=== PATIENT | male | born 1960 | race Caucasian/White ===

== ENCOUNTER 2018-08-01 18:26 | Emergency (ER) | payer MEDICARE, MEDICAID, SELFPAY ==
[2018-08-01 18:28] VITALS: BP 143/88; PULSE 97; RESP 20; TEMP 37
--- NOTE | 2018-08-01 18:34 | DI.RAD_ITS ---
SYMPTOM/DIAGNOSIS: CHOKED ON FOOD CHEST X-RAY: Portable AP view. Comparison 11/13/16 The heart is normal in size. The lungs are clear. The mediastinal structures and pleura appear intact. CONCLUSION: Normal chest.
--- NOTE | 2018-08-01 18:38 | ED.GENADUL_ITS ---
Discharge Plan Disposition Patient Disposition: HOME Condition: Good Discharge Details Chief Complaint: ThroatFB Clinical Impression: Esophageal foreign body Primary Care Provider: Elva Christian ED Provider: Isaias Ruiz Home Meds and New Rx's Prescriptions: No Action sucralfate [Carafate] 1 GM tablet 1 g PO QID Qty: 28 RF: 3 sertraline 100 MG tablet 200 mg PO DAILY RF: 0 haloperidol 1 MG tablet 2 mg PO HS RF: 0 simvastatin 80 MG tablet 80 mg PO HS RF: 0 topiramate [Topamax] 100 MG tablet 100 mg PO BID RF: 0 buspirone 15 MG tablet 30 mg PO BID RF: 0 quetiapine [Seroquel] 400 MG tablet 600 mg PO HS RF: 0 haloperidol 1 MG tablet 1 mg PO .QAM, NOON RF: 0 quetiapine [Seroquel] 400 MG tablet 400 mg PO QAM RF: 0 quetiapine [Seroquel] 400 MG tablet 400 mg PO .AFTERNOON RF: 0 naltrexone 50 MG tablet 50 mg PO DAILY RF: 0 omeprazole 40 MG capsule,delayed release(DR/EC) 40 mg PO BID Qty: 60 RF: 1 Discharge Instructions Instructions: Esophageal Foreign Body (ED) Additional Instructions: Please follow-up with Dr. Chaudhry as soon as possible for reassessment. Please eat soft foods, and avoid any meats. Please make sure all food is not very small pieces. Please take your home medications for your reflux. If you notice any worsening of your symptoms, or any new symptoms such as vomiting, diarrhea, fever, chills, shortness of breath, chest pain, numbness, weakness, or fainting , please return immediately to the emergency department for reevaluation. Please follow up with your primary care provider as soon as possible for reassessment and reevaluation. As always, it was a pleasure participating in your medical care today. Referrals: Elva Christian [Primary Care Provider] - Medical Decision Making This is a pleasant 57-year-old male with a very long and extensive history of food impaction, who presents today for evaluation of food impaction. He was eating a chicken piece, with no bone in it, when it got stuck in his throat. Most recent dilatation that he required for a food bolus impaction was back in April 3 months ago. Patient denies any other complaints. He is unable to completely manage his secretions secondary to the food impaction. Patient is hemodynamically stable, heart rate, lung sounds, and oxygen saturations are normal. We will give glucagon. I did contact Dr. Weiss who has managed the patient multiple times in the past, I discussed the scenario with him. He will come in to remove the patient's food impaction. Patient will be admitted under Dr. Weiss to the OR for definitive management. I have extensively reviewed the treatment plan with the patient. I have addressed all patient concerns at this time. I have also discussed the plan with the admitting physician and they agree with the current assessment and plan and have agreed to assume responsibility for the patient. All parties demonstrate verbal understanding and agreement with our assessment and plan at this time. 7:28 PM Immediately prior to going to the OR the patient had passage of his food bolus. Dr. Weiss had already assessed the patient. At this time since the patient has tolerated the passage of the food bolus, and is tolerating p.o.'s well without any vomiting or difficulty controlling secretions he can be discharged home. Dr. Weiss came and reevaluated the patient, and he agrees that he can be discharged home. Patient will be discharged with close follow-up with surgery center. I have extensively reviewed the treatment plan and discharge instructions with the patient. I have addressed all patient concerns at this time. The patient was made aware of what symptoms to monitor for that would warrant a return to the emergency department. Discussed the plan with the patient, they demonstrate verbal understanding and agreement with our assessment and plan at this time. FINDINGS: The lung aragon are clear bilaterally. No focal pulmonary consolidation is present. The cardiac silhouette is within normal limits. The costophrenic angles are sharp. The bony structures appear unremarkable. IMPRESSION: No evidence of acute cardiopulmonary disease. HPI General Date/Time Provider Initiated Documentation: 08/01/18 18:33 . HPI Narrative: This is a 57-year-old male with past medical history of esophageal impaction secondary to food boluses as well as schizophrenia and diabetes who presents today for difficulty swallowing. The patient states that roughly 45 minutes prior to arrival he was eating chicken when it got stuck again. No bones in it at that time. Since then he has been unable to control his secretions, get any liquids or solids down, and has had notable pain in the throat region. Patient denies any chest pain headache neck pain dizziness or trauma. He has no other complaints at this time. He denies any other recent surgeries, or pertinent family history. He denies any IV or illicit drug use. Related Data Home Medications Medication Instructions Recorded Confirmed buspirone 30 mg PO BID 09/06/15 08/01/18 haloperidol 2 mg PO HS 09/06/15 08/01/18 quetiapine [Seroquel] 600 mg PO HS 09/06/15 08/01/18 sertraline 200 mg PO DAILY 09/06/15 08/01/18 simvastatin 80 mg PO HS 09/06/15 08/01/18 topiramate [Topamax] 100 mg PO BID 09/06/15 08/01/18 sucralfate [Carafate] 1 g PO QID #28 tab-cap 04/02/17 08/01/18 haloperidol 1 mg PO .QAM, NOON 09/22/17 08/01/18 quetiapine [Seroquel] 400 mg PO .AFTERNOON 09/22/17 08/01/18 quetiapine [Seroquel] 400 mg PO QAM 09/22/17 08/01/18 naltrexone 50 mg PO DAILY 09/25/17 08/01/18 omeprazole 40 mg PO BID #60 capsule. 02/12/18 08/01/18 Previous Rx's Medication Instructions Recorded omeprazole 40 mg PO BID #60 capsule. 02/12/18 Allergies Allergy/AdvReac Type Severity Reaction Status Date / Time No Known Allergies Allergy Unverified 08/01/18 18:56 General Stated Complaint: ThroatFB GENEVIEVE: 2 Review of Systems Review of Systems All systems reviewed & are unremarkable except as noted in HPI and below PFSH Medical History COPD (chronic obstructive pulmonary disease) GERD (gastroesophageal reflux disease) Hyperlipidemia Impaired fasting glucose Schizophrenia Social History Smoking/Tobacco Use Status: Former Tobacco Use Surgical History EGD - MAC (03/13/17) EGD - MAC (09/25/17) EGD - MAC (02/12/18) Exam Narrative Exam Narrative: 1.Const: Well-nourished, Well-developed, appearing stated age 2.Eyes: PERRL, no conjunctival injection, and symmetrical lids. 3.ENT: Atraumatic external nose and ears. Moist MM. Neck: Symmetric, trachea midline, No thyromegaly. Patient is unable to control his secretions. Opening wide I am unable to visualize any evidence of food impaction. Trachea is soft. 4.CVS: +S1/S2, No murmurs or gallops. Peripheral pulses 2+ and equal in all extremities. Brisk capillary refill in all extremities. 5.RESP: Unlabored respiratory effort. Clear to auscultation bilaterally. No wheezes rales or rhonchi 6.GI: Soft, Nontender/Nondistended, No hepatosplenomegaly. No guarding or rebound. 7.MSK: Normocephalic/Atraumatic, Extremities w/o deformity or ttp No cyanosis or clubbing, Normal movement of all extremities 8.Skin: Warm, Dry. No rashes or lesions. 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 Sensation grossly intact, no focal neurologic deficits. 10.Psych: (AAO) x3. Appropriate mood and affect Course Vital Signs Temperature 37.0 C 08/01/18 18:28 Pulse 97 H 08/01/18 18:28 Respiratory Rate 20 08/01/18 18:28 Blood Pressure 143/88 H 08/01/18 18:28 Temperature 37.0 C 08/01/18 18:28 Temperature Source Skin 08/01/18 18:28 Pulse 97 H 08/01/18 18:28 Respiratory Rate 20 08/01/18 18:28 Blood Pressure 143/88 H 08/01/18 18:28 Blood Pressure Position Sitting 08/01/18 18:28 Oxygen Delivery Method Room Air 08/01/18 18:28 Oxygen Flow Rate 0 08/01/18 18:28
[2018-08-01] MEDS: MORPHine 10 MG/ML VIAL 4 MG IVP (18:44)
[2018-08-01] MEDS: Normal Saline 1,000 ML 1000 ML IV (18:45)
[2018-08-01 18:53] LABS: Abs Immature Grans 0.01 k/cumm (0.0-0.09); Absolute Basophil Count 0.03 k/cumm (0.0-0.2); Absolute Eosinophil Count 0.23 k/cumm (0.0-0.7); Absolute Lymphocyte Count 1.62 k/cumm (1.2-3.4); Absolute Monocyte Count 0.37 k/cumm (0.11-0.7); Absolute Neutrophil Count 2.82 k/cumm (1.2-6.7); Basophils % 0.6; Eosinophils % 4.5; HCT 42.3 % (40.0-50.0); HGB 13.9 g/dL (13.5-17.5); Immature Grans % 0.2; Lymphocytes % 31.9; Mean Corp. HGB Concentration 32.9 g/dL (32.0-36.0); Mean Corpuscular Hemoglobin 29.6 pg (27.0-33.0); Mean Corpuscular Volume 90.2 fL (80-95); Mean Platelet Volume 9.6 fL (8.0-11.0); Monocytes % 7.3; Neutrophils % 55.5; Platelet Count 200 x1000/uL (130-400); RBC 4.69 m/cumm (4.50-6.00); White Blood Cell Count 5.08 k/cumm (4.4-10.8)
[2018-08-01 19:04] LABS: ALT 35 U/L (12-78); AST 29 U/L (15-37); Albumin 3.9 g/dL (3.4-5.0); Alkaline Phosphatase 71 U/L (46-116); Anion Gap 12.4 mmol/L (3-11); BUN 11 mg/dL (7-18); Bilirubin, Total 0.2 mg/dL (0.2-1.0); CO2 25.6 mmol/L (21.0-32.0); CREATININE 0.81 mg/dL (0.70-1.30); Calcium 8.6 mg/dL (8.5-10.1); Chloride 104 mmol/L (98-107); Glucose 95 mg/dL (70-100); Potassium 3.4 mmol/L (3.5-5.1); Sodium 142 mmol/L (136-145); Total Protein 7.2 g/dL (6.4-8.2)
--- NOTE | 2018-08-01 19:19 | DI.VRAD_ITS ---
EXAM: XR Chest, 1 View EXAM DATE/TIME: 08/01/2018 6:35 PM CLINICAL HISTORY: 57 years old, male; Signs and symptoms; Other: Chocked on food TECHNIQUE: XR of the chest, 1 view. COMPARISON: CR RIGHT RIBS TO INCLUDE CXR 11/13/2016 9:19 AM FINDINGS: The lung aragon are clear bilaterally. No focal pulmonary consolidation is present. The cardiac silhouette is within normal limits. The costophrenic angles are sharp. The bony structures appear unremarkable. IMPRESSION: No evidence of acute cardiopulmonary disease. Dictated and Authenticated by: Russell Higuera MD. Ordering:LUCINA BUCKNER MD
[2018-08-01 19:39] VITALS: BP 117/69; PULSE 80; RESP 16; O2SAT 96
[2018-08-01 19:45] VITALS: BP 117/69; PULSE 80; RESP 16; O2SAT 96
== END 2018-08-01 19:48 | disposition home or self-care (01) ==
LOC: ER 19:58
PROVIDERS: Emergency Provider Student in an Organized Health Care Education/Training Program; PCP Family Medicine
DX: T18.128A Food in esophagus causing other injury, initial encounter (principal); R13.10 Dysphagia, unspecified; E11.9 Type 2 diabetes mellitus without complications
CPT/HCPCS: 36415; 80053; 96361; 96374; 96375; 99284; 71045; 85025; J1610; J2270

== ENCOUNTER → 2018-08-23 11:28 | Outpatient (BNVA) | payer MEDICARE, MEDICAID, SELFPAY | PROVIDERS: PCP Family Medicine; Referring Provider Family Medicine; Visit Provider Surgery | DX: T18.108D Unspecified foreign body in esophagus causing other injury, subsequent encounter (principal); J44.9 Chronic obstructive pulmonary disease, unspecified; F17.210 Nicotine dependence, cigarettes, uncomplicated | CPT/HCPCS: 99212; 99213 ==

== ENCOUNTER 2019-01-12 16:45 | Emergency (ER) | payer MEDICARE, MEDICAID, SELFPAY ==
[2019-01-12 16:52] VITALS: BP 143/76; PULSE 86; RESP 20; TEMP 36.8; O2SAT 95
--- NOTE | 2019-01-12 17:16 | W.ED.GENAD ---
Discharge Plan Disposition Patient Disposition: HOME Discharge Details Chief Complaint: ThroatFB Primary Care Provider: Elva Christian ED Provider: Shaun Sanches Home Meds and New Rx's Prescriptions: No Action sucralfate [Carafate] 1 GM tablet 1 g PO QID Qty: 28 RF: 3 sertraline 100 MG tablet 200 mg PO DAILY RF: 0 haloperidol 1 MG tablet 2 mg PO HS RF: 0 simvastatin 80 MG tablet 80 mg PO HS RF: 0 topiramate [Topamax] 100 MG tablet 100 mg PO BID RF: 0 buspirone 15 MG tablet 30 mg PO BID RF: 0 quetiapine [Seroquel] 400 MG tablet 600 mg PO HS RF: 0 haloperidol 1 MG tablet 1 mg PO .QAM, NOON RF: 0 quetiapine [Seroquel] 400 MG tablet 400 mg PO QAM RF: 0 quetiapine [Seroquel] 400 MG tablet 400 mg PO .AFTERNOON RF: 0 naltrexone 50 MG tablet 50 mg PO DAILY RF: 0 omeprazole 40 MG capsule,delayed release(DR/EC) 40 mg PO BID Qty: 60 RF: 1 Discharge Data Discharge Date/Time-TO BE ENTERED AT DEPARTURE: 01/12/19 17:25 Medical Decision Making Patient presenting the emergency department for chief complaint of esophageal foreign body. Patient states that he was eating meat approximately an hour prior to arrival when he noted a foreign body sensation in his throat. Patient has history of foreign body in his throat. Physical exam shows clear lung sounds but difficult phonation of patient, gurgling, and patient moderately managing secretions with some gurgling noises heard during phonation. Discussed risk versus benefit of patient using effervescent compared to other medical therapy and patient stated understanding risk of effervescent versus other possibilities and patient states that he is okay using effervescent granules. Patient given effervescent granules and water with me at bedside and after second drink of water patient had almost instantaneous relief of symptoms. Patient was observed for additional 40 minutes in the emergency depart and had no further worsening of symptoms or return of discomfort. Patient encouraged to return to the emergency department for new or worsening symptoms otherwise follow-up with primary care provider as needed. Return precautions discussed. After discussion of diagnosis and plan of care patient has no further needs, questions, or concerns and states clear understanding to return to the emergency department for any worsening symptoms. HPI General Mode of arrival: ambulatory. Date/Time Provider Initiated Documentation: 01/12/19 16:49. Limitations to Documentation: no limitations. Information obtained by: RN notes reviewed. History of Present Illness 58 year old M presents to the emergency department with the chief complaint of Foreign body throat, described as moderate and similar to prior episodes, with intensity rated at 4. Quality is described as aching, and is localized to the neck. Patient started experiencing this minute(s) (30) and it has been constant. No relieving factors improve symptom(s), Eating worsens symptoms . Patient notes no other symptoms.. Patient did receive the following treatments prior to arrival, none Related Data Home Medications Medication Instructions Recorded Confirmed buspirone 30 mg PO BID 09/06/15 08/23/18 haloperidol 2 mg PO HS 09/06/15 08/23/18 quetiapine [Seroquel] 600 mg PO HS 09/06/15 08/23/18 sertraline 200 mg PO DAILY 09/06/15 08/23/18 simvastatin 80 mg PO HS 09/06/15 08/23/18 topiramate [Topamax] 100 mg PO BID 09/06/15 08/23/18 sucralfate [Carafate] 1 g PO QID #28 tab-cap 04/02/17 08/23/18 haloperidol 1 mg PO .QAM, NOON 09/22/17 08/23/18 quetiapine [Seroquel] 400 mg PO .AFTERNOON 09/22/17 08/23/18 quetiapine [Seroquel] 400 mg PO QAM 09/22/17 08/23/18 naltrexone 50 mg PO DAILY 09/25/17 08/23/18 omeprazole 40 mg PO BID #60 capsule. 02/12/18 08/23/18 Previous Rx's Medication Instructions Recorded omeprazole 40 mg PO BID #60 capsule. 02/12/18 Allergies Allergy/AdvReac Type Severity Reaction Status Date / Time No Known Allergies Allergy Unverified 08/01/18 18:56 General Stated Complaint: ThroatFB GENEVIEVE: 2 Review of Systems ENT Reports as per HPI Cardiovascular Denies chest pain and Denies dyspnea Respiratory Denies dyspnea and Reports stridor [facility] Medical History COPD (chronic obstructive pulmonary disease) GERD (gastroesophageal reflux disease) Hyperlipidemia Impaired fasting glucose Schizophrenia Surgical History EGD - MAC (03/13/17) EGD - MAC (09/25/17) EGD - MAC (02/12/18) Social History Smoking/Tobacco Use Status: Current every day Tobacco Type: cigarettes Alcohol Intake: current Drug use: Never Substance use type: does not use Do you feel safe in your relationship?: Yes Exam Const General: cooperative, in distress moderate and respiratory and anxious Orientation: alert, awake and oriented x3 HENMT Face and sinus: normal facial exam Mouth: oral mucosae normal, lip normal, tongue normal, audible dysphonia, drooling, No mouth trauma, muffled voice, no trismus and No restricted motion Throat: posterior oropharynx normal and uvula midline Neck Neck: normal visual inspection, full ROM, trachea midline, supple and no anterior neck swelling Resp Effort & Inspection: not able to speak in complete sentences, labored, no retractions and stridor Auscultation: clear to auscultation bilaterally and lung sounds not diminished Cardio Rate: regular rate Rhythm: regular rhythm Heart Sounds: S1 normal and S2 normal Course Vital Signs Temperature 36.8 C 01/12/19 16:52 Pulse 86 01/12/19 16:52 Respiratory Rate 20 01/12/19 16:52 Blood Pressure 143/76 H 01/12/19 16:52 Pulse Oximetry 95 01/12/19 16:52 Temperature 36.8 C 01/12/19 16:52 Temperature Source Temporal Artery Scan 01/12/19 16:52 Pulse 86 01/12/19 16:52 Respiratory Rate 20 01/12/19 16:52 Respiratory Effort Non-Labored 01/12/19 16:52 Respiratory Pattern Normal 01/12/19 17:02 Blood Pressure 143/76 H 01/12/19 16:52 Pulse Oximetry 95 01/12/19 16:52 Oxygen Delivery Method Room Air 01/12/19 16:52 Oxygen Flow Rate 0 01/12/19 16:52
[2019-01-12 17:25] VITALS: BP 143/76; PULSE 86; RESP 20; TEMP 36.8; O2SAT 95
== END 2019-01-12 17:25 | disposition home or self-care (01) ==
PROVIDERS: Emergency Provider Nurse Practitioner Family; PCP Family Medicine
DX: T17.228A Food in pharynx causing other injury, initial encounter (principal)
CPT/HCPCS: 99282

== ENCOUNTER 2019-01-15 19:10 | Emergency (ER) | payer MEDICARE, MEDICAID, SELFPAY ==
[2019-01-15 19:14] VITALS: BP 135/74; PULSE 84; RESP 18; TEMP 36.6; O2SAT 96
--- NOTE | 2019-01-15 19:20 | W.ED.GENAD ---
Discharge Plan Disposition Patient Disposition: HOME Condition: Improving Discharge Details Chief Complaint: GenMedical Clinical Impression: Esophageal foreign body Primary Care Provider: Elva Christian ED Provider: Palmira Sanders Home Meds and New Rx's Prescriptions: Continued sucralfate [Carafate] 1 GM tablet 1 g PO QID Qty: 28 RF: 3 sertraline 100 MG tablet 200 mg PO DAILY RF: 0 simvastatin 80 MG tablet 80 mg PO HS RF: 0 topiramate [Topamax] 100 MG tablet 100 mg PO BID RF: 0 buspirone 15 MG tablet 30 mg PO BID RF: 0 quetiapine [Seroquel] 400 MG tablet 600 mg PO HS RF: 0 quetiapine [Seroquel] 400 MG tablet 200 mg PO QAM RF: 0 quetiapine [Seroquel] 400 MG tablet 200 mg PO .AFTERNOON RF: 0 naltrexone 50 MG tablet 50 mg PO DAILY RF: 0 omeprazole 40 MG capsule,delayed release(DR/EC) 40 mg PO BID Qty: 60 RF: 1 Discharge Instructions Instructions: Esophageal Foreign Body (ED) Additional Instructions: Encourage hydration. Please stop eating steak. Please keep follow-up appointment with general surgeon. If you develop difficulty breathing, shortness of breath, discomfort or other new/worsening symptoms please seek care urgently once again. Referrals: Elva Christian [Primary Care Provider] - Medical Decision Making Patient is a 58-year-old male presenting today with recurrent episode of esophageal foreign body. He reports he was eating steak right arm arrival and since that time he has not been able to handle secretions, has mild difficulty with phonation and pain in his throat. Reports that he feels the same as when he is a foreign bodies historically. Patient had used effervescent with good relief. He reports that he has had this on multiple occasions hysterically. His last EGD was last summer and reports that no cause of his recurrent esophageal foreign body issues were identified. Patient is having difficulty breathing Exam, patient is moving air well. He does have difficulty with phonation and voice is muffled. No notable deformity of the anterior throat. Difficulty managing secretions frequently spitting into emesis bag Patient I discussed risk/benefits of repeat effervescent usage. He voices understanding and wishes to proceed. Effervescent was placed into the patient's mouth and he attempted multiple occasions to clear his foreign body with fluid following packet. However, this was unsuccessful. Patient is continuing to breathe comfortably. Consult with Dr. Baird who will bring patient for EGD. We discussed Gluocagon and she advised that she will come in with plan for the patient to go to OR. 2 minutes after speaking with the general surgery, the patient call us back and let us know if the foreign body had passed. He is now able to drink water, phonation is clear and is handling secretions. We will continue to monitor the patient. Patient continues to feel well. He is drinking fluids. Denies any foreign body sensation, sore throat, difficulty breathing. No dysphonia. Patient has upcoming appointment with general surgeon for evaluation of his recurrent esophageal FB issues. Encouraged that he keep this appointment. We discussed new/worsening symptom and when to seek care urgently once again. All of her questions and concerns were addressed, he is in agreement with this plan. [facility] General Mode of arrival: ambulatory. Date/Time Provider Initiated Documentation: 01/15/19 19:20. Limitations to Documentation: no limitations. Information obtained by: patient and RN notes reviewed. History of Present Illness 58 year old M presents to the emergency department with the chief complaint of esophageal FB, described as severe, Quality is described as aching, and is localized to the mouth. Patient reports no radiation. Patient started experiencing this minute(s) and it has been constant. No relieving factors improve symptom(s), Eating worsens symptoms . Patient notes loss of appetite; denies chest pain, cough, fever/chills, nausea/vomiting, rash, shortness of breath and weakness. Patient did receive the following treatments prior to arrival, none Related Data Home Medications Medication Instructions Recorded Confirmed buspirone 30 mg PO BID 09/06/15 01/15/19 quetiapine [Seroquel] 600 mg PO HS 09/06/15 01/15/19 sertraline 200 mg PO DAILY 09/06/15 01/15/19 simvastatin 80 mg PO HS 09/06/15 01/15/19 topiramate [Topamax] 100 mg PO BID 09/06/15 01/15/19 sucralfate [Carafate] 1 g PO QID #28 tab-cap 04/02/17 01/15/19 quetiapine [Seroquel] 200 mg PO .AFTERNOON 09/22/17 01/15/19 quetiapine [Seroquel] 200 mg PO QAM 09/22/17 01/15/19 naltrexone 50 mg PO DAILY 09/25/17 01/15/19 omeprazole 40 mg PO BID #60 capsule. 02/12/18 01/15/19 Previous Rx's Medication Instructions Recorded omeprazole 40 mg PO BID #60 capsule. 02/12/18 Allergies Allergy/AdvReac Type Severity Reaction Status Date / Time No Known Allergies Allergy Unverified 01/15/19 19:38 General GENEVIEVE: 2 Review of Systems Constitutional Reports as per HPI, Denies chills, Denies fatigue, Denies fever(s) and Denies headache(s) ENT Reports as per HPI, Reports change in voice, Denies headache(s), Denies mouth pain, Reports sore throat (FB sensation) and Denies tongue swelling Cardiovascular Reports as per HPI, Denies chest pain and Denies dyspnea Respiratory Reports as per HPI, Denies cough and Denies dyspnea Gastrointestinal Reports as per HPI, Denies abdominal pain, Denies nausea and Denies vomiting Musculoskeletal Reports as per HPI and Denies back pain Integumentary/Breasts Reports as per HPI and Denies rash Neurologic Reports as per HPI and Denies headache(s) Endocrine Denies fatigue Allergic/Immunologic Denies tongue swelling [facility] Medical History COPD (chronic obstructive pulmonary disease) GERD (gastroesophageal reflux disease) Hyperlipidemia Impaired fasting glucose Schizophrenia Surgical History EGD - MAC (03/13/17) EGD - MAC (09/25/17) EGD - MAC (02/12/18) Social History Smoking/Tobacco Use Status: Current every day Tobacco Type: cigarettes Alcohol Intake: current Drug use: Never Substance use type: does not use Do you feel safe in your relationship?: Yes Exam Const General: cooperative, healthy appearing, comfortable, no acute distress and well developed Nutritional Appearance: average body habitus and well nourished Orientation: alert and awake HENMT Head: normal to inspection Face and sinus: normal facial exam Mouth: oral mucosae normal, lip normal, tongue normal, oropharynx normal and moist mucous membranes Teeth and gingiva: dentition normal Throat: posterior oropharynx normal and tonsils absent Neck Neck: normal visual inspection, full ROM, no lymphadenopathy, no meningeal signs, trachea midline, supple, no anterior neck swelling, no midline deformity, nontender, no tracheal deviation and No submandibular swelling Resp Effort & Inspection: normal respiratory effort, able to speak in complete sentences and no respiratory distress Auscultation: clear to auscultation bilaterally, no rales, no rhonchi and no wheezes Cardio Rate: regular rate Rhythm: regular rhythm Heart Sounds: S1 normal and S2 normal Skin General skin exam: no rashes or lesions noted Trauma: no lacerations or abrasions Neuro General: alert and awake Cognition: normal cognition Speech: speech normal Gait: normal gait Psych Appearance: grossly normal and well kempt Mental Status: mental status grossly normal Speech and Movement: speech and movement normal
--- NOTE | 2019-01-15 19:24 | ED.GENADUL_ITS ---
Discharge Plan Disposition Patient Disposition: HOME Condition: Improving Discharge Details Chief Complaint: GenMedical Clinical Impression: Esophageal foreign body Primary Care Provider: Elva Christian ED Provider: Palmira Sanders Home Meds and New Rx's Prescriptions: Continued sucralfate [Carafate] 1 GM tablet 1 g PO QID Qty: 28 RF: 3 sertraline 100 MG tablet 200 mg PO DAILY RF: 0 simvastatin 80 MG tablet 80 mg PO HS RF: 0 topiramate [Topamax] 100 MG tablet 100 mg PO BID RF: 0 buspirone 15 MG tablet 30 mg PO BID RF: 0 quetiapine [Seroquel] 400 MG tablet 600 mg PO HS RF: 0 quetiapine [Seroquel] 400 MG tablet 200 mg PO QAM RF: 0 quetiapine [Seroquel] 400 MG tablet 200 mg PO .AFTERNOON RF: 0 naltrexone 50 MG tablet 50 mg PO DAILY RF: 0 omeprazole 40 MG capsule,delayed release(DR/EC) 40 mg PO BID Qty: 60 RF: 1 Discharge Instructions Instructions: Esophageal Foreign Body (ED) Additional Instructions: Encourage hydration. Please stop eating steak. Please keep follow-up appointment with general surgeon. If you develop difficulty breathing, shortness of breath, discomfort or other new/worsening symptoms please seek care urgently once again. Referrals: Elva Christian [Primary Care Provider] - Medical Decision Making Patient is a 58-year-old male presenting today with recurrent episode of esophageal foreign body. He reports he was eating steak right arm arrival and since that time he has not been able to handle secretions, has mild difficulty with phonation and pain in his throat. Reports that he feels the same as when he is a foreign bodies historically. Patient had used effervescent with good relief. He reports that he has had this on multiple occasions hysterically. His last EGD was last summer and reports that no cause of his recurrent esophageal foreign body issues were identified. Patient is having difficulty breathing Exam, patient is moving air well. He does have difficulty with phonation and voice is muffled. No notable deformity of the anterior throat. Difficulty managing secretions frequently spitting into emesis bag Patient I discussed risk/benefits of repeat effervescent usage. He voices und erstanding and wishes to proceed. Effervescent was placed into the patient's mouth and he attempted multiple occasions to clear his foreign body with fluid following packet. However, this was unsuccessful. Patient is continuing to breathe comfortably. Consult with Dr. Baird who will bring patient for EGD. We discussed Gluocagojaspreet and she advised that she will come in with plan for the patient to go to OR. 2 minutes after speaking with the general surgery, the patient call us back and let us know if the foreign body had passed. He is now able to drink water, phonation is clear and is handling secretions. We will continue to monitor the patient. Patient continues to feel well. He is drinking fluids. Denies any foreign body sensation, sore throat, difficulty breathing. No dysphonia. Patient has upcoming appointment with general surgeon for evaluation of his recurrent esophageal FB issues. Encouraged that he keep this appointment. We discussed new/worsening symptom and when to seek care urgently once again. All of her questions and concerns were addressed, he is in agreement with this plan. [facility] General Mode of arrival: ambulatory . Date/Time Provider Initiated Documentation: 01/15/19 19:20 . Limitations to Documentation: no limitations . Information obtained by: patient and RN notes reviewed . History of Present Illness 58 year old M presents to the emergency department with the chief complaint of esophageal FB, described as severe, Quality is described as aching, and is localized to the mouth. Patient reports no radiation. Patient started experiencing this minute(s) and it has been constant. No relieving factors improve symptom(s), Eating worsens symptoms . Patient notes loss of appetite; denies chest pain, cough, fever/chills, nausea/vomiting, rash, shortness of breath and weakness. Patient did receive the following treatments prior to arrival, none Related Data Home Medications Medication Instructions Recorded Confirmed buspirone 30 mg PO BID 09/06/15 01/15/19 quetiapine [Seroquel] 600 mg PO HS 09/06/15 01/15/19 sertraline 200 mg PO DAILY 09/06/15 01/15/19 simvastatin 80 mg PO HS 09/06/15 01/15/19 topiramate [Topamax] 100 mg PO BID 09/06/15 01/15/19 sucralfate [Carafate] 1 g PO QID #28 tab-cap 04/02/17 01/15/19 quetiapine [Seroquel] 200 mg PO .AFTERNOON 09/22/17 01/15/19 quetiapine [Seroquel] 200 mg PO QAM 09/22/17 01/15/19 naltrexone 50 mg PO DAILY 09/25/17 01/15/19 omeprazole 40 mg PO BID #60 capsule. 02/12/18 01/15/19 Previous Rx's Medication Instructions Recorded omeprazole 40 mg PO BID #60 capsule. 02/12/18 Allergies Allergy/AdvReac Type Severity Reaction Status Date / Time No Known Allergies Allergy Unverified 01/15/19 19:38 General GENEVIEVE: 2 Review of Systems Constitutional Reports as per HPI, Denies chills, Denies fatigue, Denies fever(s) and Denies headache(s) ENT Reports as per HPI, Reports change in voice, Denies headache(s), Denies mouth pain, Reports sore throat (FB sensation) and Denies tongue swelling Cardiovascular Reports as per HPI, Denies chest pain and Denies dyspnea Respiratory Reports as per HPI, Denies cough and Denies dyspnea Gastrointestinal Reports as per HPI, Denies abdominal pain, Denies nausea and Denies vomiting Musculoskeletal Reports as per HPI and Denies back pain Integumentary/Breasts Reports as per HPI and Denies rash Neurologic Reports as per HPI and Denies headache(s) Endocrine Denies fatigue Allergic/Immunologic Denies tongue swelling [facility] Medical History COPD (chronic obstructive pulmonary disease) GERD (gastroesophageal reflux disease) Hyperlipidemia Impaired fasting glucose Schizophrenia Surgical History EGD - MAC (03/13/17) EGD - MAC (09/25/17) EGD - MAC (02/12/18) Social History Smoking/Tobacco Use Status: Current every day Tobacco Type: cigarettes Alcohol Intake: current Drug use: Never Substance use type: does not use Do you feel safe in your relationship?: Yes Exam Const General: cooperative, healthy appearing, comfortable, no acute distress and well developed Nutritional Appearance: average body habitus and well nourished Orientation: alert and awake HENMT Head: normal to inspection Face and sinus: normal facial exam Mouth: oral mucosae normal, lip normal, tongue normal, oropharynx normal and moist mucous membranes Teeth and gingiva: dentition normal Throat: posterior oropharynx normal and tonsils absent Neck Neck: normal visual inspection, full ROM, no lymphadenopathy, no meningeal signs, trachea midline, supple, no anterior neck swelling, no midline deformity, nontender, no tracheal deviation and No submandibular swelling Resp Effort & Inspection: normal respiratory effort, able to speak in complete sentences and no respiratory distress Auscultation: clear to auscultation bilaterally, no rales, no rhonchi and no wheezes Cardio Rate: regular rate Rhythm: regular rhythm Heart Sounds: S1 normal and S2 normal Skin General skin exam: no rashes or lesions noted Trauma: no lacerations or abrasions Neuro General: alert and awake Cognition: normal cognition Speech: speech normal Gait: normal gait Psych Appearance: grossly normal and well kempt Mental Status: mental status grossly normal Speech and Movement: speech and movement normal
--- NOTE | 2019-01-15 20:09 | NUR.NOTE ---
Nursing Note: 10 mins. after effervescent medication patient states he thinks it has moved and swallowed it. Water taken and swallowed. Palmira MISTRY notified and in room. --Cj HA. Patient now 2010 continues to speak well.
== END 2019-01-15 20:29 | disposition home or self-care (01) ==
PROVIDERS: Emergency Provider Physician Assistant; PCP Family Medicine
DX: T18.128A Food in esophagus causing other injury, initial encounter (principal); K21.9 Gastro-esophageal reflux disease without esophagitis; J44.9 Chronic obstructive pulmonary disease, unspecified; F17.210 Nicotine dependence, cigarettes, uncomplicated
CPT/HCPCS: 99283

== ENCOUNTER → 2019-02-25 10:13 | Outpatient (BNVA) | payer MEDICARE, MEDICAID, SELFPAY | PROVIDERS: PCP Family Medicine; Referring Provider Family Medicine; Visit Provider Physical Therapy Assistant | DX: R13.10 Dysphagia, unspecified (principal); J44.9 Chronic obstructive pulmonary disease, unspecified; Z87.891 Personal history of nicotine dependence | CPT/HCPCS: 99212; 99213 ==

== ENCOUNTER 2019-03-31 20:00 | Emergency (ER) | payer MEDICARE, MEDICAID, SELFPAY ==
[2019-03-31 20:04] VITALS: BP 139/84; PULSE 96; RESP 18; TEMP 36.4; O2SAT 94
--- NOTE | 2019-03-31 20:16 | W.ED.GENAD ---
Discharge Plan Disposition Patient Disposition: HOME Condition: Good Discharge Details Chief Complaint: ThroatFB Clinical Impression: Esophageal foreign body ED Provider: Sohan Rushing [place] Meds and New Rx's Prescriptions: Continued hydroxyzine HCl 25 mg tablet 25 mg PO QID RF: 0 sucralfate [Carafate] 1 GM tablet 1 g PO QID Qty: 28 RF: 3 sertraline 100 MG tablet 200 mg PO DAILY RF: 0 simvastatin 80 MG tablet 80 mg PO HS RF: 0 topiramate [Topamax] 100 MG tablet 100 mg PO BID RF: 0 buspirone 15 MG tablet 30 mg PO BID RF: 0 quetiapine [Seroquel] 400 mg tablet 800 mg PO HS RF: 0 naltrexone 50 mg tablet 100 mg PO DAILY RF: 0 omeprazole 40 MG capsule,delayed release(DR/EC) 40 mg PO BID Qty: 60 RF: 1 Vraylar 6 mg Capsule 6 mg PO DAILY RF: 0 Discharge Instructions Instructions: Soft Diet (ED), Esophageal Foreign Body (ED) Additional Instructions: Be sure to follow up with surgery in April as planned for repeat endoscopy. You need to remember to chew your food well prior to swallowing. Continue your medications for reflux. Soft diet for the next few days. Return to ED for any further problems swallowing, difficulty breathing. Referrals: [facility] [Provider Group] Medical Decision Making Patient with esophageal foreign body which he has had previously. No airway difficulty. Unable to swallow his own saliva. IV placed and glucagon was ordered. Plan was to contact radiology to bring over effervescent to use. However, prior to getting the glucagon patient was able to get some of the chicken up and the rest went down. He is now drinking soda without difficulty. He has no difficulty breathing. He has no pain with swallowing. Patient already has endoscopy scheduled in April per him as part of follow-up from previous esophagitis/gastritis/esophageal foreign body. He is to keep this appointment. He is to continue his reflux medications. Soft diet for the next couple of days. Return to ED for issues. Medical Records Medical records reviewed: Yes I reviewed the patient's medical records. HPI General Mode of arrival: ambulatory. Date/Time Provider Initiated Documentation: 03/31/19 20:07. Limitations to Documentation: no limitations. Information obtained by: patient. HPI Narrative: Patient presents to ED with complaint of esophageal foreign body. He has a piece of chicken stuck rather high up. He is unable to swallow anything including his saliva at this point. He has had this previously. He has waited a couple hours because a lot of times it will clear on its own. It has not cleared so he came in for evaluation. He does not have difficulty breathing at all. Related Data Home Medications Medication Instructions Recorded Confirmed buspirone 30 mg PO BID 09/06/15 03/31/19 sertraline 200 mg PO DAILY 09/06/15 03/31/19 simvastatin 80 mg PO HS 09/06/15 03/31/19 topiramate [Topamax] 100 mg PO BID 09/06/15 03/31/19 sucralfate [Carafate] 1 g PO QID #28 tab-cap 04/02/17 03/31/19 omeprazole 40 mg PO BID #60 capsule. 02/12/18 03/31/19 hydroxyzine HCl 25 mg tablet 25 mg PO QID 02/25/19 03/31/19 naltrexone 50 mg tablet 100 mg PO DAILY tab 02/25/19 03/31/19 quetiapine 400 mg tablet 800 mg PO HS tab 02/25/19 03/31/19 Vraylar 6 mg PO DAILY 03/31/19 03/31/19 Previous Rx's Medication Instructions Recorded omeprazole 40 mg PO BID #60 capsule. 02/12/18 Allergies Allergy/AdvReac Type Severity Reaction Status Date / Time No Known Allergies Allergy Verified 02/25/19 10:25 General Stated Complaint: ThroatFB GENEVIEVE: 3 Review of Systems Review of Systems As documented in HPI otherwise negative as below. Const: no fever, chills, weakness Resp: no cough, SOB, pleuritic pain CV: no CP, diaphoresis, edema, syncope GI: no abdominal pain, nausea, vomiting, diarrhea Neuro: no headache, numbness, focal weakness, confusion PFSH Medical History COPD (chronic obstructive pulmonary disease) GERD (gastroesophageal reflux disease) Hyperlipidemia Impaired fasting glucose Schizophrenia Surgical History EGD - MAC (03/13/17) EGD - MAC (09/25/17) EGD - MAC (05/25/18) Social History Smoking/Tobacco Use Status: Former Tobacco Use Alcohol Intake: current Alcohol Intake frequency: a few times a week Alcohol type: beer Drug use: Never Substance use type: does not use Do you feel safe at home: Yes Do you feel safe in your relationship?: Yes Exam Narrative Exam Narrative: Vitals: Afebrile with normal vital signs. Const: WDWN male in NAD. HEENT: NC/AT. Normal facial exam. Normal OP exam. Neck: Supple. Trachea midline. No stridor. Lungs: Normal respiratory effort. Lungs are clear. Cor: RRR without murmur/gallop. Good radial pulses. Neuro: A+O x 3. CN grossly in tact. Good strength and no focal deficit. Course Vital Signs Temperature 97.5 F L 03/31/19 20:04 Pulse 96 H 03/31/19 20:04 Respiratory Rate 18 03/31/19 20:04 Blood Pressure 139/84 03/31/19 20:04 Pulse Oximetry 94 L 03/31/19 20:04 Temperature 97.5 F L 03/31/19 20:04 Temperature Source Tympanic 03/31/19 20:04 Pulse 96 H 03/31/19 20:04 Respiratory Rate 18 03/31/19 20:04 Respiratory Effort Non-Labored 03/31/19 20:09 Respiratory Pattern Normal 03/31/19 20:09 Blood Pressure 139/84 03/31/19 20:04 Pulse Oximetry 94 L 03/31/19 20:04 Oxygen Delivery Method Room Air 03/31/19 20:04 Oxygen Flow Rate 0 03/31/19 20:04 Pain Level 8 03/31/19 20:04
--- NOTE | 2019-03-31 20:25 | NUR.NOTE ---
Nursing Note: meat cleared throat on its own prior to meds given Pt is feeling better.
[2019-03-31 20:32] VITALS: BP 119/81; PULSE 92; RESP 18; O2SAT 95
[2019-03-31 20:39] VITALS: BP 119/81; PULSE 92; RESP 18; O2SAT 95
== END 2019-03-31 20:41 | disposition home or self-care (01) ==
PROVIDERS: Emergency Provider Emergency Medicine; PCP Family Medicine
DX: T18.128A Food in esophagus causing other injury, initial encounter (principal); J44.9 Chronic obstructive pulmonary disease, unspecified; Z87.891 Personal history of nicotine dependence
CPT/HCPCS: 99283; 99282

== ENCOUNTER → 2019-05-06 09:18 | Outpatient (BNVA) | payer MEDICARE, MEDICAID, SELFPAY | PROVIDERS: PCP Family Medicine; Referring Provider Family Medicine; Visit Provider Physical Therapy Assistant | DX: R13.10 Dysphagia, unspecified (principal) | CPT/HCPCS: 99213 ==

== ENCOUNTER 2019-05-17 18:19 | Emergency (ER) | payer MEDICARE, MEDICAID, SELFPAY ==
[2019-05-17 18:22] VITALS: TEMP 36.8
--- NOTE | 2019-05-17 18:31 | W.ED.GENAD ---
Discharge Plan Disposition Patient Disposition: HOME Condition: Improving Discharge Details Chief Complaint: GenMedical Clinical Impression: Esophageal foreign body Primary Care Provider: Elva Christian ED Provider: Shaun Sanches Home Meds and New Rx's Prescriptions: No Action hydroxyzine HCl 25 mg tablet 25 mg PO QID RF: 0 sucralfate [Carafate] 1 GM tablet 1 g PO QID Qty: 28 RF: 3 sertraline 100 MG tablet 200 mg PO DAILY RF: 0 simvastatin 80 MG tablet 80 mg PO HS RF: 0 topiramate [Topamax] 100 MG tablet 100 mg PO BID RF: 0 buspirone 15 MG tablet 30 mg PO BID RF: 0 quetiapine [Seroquel] 400 mg tablet 800 mg PO HS RF: 0 naltrexone 50 mg tablet 100 mg PO DAILY RF: 0 omeprazole 40 MG capsule,delayed release(DR/EC) 40 mg PO BID Qty: 60 RF: 1 Vraylar 6 mg Capsule 6 mg PO DAILY RF: 0 Discharge Instructions Instructions: Esophageal Foreign Body (ED) Additional Instructions: Return immediately to the emergency department for any new or worsening symptoms. It is very important that you chew your food thoroughly and cut food into very small bites. Please follow-up with general surgery as previously arranged. Referrals: Elizabeth Jackson MD [ [facility] STAFF PHYSICIAN] - Medical Decision Making Patient presenting to the emergency department for chief complaint of esophageal foreign body. Patient states proximate 1 hour prior to arrival arriving to the emergency department he was eating steak along with some bread when he felt something get stuck in his throat. He tried effervescent soda drinking water and this did not help. Due to this he is presenting to the emergency department for evaluation. Patient does not have any drooling but does have a hoarse voice with audible gurgling. Lung sounds are clear patient is not tachypneic or in any respiratory failure or severe distress. Patient is very familiar to myself his eyes seen him before for the same issue. Plan to give effervescent tablets and glucagon prior to contacting surgery. Pending glucagon administration patient was given effervescent tablets and within 2 minutes patient had relief of symptoms. Patient is now breathing and talking appropriately with no further symptoms no further pain or discomfort no respiratory distress. Given this I do feel the patient is able to be safely discharged after period of monitoring. Patient monitored for an additional 30 minutes after resolution of symptoms had no new or worsening signs or symptoms. Patient is scheduled for endoscopy with Dr. Jackson this Thursday for this continue problem of food bolus. Return precautions were discussed with patient otherwise I feel that he is safe to go home. After discussion of diagnosis and plan of care patient has no further needs, questions, or concerns and states clear understanding to return to the emergency department for any worsening symptoms. HPI General Mode of arrival: ambulatory. Date/Time Provider Initiated Documentation: 05/17/19 18:25. Limitations to Documentation: no limitations. Information obtained by: patient. History of Present Illness 58 year old M presents to the emergency department with the chief complaint of Esophageal foreign body, described as moderate and similar to prior episodes, with intensity rated at 3. Quality is described as aching, and is localized to the neck. Patient started experiencing this hour(s) (1) and it has been constant. Related Data Home Medications Medication Instructions Recorded Confirmed buspirone 30 mg PO BID 09/06/15 05/17/19 sertraline 200 mg PO DAILY 09/06/15 05/17/19 simvastatin 80 mg PO HS 09/06/15 05/17/19 topiramate [Topamax] 100 mg PO BID 09/06/15 05/17/19 sucralfate [Carafate] 1 g PO QID #28 tab-cap 04/02/17 05/17/19 omeprazole 40 mg PO BID #60 capsule. 02/12/18 05/17/19 hydroxyzine HCl 25 mg tablet 25 mg PO QID 02/25/19 05/17/19 naltrexone 50 mg tablet 100 mg PO DAILY tab 02/25/19 05/17/19 quetiapine 400 mg tablet 800 mg PO HS tab 02/25/19 05/17/19 Vraylar 6 mg PO DAILY 03/31/19 05/17/19 Previous Rx's Medication Instructions Recorded omeprazole 40 mg PO BID #60 capsule. 02/12/18 Allergies Allergy/AdvReac Type Severity Reaction Status Date / Time No Known Allergies Allergy Verified 05/17/19 12:26 General Stated Complaint: GenMedical GENEVIEVE: 3 Review of Systems Constitutional Denies headache(s) ENT Reports as per HPI, Denies change in voice, Denies headache(s), Reports hoarseness, Denies mouth lesions, Reports nasal congestion, Reports odynophagia, Reports sore throat and Denies throat swelling Cardiovascular Denies chest pain Respiratory Denies chest congestion and Denies cough Gastrointestinal Reports odynophagia Neurologic Denies headache(s) Allergic/Immunologic Denies throat swelling [facility] Medical History COPD (chronic obstructive pulmonary disease) GERD (gastroesophageal reflux disease) Hyperlipidemia Impaired fasting glucose Schizophrenia Surgical History EGD - MAC (03/13/17) EGD - MAC (09/25/17) EGD - MAC (02/12/18) Social History Smoking/Tobacco Use Status: Former Tobacco Use Alcohol Intake: current Alcohol Intake frequency: a few times a week Alcohol type: beer Drug use: Never Substance use type: does not use Do you feel safe at home: Yes Do you feel safe in your relationship?: Yes Exam Const General: cooperative Orientation: alert, awake and oriented x3 [facility] General nose exam: external nose normal Mouth: oral mucosae normal, lip normal, tongue normal, drooling, muffled voice and no trismus Throat: posterior oropharynx normal, tonsils normal and uvula midline Neck Neck: normal visual inspection, full ROM, trachea midline, supple and no anterior neck swelling Resp Effort & Inspection: normal respiratory effort, able to speak in complete sentences and not tachypneic Auscultation: clear to auscultation bilaterally Cardio Rate: regular rate and not tachycardic Rhythm: regular rhythm Heart Sounds: S1 normal and S2 normal Course Vital Signs Temperature 36.8 C 05/17/19 18:22 Temperature 36.8 C 05/17/19 18:22 Temperature Source Skin 05/17/19 18:22 Respiratory Effort Non-Labored 05/17/19 18:24
[2019-05-17 18:39] VITALS: RESP 16
[2019-05-17 19:06] VITALS: BP 115/75; PULSE 75; RESP 16; O2SAT 100
== END 2019-05-17 19:09 | disposition home or self-care (01) ==
PROVIDERS: Emergency Provider Nurse Practitioner Family; PCP Family Medicine
DX: K22.2 Esophageal obstruction (principal); T18.128A Food in esophagus causing other injury, initial encounter; J44.9 Chronic obstructive pulmonary disease, unspecified; Z87.891 Personal history of nicotine dependence; K21.9 Gastro-esophageal reflux disease without esophagitis
CPT/HCPCS: 99284; 99283

== ENCOUNTER 2019-05-20 06:16 | Day surgery (SDC) | payer MEDICARE, MEDICAID, SELFPAY ==
[2019-05-20 06:27] VITALS: BP 115/73; PULSE 64; RESP 18; TEMP 36.5; O2SAT 100
[2019-05-20] MEDS: Lactated Ringers 1,000 ML 80 ML IV (06:37)
--- NOTE | 2019-05-20 07:18 | W.PM.DSUDISC ---
Discharge Plan Disposition Patient Disposition: HOME Condition: Good Discharge Details Reason For Visit: Dysphagia Attending Provider: Elizabeth Jackson Primary Care Provider: Elva Christian Home Meds and New Rx's Prescriptions: Continued hydroxyzine HCl 25 mg tablet 25 mg PO QID RF: 0 sucralfate [Carafate] 1 GM tablet 1 g PO QID Qty: 28 RF: 3 sertraline 100 MG tablet 200 mg PO DAILY RF: 0 simvastatin 80 MG tablet 80 mg PO HS RF: 0 topiramate [Topamax] 100 MG tablet 100 mg PO BID RF: 0 buspirone 15 MG tablet 30 mg PO BID RF: 0 quetiapine [Seroquel] 400 mg tablet 800 mg PO HS RF: 0 naltrexone 50 mg tablet 100 mg PO DAILY RF: 0 omeprazole 40 MG capsule,delayed release(DR/EC) 40 mg PO BID Qty: 60 RF: 1 Vraylar 6 mg Capsule 6 mg PO DAILY RF: 0 Discharge Instructions Additional Instructions: Findings: Your esophagus shows inflammation. No dilation was performed. My office will contact you with biopsy results. Continue antacids as prescribed. Do NOT eat meat or an obstruction will happen again. Follow up: Will make plans after biopsy results reviewed. Please call if you develop: fevers >101.5 Nausea or Vomiting Abdominal pain that is not transient DAY SURGERY UNIT POST COLONOSCOPY INSTRUCTIONS 1. Because there will be medication in your system for the next 24 hours, you may feel a little sleepy. Your coordination will be affected. Therefore: a. Do not drive or operate dangerous equipment for 24 hours. b. Do not drink alcohol beverages for 24 hours (not even beer). c. Plan to go home and rest for the day. 2. Generally there are no restrictions on your activity after a day or so has gone by, but you may feel a bit fatigued for a few days. 3 After you arrive home you may have a light meal and return to a normal diet as you can tolerate it without feeling sick to your stomach. 4. After surgery, you may feel pain or discomfort. This should be only transient, but if it persists please contact your doctor. 5. If there are any questions regarding the findings of your procedure, please feel free to contact your doctor. 6. If you are unable to contact your doctor with a problem, contact the hospital at [phone]. 7. Continue all your regular medications unless directed otherwise. I understand the above instructions and have no questions. Signature of Patient or Responsible Adult Escort Date/Time Name of Responsible Adult Escort Signature of Nurse Date/Time Activity:: Activity as Tolerated Diet:: Avoid large pieces of bread and meat Discharge Orders Discharge Orders: Discharge Order (Routine); Ordered 05/20/19 Ordered By: Elizabeth Jackson DS: Diagnosis Discharge Diagnosis (1) Esophagitis: Status: Acute (2) History of esophagogastroduodenoscopy (EGD):
[2019-05-20] MEDS: Lidocaine 2% Viscous 15 ML CUP (07:30)
--- NOTE | 2019-05-20 07:45 | ESO_PTH ---
PATIENT: Juanjo Story LOC: [facility] U#:[id number] AGE/SX: 58/M ROOM: RE05/20/[address]: Elizabeth Jackson MD : 1960 BED: DIS: 05/20/2019 SPEC #: [id number] RECD: 05/20/19 12:32 STATUS: JESSICA RAMON #: [id number] STEVE: 05/20/19 07:[address]: Elizabeth Jackson DEPT: Surgical Specimen RECD BY: Tita Mckinley ENTERED: 05/20/19 12:37 SP TYPE: Eso KATHARINE DR: Elva Christian Tissues: 1 - ESOPHAGUS BIOPSY 2 - ESOPHAGUS BIOPSY 3 - ESOPHAGUS BIOPSY Procedures: GROSS AND MICRO LEVEL 4 SPECIAL STAIN 1 Comments: [id number]
[2019-05-20 08:25] VITALS: BP 119/77; PULSE 66; RESP 18; O2SAT 94
--- NOTE | 2019-05-20 08:33 | ENDO_ITS ---
REPORT OF OPERATIVE PROCEDURE DATE OF SURGERY May 20, 2019 PREOPERATIVE DIAGNOSIS Esophagitis. POSTOPERATIVE DIAGNOSIS Esophagitis. PROCEDURES EGD with esophageal biopsies. SURGEON Elizabeth Jackson M.D. ANESTHESIA Monitored Anesthesia Care. INDICATIONS This is 58-year-old man who has frequent episodes of dysphagia and has had several episodes of food becoming lodged.. His last endoscopy about a year ago showed esophagitis. He has been prescribed a PPI and Carafate. PROCEDURE DESCRIPTION The patient was placed in the left lateral decubitus position. Propofol was titrated to sedation. The scope was advanced into his esophagus under direct visualization and down into the stomach and duodenum. There was no duodenitis or ulcers noted. The stomach itself appeared normal, including on retroflexed view with the exception of a very small hiatal hernia. The GE junction was carefully inspected and did not show any significant stricture or Larose's. The patient was noted to have esophagitis essentially through the entire esophagus with some linear areas of inflammation distributed fairly evenly throughout the esophagus. There was not one area that could be dilated. He did have some relative narrowing related to the inflammation and also was noted to have fairly fragile tissues. The findings are suspicious for eosinophilic esophagitis. I took biopsies from the distal mid and proximal esophagus. The tissue was noted to be quite fragile, which reinforced my decision not to do a dilation. He tolerated the procedure well and was stable to the Recovery. If the biopsies do not show eosinophilic esophagitis, then he may be a candidate for Giovanni procedure to reduce the degree of inflammation. CC: Elva Christian M.D.
== END 2019-05-20 09:00 | disposition home or self-care (01) ==
PROVIDERS: PCP Family Medicine; Visit Provider Surgery
PROC: 0DJ68ZZ Inspection of Stomach, Via Natural or Artificial Opening Endoscopic (ICD-10-PCS; CPT 43235; principal; 2019-05-20 07:30)
DX: K22.10 Ulcer of esophagus without bleeding (principal); K21.0 Gastro-esophageal reflux disease with esophagitis; K44.9 Diaphragmatic hernia without obstruction or gangrene; F20.9 Schizophrenia, unspecified
CPT/HCPCS: 43239; 88305; 88312; J2250; J3010

== ENCOUNTER 2019-06-08 07:37 | Outpatient (CLI) | payer MEDICARE, MEDICAID, SELFPAY ==
[2019-06-08 09:13] LABS: ALT 38 U/L (16-63); AST 24 U/L (15-37); Albumin 4.1 g/dL (3.4-5.0); Alkaline Phosphatase 73 U/L (46-116); Anion Gap 12.3 mmol/L (3-11); BUN 11 mg/dL (7-18); Bilirubin, Total 0.4 mg/dL (0.2-1.0); CO2 24.7 mmol/L (21.0-32.0); CREATININE 0.89 mg/dL (0.70-1.30); Calcium 8.8 mg/dL (8.5-10.1); Calculated LDL 61 mg/dL; Chloride 105 mmol/L (98-107); Cholesterol 145 mg/dL (50-200); Glucose 104 mg/dL (70-100); HDL Cholesterol 59 mg/dL (40-60); Sodium 142 mmol/L (136-145); Triglyceride 126 mg/dL (30-150)
[2019-06-08 09:39] LABS: Hemoglobin A1C 5.2 % (4.5-6.2)
== END 2019-06-08 07:57 ==
PROVIDERS: PCP Family Medicine; Visit Provider Nurse Practitioner Family
DX: F20.9 Schizophrenia, unspecified (principal); Z79.899 Other long term (current) drug therapy; E11.9 Type 2 diabetes mellitus without complications
CPT/HCPCS: 36415; 80053; 80061; 83036

== ENCOUNTER 2019-07-06 15:52 | Day surgery (SDC) | payer MEDICARE, MEDICAID, SELFPAY ==
[2019-07-06] VITALS (8 sets, daily range): BP systolic 113–136; BP diastolic 68–86; PULSE 75–90; RESP 17–19; TEMP 36.7; O2SAT 93–100
--- NOTE | 2019-07-06 15:58 | W.ED.GENAD ---
Discharge Plan Disposition Patient Disposition: HOME Condition: Improving Discharge Details Chief Complaint: ThroatFB Clinical Impression: Esophageal foreign body Attending Provider: Sonya Hodges Primary Care Provider: Elva Christian ED Provider: Brody Khalil Medical Decision Making 58-year-old male with a history of esophagitis, recurrent episodes of meat/food impaction. He presents stating that after eating pot roast this evening he felt food get stuck and has been unable to swallow his secretions. No difficulty breathing, no chest pain. Patient with no significant improvement with administration of effervescent bubbles. Seen in consultation by Dr Hodges and patient to be taken to OR for EGD. This is performed without incident. Due to bed shortage, the patient was brought from PACU back to the ED. He is now stable and improving. He is appropriate for discharge to home. HPI General Mode of arrival: ambulatory. Date/Time Provider Initiated Documentation: 07/06/19 15:54. Limitations to Documentation: no limitations. Information obtained by: patient. History of Present Illness 58 year old M presents to the emergency department with the chief complaint of Hyndman meat impaction at home, described as similar to prior episodes, Quality is described as dull and constant, and is localized to the neck. Patient reports no radiation. Patient started experiencing this minute(s) and it has been constant. No relieving factors improve symptom(s), No exacerbating factors reported . Patient notes other (Spitting secretions). Patient did receive the following treatments prior to arrival, none Related Data Home Medications Medication Instructions Recorded Confirmed buspirone 30 mg PO BID 09/06/15 07/06/19 sertraline 200 mg PO DAILY 09/06/15 07/06/19 simvastatin 80 mg PO HS 09/06/15 07/06/19 topiramate [Topamax] 100 mg PO BID 09/06/15 07/06/19 sucralfate [Carafate] 1 g PO QID #28 tab-cap 04/02/17 07/06/19 omeprazole 40 mg PO BID #60 capsule. 02/12/18 07/06/19 hydroxyzine HCl 25 mg tablet 25 mg PO QID 02/25/19 07/06/19 naltrexone 50 mg tablet 100 mg PO DAILY tab 02/25/19 07/06/19 quetiapine 400 mg tablet 800 mg PO HS tab 02/25/19 07/06/19 Vraylar 6 mg PO DAILY 03/31/19 07/06/19 Previous Rx's Medication Instructions Recorded omeprazole 40 mg PO BID #60 capsule. 02/12/18 Allergies Allergy/AdvReac Type Severity Reaction Status Date / Time No Known Allergies Allergy Verified 07/06/19 16:56 General Stated Complaint: ThroatFB GENEVIEVE: 2 Review of Systems Review of Systems Narrative: History of esophagitis, frequent meat impactions and endoscopies, most recently in April. No other complaint. [facility] Medical History COPD (chronic obstructive pulmonary disease) GERD (gastroesophageal reflux disease) Hyperlipidemia Impaired fasting glucose Schizophrenia Surgical History EGD - MAC (03/13/17) EGD - MAC (09/25/17) EGD - MAC (02/12/18) History of colonoscopy (Chronic) History of esophagogastroduodenoscopy (EGD) (Chronic) 05/20/19 Dr Elizabeth Jackson, [facility], If the biopsies do not show eosinophilic esophagitis, then he may be a candidate for Giovanni procedure to reduce the degree of inflammation. Social History Smoking/Tobacco Use Status: Former Tobacco Use Alcohol Intake: current Alcohol Intake frequency: a few times a week Alcohol type: beer Drug use: Never Substance use type: does not use Do you feel safe at home: Yes Do you feel safe in your relationship?: Yes Exam Narrative Exam Narrative: GEN: awake, alert, oriented 3. Pleasant, well groomed, interactive, spitting into bag. HEAD: Normocephalic, atraumatic ENT: Mucous membranes moist, oropharynx unremarkable, External ear exam unremarkable EYES: PERRL, EOMI NECK: Full ROM, no ZIYAD, no menigismus CHEST/RESP: Nontender, clear to auscultation bilateral, no wheeze/rhonchi/rales CARDIOVASCULAR: RRR, no murmur, rub neelam. 2+ Rad pulse bilateral ABDOMEN: Soft, nontender, no mass. +Bowel sounds EXT: Full ROM, no edema, no rash Neuro: Grossly normal neurologic exam, conversant, interactive. Psych: Speech fluent, thoughts congruent, affect normal Course Vital Signs Vital signs: Vital Signs Temperature 36.7 C 07/06/19 15:54 Pulse 85 07/06/19 15:54 Respiratory Rate 18 07/06/19 15:54 Blood Pressure 124/79 07/06/19 15:54 Pulse Oximetry 93 L 07/06/19 15:54 Temperature 36.7 C 07/06/19 15:54 Temperature Source Skin 07/06/19 15:54 Pulse 85 07/06/19 15:54 Respiratory Rate 18 07/06/19 15:54 Blood Pressure 124/79 07/06/19 15:54 Blood Pressure Position Sitting 07/06/19 15:54 Pulse Oximetry 93 L 07/06/19 15:54 Oxygen Delivery Method Room Air 07/06/19 15:54 Oxygen Flow Rate 0 07/06/19 15:54 Pain Level 10 07/06/19 15:54
--- NOTE | 2019-07-06 16:28 | W.SURGCON ---
Date of service: 07/06/19 Time of Service: 16:29 Assessment and Plan Assessment and plan (1) Esophageal foreign body: Status: Acute Assessment and plan: A\\ Esophageal food impaction P\\ EGD under general Risks, benefits and complications have been reviewed. Complications include but are not limited to bleeding, pain, perforation, aspiration and adverse reaction to the medications. Questions were entertained and answered to his satisfaction and they wished to proceed. No guarantees were given or implied. Qualifiers: Encounter type: initial encounter Qualified Code(s): T18.108A - Unspecified foreign body in esophagus causing other injury, initial encounter History of Present Illness Narrative: Mr. Story is a 58 year old male well known to me who came to the ER after getting food stuck in his throat again. He has been seen multiple times and has chronic esophagitis. He is on Omeprazole 40 mg BID and Carafate 1 gm QID. He was given a fizzy tab in the ER but it did not work unfortunately. He is still unable to swallow. He tells me that he ate shredded beef and carrotts and that he ate too fast again. He denies any chest pain or shortness of breath. Review of Systems Constitutional Constitutional: Denies fever(s) Eyes Eyes: Denies change in vision Cardiovascular Cardiovascular: Denies chest pain, Denies irregular heart rhythm, Denies palpitations and Denies dyspnea Respiratory Respiratory: Denies cough and Denies dyspnea Gastrointestinal Gastrointestinal: Reports as per HPI Genitourinary Genitourinary: Denies hematuria and Denies dysuria Endocrine Endocrine: Denies palpitations [facility] Medical History COPD (chronic obstructive pulmonary disease) GERD (gastroesophageal reflux disease) Hyperlipidemia Impaired fasting glucose Schizophrenia Surgical History EGD - MAC (03/13/17) EGD - MAC (09/25/17) EGD - MAC (02/12/18) History of colonoscopy (Chronic) History of esophagogastroduodenoscopy (EGD) (Chronic) 05/20/19 Dr Elizabeth Jackson, [facility], If the biopsies do not show eosinophilic esophagitis, then he may be a candidate for Giovanni procedure to reduce the degree of inflammation. Social History Smoking/Tobacco Use Status: Former Tobacco Use Alcohol Intake: current Alcohol Intake frequency: a few times a week Alcohol type: beer Drug use: Never Substance use type: does not use Do you feel safe at home: Yes Do you feel safe in your relationship?: Yes Exam Const General: cooperative, comfortable and no acute distress Orientation: alert and oriented x3 HENMT Head: normocephalic and atraumatic Resp Effort & Inspection: normal respiratory effort Auscultation: clear to auscultation bilaterally Cardio Rate: regular rate Rhythm: regular rhythm Heart Sounds: no gallops, no murmurs and no rubs GI Inspection: normal to inspection Palpation: soft and nontender Results Last Vital Signs Temp 98.1 F 07/06/19 15:54 Pulse 85 07/06/19 15:54 Resp 18 07/06/19 15:54 BP 124/79 07/06/19 15:54 Pulse Ox 93 L 07/06/19 15:54
[2019-07-06] MEDS: Lactated Ringers 1,000 ML 30 ML IV (18:50)
--- NOTE | 2019-07-06 19:14 | DSE_ITS ---
Date of service: 07/06/19 Time of Service: 19:15 DS: Diagnosis Discharge Diagnosis (1) Esophageal foreign body: Status: Acute Discharge Plan Disposition Patient Disposition: HOME Condition: Stable Discharge Details Chief Complaint: ThroatFB Clinical Impression: Esophageal foreign body Reason For Visit: esophageal foreign body Attending Provider: Sonya Hodges Primary Care Provider: Elva Christian ED Provider: Brody Khalil Home Meds and New Rx's Prescriptions: No Action hydroxyzine HCl 25 mg tablet 25 mg PO QID RF: 0 sucralfate [Carafate] 1 GM tablet 1 g PO QID Qty: 28 RF: 3 sertraline 100 MG tablet 200 mg PO DAILY RF: 0 simvastatin 80 MG tablet 80 mg PO HS RF: 0 topiramate [Topamax] 100 MG tablet 100 mg PO BID RF: 0 buspirone 15 MG tablet 30 mg PO BID RF: 0 quetiapine [Seroquel] 400 mg tablet 800 mg PO HS RF: 0 naltrexone 50 mg tablet 100 mg PO DAILY RF: 0 omeprazole 40 MG capsule,delayed release(DR/EC) 40 mg PO BID Qty: 60 RF: 1 Vraylar 6 mg Capsule 6 mg PO DAILY RF: 0 Discharge Orders Discharge Orders: Discharge Order (Routine); Ordered 07/06/19 Ordered By: Sonya Hodges DS: Data Vitals/I&O Vitals and I&O: Vital Signs Temperature 98.1 F 07/06/19 17:08 Temperature Source Temporal Artery Scan 07/06/19 17:08 Pulse 90 07/06/19 18:03 Respiratory Rate 18 07/06/19 17:08 Respiratory Effort 07/06/19 16:13 Respiratory Pattern Normal 07/06/19 16:13 Blood Pressure 136/77 07/06/19 18:03 Blood Pressure Position Sitting 07/06/19 15:54 Pulse Oximetry 96 07/06/19 18:03 Oxygen Delivery Method Room Air 07/06/19 18:03 Oxygen Flow Rate 0 07/06/19 18:03 Pain Level 10 07/06/19 15:54 Intake & Output 07/05/19 07/06/19 07/06/19 23:59 11:59 23:59 Intake Total 310 / 310 Balance 310 / 310 Weight 175 lb 0.012 oz Intake: IV 310 / 310 [facility] Medical History COPD (chronic obstructive pulmonary disease) GERD (gastroesophageal reflux disease) Hyperlipidemia Impaired fasting glucose Schizophrenia Surgical History EGD - MAC (03/13/17) EGD - MAC (09/25/17) EGD - MAC (02/12/18) History of colonoscopy (Chronic) History of esophagogastroduodenoscopy (EGD) (Chronic) 05/20/19 Dr Elizabeth Jackson, [facility], If the biopsies do not show eosinophilic esophagitis, then he may be a candidate for Giovanni procedure to reduce the degree of inflammation. Social History Smoking/Tobacco Use Status: Former Tobacco Use Alcohol Intake: current Alcohol Intake frequency: a few times a week Alcohol type: beer Drug use: Never Substance use type: does not use Do you feel safe at home: Yes Do you feel safe in your relationship?: Yes
--- NOTE | 2019-07-06 19:21 | W.PM.DSUDISC ---
Discharge Plan Disposition Patient Disposition: HOME Condition: Stable Discharge Details Chief Complaint: ThroatFB Clinical Impression: Esophageal foreign body Reason For Visit: esophageal foreign body Attending Provider: Sonya Hodges Primary Care Provider: Elva Christian ED Provider: Brody Khalil Home Meds and New Rx's Prescriptions: Continued hydroxyzine HCl 25 mg tablet 25 mg PO QID RF: 0 sucralfate [Carafate] 1 GM tablet 1 g PO QID Qty: 28 RF: 3 sertraline 100 MG tablet 200 mg PO DAILY RF: 0 simvastatin 80 MG tablet 80 mg PO HS RF: 0 topiramate [Topamax] 100 MG tablet 100 mg PO BID RF: 0 buspirone 15 MG tablet 30 mg PO BID RF: 0 quetiapine [Seroquel] 400 mg tablet 800 mg PO HS RF: 0 naltrexone 50 mg tablet 100 mg PO DAILY RF: 0 omeprazole 40 MG capsule,delayed release(DR/EC) 40 mg PO BID Qty: 60 RF: 1 Vraylar 6 mg Capsule 6 mg PO DAILY RF: 0 Discharge Instructions Additional Instructions: Diet: Please stay on a clear liquid diet for the next 12 hours then advance to soft, pureed diet for 24 hours. Please eat slowly and chew your food properly so this doesn't happen again. Follow up: as needed Please call if you develop: fevers >101.5 Nausea or Vomiting Abdominal pain that is not transient DAY SURGERY UNIT POST ENDOSCOPY INSTRUCTIONS 1. Because there will be medication in your system for the next 24 hours, you may feel a little sleepy. Your coordination will be affected. Therefore: a. Do not drive or operate dangerous equipment for 24 hours. b. Do not drink alcohol beverages for 24 hours (not even beer). c. Plan to go home and rest for the day. 2. Generally there are no restrictions on your activity after a day or so has gone by, but you may feel a bit fatigued for a few days. 3 After you arrive home you may have a light meal and return to a normal diet as you can tolerate it without feeling sick to your stomach. 4. After surgery, you may feel pain or discomfort. This should be only transient, but if it persists please contact your doctor. 5. If there are any questions regarding the findings of your procedure, please feel free to contact your doctor. 6. If you are unable to contact your doctor with a problem, contact the hospital at [phone]. 3. Continue all your regular medications unless directed otherwise. I understand the above instructions and have no questions. Signature of Patient or Responsible Adult Escort Date/Time Name of Responsible Adult Escort Signature of Nurse Date/Time Activity:: Activity as Tolerated Diet:: clear liquid diet for 12 hours Discharge Orders Discharge Orders: Discharge Order (Routine); Ordered 07/06/19 Ordered By: Sonya Hodges DS: Diagnosis Discharge Diagnosis (1) Esophageal foreign body: Status: Acute
--- NOTE | 2019-07-08 06:50 | W.PM.ENDDOP ---
Date of service: 07/06/19 Time of Service: 18:57 Endoscopy Report DATE OF PROCEDURE: 07/06/19 PRE-OP DIAGNOSIS: Esophageal foreign body POST-OP DIAGNOSIS: same PROCEDURE: EGD with removal of foreign body SURGEON: Sonya Hodges ANESTHESIA: GETA (ASA 2/ Ariella Yeung, SAVANAH) ESTIMATED BLOOD LOSS: 2 PATHOLOGY: none sent COMPLICATIONS: None DISPOSITION: PACU INDICATIONS: Mr. Story is a 58-year-old gentleman well-known to me. He has chronic esophageal inflammation on omeprazole 40 mg twice daily and Carafate 4 times daily. He comes into the emergency department again today having eaten too fast and got some meat stuck in his esophagus again. Unfortunately Mr. Story comes to the emergency department with this problem about every couple of months. Feels a tablets were tried by the emergency department but unfortunately does did not dislodge the food bolus. Risks benefits and complications of an EGD were reviewed with him and he wished to proceed. No guarantees were given or implied. PROCEDURE START TIME: 18:56 FINDINGS: Large piece of shredded meat found midesophagus. As in previous EGDs there is extensive inflammation going up to the mid esophagus. No masses were identified. PROCEDURE DESCRIPTION: After informed consent was obtained the patient was take to the operating room and placed in a supine position. Monitors were applied and a time out was done. The patients name, date of , procedure type, allergies to medications and metal in their body was reviewed. The patient was placed under general anesthesia and intubated without difficulty. Once the ET tube was secured the gastroscope was advanced through the oropharynx which was grossly normal into the esophagus. The proximal esophagus was normal. In the mid esophagus or large piece of shredded beef was identified. The surrounding bhagat were erythematous and there was slight bleeding. The EGD was then used to slowly and carefully push the food down which went pretty easily into the stomach. Once the food bolus was back in the stomach the esophagus was quickly inspected. No ulcerations or masses were noted. There was some swelling and inflammation and therefore no biopsies were done at this time. Patient's had previous EGDs with biopsies. The last one was recent. The scope was removed and the patient was woken up extubated and taken back to recovery in stable condition. There were no immediate complications. Follow up: Patient is to follow-up on an as-needed basis. I recommended to the patient to be on clear liquids for the next 24 hours to allow the edema and irritation to calm down a little bit. I then further recommended that the patient should have soft diet from now on. He should either pur?ed the meat or not have any meat at all as this is what keeps getting stuck in his esophagus. As recommended before he may be a candidate for a Giovanni fundoplication but he would need manometry and pH studies done prior to this. If the patient is interested in this I would recommend referral to general surgery done at [facility] who does Niss[place].
== END 2019-07-06 23:00 | disposition home or self-care (01) ==
LOC: ER 17:03 → DSU 18:45
PROVIDERS: Emergency Provider Emergency Medicine; PCP Family Medicine; Visit Provider Surgery
PROC: 0DC68ZZ Extirpation of Matter from Stomach, Via Natural or Artificial Opening Endoscopic (ICD-10-PCS; CPT 43247; principal; 2019-07-06 16:55)
DX: T18.128A Food in esophagus causing other injury, initial encounter (principal); K22.2 Esophageal obstruction; J44.9 Chronic obstructive pulmonary disease, unspecified; K21.0 Gastro-esophageal reflux disease with esophagitis; F20.9 Schizophrenia, unspecified; Z87.891 Personal history of nicotine dependence
CPT/HCPCS: 43247; 36415; 99214; 99253; 99285; 99284; J1100; J2405

== ENCOUNTER 2019-07-20 02:05 | Emergency (ER) | payer MEDICARE, MEDICAID, SELFPAY ==
[2019-07-20 02:10] VITALS: BP 139/79; PULSE 91; RESP 18; TEMP 37; O2SAT 96
--- NOTE | 2019-07-20 02:17 | W.ED.GENAD ---
Discharge Plan Disposition Patient Disposition: HOME Condition: Good Discharge Details Chief Complaint: ThroatFB Clinical Impression: Esophageal foreign body Primary Care Provider: Elva Christian ED Provider: Sohan Rushing Meds and New Rx's Prescriptions: Continued hydroxyzine HCl 25 mg tablet 25 mg PO QID RF: 0 sucralfate [Carafate] 1 GM tablet 1 g PO QID Qty: 28 RF: 3 sertraline 100 MG tablet 200 mg PO DAILY RF: 0 simvastatin 80 MG tablet 80 mg PO HS RF: 0 topiramate [Topamax] 100 MG tablet 100 mg PO BID RF: 0 buspirone 15 MG tablet 30 mg PO BID RF: 0 quetiapine [Seroquel] 400 mg tablet 800 mg PO HS RF: 0 naltrexone 50 mg tablet 100 mg PO DAILY RF: 0 omeprazole 40 MG capsule,delayed release(DR/EC) 40 mg PO BID Qty: 60 RF: 1 Vraylar 6 mg Capsule 6 mg PO DAILY RF: 0 Discharge Instructions Additional Instructions: Liquid/bland diet today. Continue sucralfate and omeprazole. Do not eat meat in the future. Follow-up with surgery who are considering referring you to [facility] for evaluation there to see if anything can help prevent this in the future. Return to ED if problems. Referrals: Elizabeth Jackson MD [ [facility] STAFF PHYSICIAN] - Medical Decision Making Patient with esophageal foreign body with history of same. Have tried the effervescent without success. Will place IV and try glucagon but I suspect it is too high up and will not work. Will likely need to have surgery come in once again. 3AM - Has not passed the meat bolus. Discussed with surgery. Will plan on OR first thing in morning. Patient aware. 06:15 - Patient reports that he is able to swallow now without issue. Dr. Jackson here and will cancel OR. Patient discharged, refer to surgery who will plan on referral to [facility] as this continues to be a problem. Medical Records Medical records reviewed: Yes I reviewed the patient's medical records. HPI General Mode of arrival: ambulatory. Date/Time Provider Initiated Documentation: 07/20/19 02:15. Limitations to Documentation: no limitations. Information obtained by: patient and old records reviewed. HPI Narrative: Patient presents to ED with esophageal foreign body. Patient has history of same. In fact he was just here on the . Patient reports eating roast beef tonight. He has had foreign body sensation and inability to swallow secretions since midnight. He is not having difficulty breathing. He presents now as he is not been able to get the foreign body to pass or come up. Related Data Home Medications Medication Instructions Recorded Confirmed buspirone 30 mg PO BID 09/06/15 07/20/19 sertraline 200 mg PO DAILY 09/06/15 07/20/19 simvastatin 80 mg PO HS 09/06/15 07/20/19 topiramate [Topamax] 100 mg PO BID 09/06/15 07/20/19 sucralfate [Carafate] 1 g PO QID #28 tab-cap 04/02/17 07/20/19 omeprazole 40 mg PO BID #60 capsule. 02/12/18 07/20/19 hydroxyzine HCl 25 mg tablet 25 mg PO QID 02/25/19 07/20/19 naltrexone 50 mg tablet 100 mg PO DAILY tab 02/25/19 07/20/19 quetiapine 400 mg tablet 800 mg PO HS tab 02/25/19 07/20/19 Vraylar 6 mg PO DAILY 03/31/19 07/20/19 Previous Rx's Medication Instructions Recorded omeprazole 40 mg PO BID #60 capsule. 02/12/18 Allergies Allergy/AdvReac Type Severity Reaction Status Date / Time No Known Allergies Allergy Verified 07/20/19 02:13 General Stated Complaint: ThroatFB GENEVIEVE: 3 Review of Systems Narrative: As documented in HPI otherwise negative as below. Const: no fever, chills, weakness Resp: no cough, SOB, pleuritic pain CV: no CP, diaphoresis, edema, syncope GI: no abdominal pain, nausea, vomiting, diarrhea Neuro: no headache, numbness, focal weakness, confusion PFSH Medical History COPD (chronic obstructive pulmonary disease) GERD (gastroesophageal reflux disease) Hyperlipidemia Impaired fasting glucose Schizophrenia Surgical History EGD - MAC (03/13/17) EGD - MAC (09/25/17) EGD - MAC (02/12/18) History of colonoscopy (Chronic) History of esophagogastroduodenoscopy (EGD) (Chronic) 05/20/19 Dr Elizabeth Jackson, [facility], If the biopsies do not show eosinophilic esophagitis, then he may be a candidate for Giovanni procedure to reduce the degree of inflammation. Social History Smoking/Tobacco Use Status: Former Tobacco Use Alcohol Intake: current Alcohol Intake frequency: a few times a week Alcohol type: beer Drug use: Never Substance use type: does not use Do you feel safe at home: Yes Do you feel safe in your relationship?: Yes Exam Narrative Exam Narrative: Vitals: Afebrile. Normal vitals and pulse oximetry on room air. Const: WDWN male in NAD. HEENT: NC/AT. Normal facial exam. Secretions pooling. Eyes: Normal conjunctiva and sclera. Neck: Supple. Trachea midline. Lungs: Normal respiratory effort. Lungs are clear. Cor: RRR without murmur/gallop. Good radial pulses. Neuro: A+O x 3. CN grossly in tact. Good strength and no focal deficit. Course Vital Signs Vital signs: Vital Signs Temperature 98.6 F 07/20/19 02:10 Pulse 91 H 07/20/19 02:10 Respiratory Rate 18 07/20/19 02:10 Blood Pressure 139/79 07/20/19 02:10 Pulse Oximetry 96 07/20/19 02:10 Temperature 98.6 F 07/20/19 02:10 Temperature Source Tympanic 07/20/19 02:10 Pulse 91 H 07/20/19 02:10 Respiratory Rate 18 07/20/19 02:10 Respiratory Effort Non-Labored 07/20/19 02:14 Blood Pressure 139/79 07/20/19 02:10 Pulse Oximetry 96 07/20/19 02:10 Oxygen Delivery Method Room Air 07/20/19 02:10 Oxygen Flow Rate 0 07/20/19 02:10 Pain Level 9 07/20/19 02:10
[2019-07-20] MEDS: Simethicone/Sod Bicarb/Cit Ac, 4 gram PACKET 1 PACKET PO (02:40)
[2019-07-20] MEDS: Lactated Ringers 1,000 ML 150 ML IV (02:49)
--- NOTE | 2019-07-20 04:50 | NUR.NOTE ---
Nursing Note: Pt requesting pain medication for pain 06/30, notified.
[2019-07-20] MEDS: ACETAMINOPHEN 1,000 MG/100 ML BTL 400 MG IVPB (05:06)
[2019-07-20 05:37] VITALS: BP 133/82; PULSE 82; RESP 18; O2SAT 99
[2019-07-20 06:29] VITALS: BP 133/82; PULSE 82; RESP 18; TEMP 37; O2SAT 99
== END 2019-07-20 06:30 | disposition home or self-care (01) ==
PROVIDERS: Emergency Provider Emergency Medicine; PCP Family Medicine
DX: T17.228A Food in pharynx causing other injury, initial encounter (principal); R73.01 Impaired fasting glucose
CPT/HCPCS: 36416; 82962; 96361; 96374; 99284; J0131; J1610

== ENCOUNTER → 2019-07-25 13:51 | Outpatient (BNVA) | payer MEDICARE, MEDICAID, SELFPAY | PROVIDERS: PCP Family Medicine; Referring Provider Family Medicine; Visit Provider Surgery | DX: K20.9 Esophagitis, unspecified (principal) | CPT/HCPCS: 99212; 99213 ==

== ENCOUNTER 2019-09-05 18:30 | Emergency (ER) | payer MEDICARE, MEDICAID, SELFPAY ==
[2019-09-05 18:34] VITALS: BP 129/69; PULSE 86; RESP 16; TEMP 36.3; O2SAT 98
--- NOTE | 2019-09-05 18:39 | W.ED.GENAD ---
Discharge Plan Disposition Patient Disposition: HOME Condition: Stable Discharge Details Chief Complaint: ThroatFB Clinical Impression: Esophageal foreign body Primary Care Provider: Elva Christian ED Provider: Brody Khalil Home Meds and New Rx's Prescriptions: Continued hydroxyzine HCl 25 mg tablet 25 mg PO QID RF: 0 sucralfate [Carafate] 1 GM tablet 1 g PO QID Qty: 28 RF: 3 sertraline 100 MG tablet 200 mg PO DAILY RF: 0 simvastatin 80 MG tablet 80 mg PO HS RF: 0 topiramate [Topamax] 100 MG tablet 100 mg PO BID RF: 0 buspirone 15 MG tablet 30 mg PO BID RF: 0 quetiapine [Seroquel] 400 mg tablet 800 mg PO HS RF: 0 naltrexone 50 mg tablet 100 mg PO DAILY RF: 0 omeprazole 40 MG capsule,delayed release(DR/EC) 40 mg PO BID Qty: 60 RF: 1 Vraylar 6 mg Capsule 6 mg PO DAILY RF: 0 Discharge Instructions Additional Instructions: Home to rest. Soft diet. Continue your regularly prescribed medications. Please pur?e your meat, or avoid meat in the diet. Return for any acute concerns. Medical Decision Making 58-year-old male with chronic NSAID relatively severe GERD with a history of frequent food impactions. Presents with upper esophageal sensation of obstruction and inability to swallow secretions after eating pork. He was given 2 administrations of glucagon as well as effervescent bubbles x2 with no initial improvement. Patient rested and subsequently was able to feel the meat impaction pass and take liquids without difficulty. I had discussed the case with Dr. Jackson who admonished as the patient to avoid eating meat. He will continue his prescribed medications. HPI General Mode of arrival: ambulatory. Date/Time Provider Initiated Documentation: 09/05/19 18:30. Limitations to Documentation: no limitations. Information obtained by: patient. History of Present Illness 58 year old M presents to the emergency department with the chief complaint of Recurrent food impaction, described as similar to prior episodes, Quality is described as dull and constant, and is localized to the neck. Patient reports no radiation. Patient started experiencing this minute(s) and it has been constant. No relieving factors improve symptom(s), No exacerbating factors reported . Patient did receive the following treatments prior to arrival, none Related Data Home Medications Medication Instructions Recorded Confirmed buspirone 30 mg PO BID 09/06/15 09/05/19 sertraline 200 mg PO DAILY 09/06/15 09/05/19 simvastatin 80 mg PO HS 09/06/15 09/05/19 topiramate [Topamax] 100 mg PO BID 09/06/15 09/05/19 sucralfate [Carafate] 1 g PO QID #28 tab-cap 04/02/17 09/05/19 omeprazole 40 mg PO BID #60 capsule. 02/12/18 09/05/19 hydroxyzine HCl 25 mg tablet 25 mg PO QID 02/25/19 09/05/19 naltrexone 50 mg tablet 100 mg PO DAILY tab 02/25/19 09/05/19 quetiapine 400 mg tablet 800 mg PO HS tab 02/25/19 09/05/19 Vraylar 6 mg PO DAILY 03/31/19 09/05/19 Previous Rx's Medication Instructions Recorded omeprazole 40 mg PO BID #60 capsule. 02/12/18 Allergies Allergy/AdvReac Type Severity Reaction Status Date / Time No Known Allergies Allergy Verified 09/05/19 18:36 General Stated Complaint: ThroatFB GENEVIEVE: 3 Review of Systems Narrative: 6 systems reviewed and otherwise negative. No chest pain or difficulty breathing. [facility] Medical History COPD (chronic obstructive pulmonary disease) GERD (gastroesophageal reflux disease) Hyperlipidemia Impaired fasting glucose Schizophrenia Social History Smoking/Tobacco Use Status: Former Tobacco Use Alcohol Intake: current Alcohol Intake frequency: a few times a week Alcohol type: beer Drug use: Never Substance use type: does not use Do you feel safe at home: Yes Do you feel safe in your relationship?: Yes Exam Narrative Exam Narrative: 58-year-old male with a history of recurrent meat impactions, chronic gastritis, for which she is been evaluated numerous times and surgery has most recently question referral for Giovanni fundoplication. He ate pork chops tonight and felt food become recurrently impacted in his upper throat. Course Vital Signs Vital signs: Vital Signs Temperature 36.3 C L 09/05/19 18:34 Pulse 86 09/05/19 18:34 Respiratory Rate 16 09/05/19 18:34 Blood Pressure 129/69 09/05/19 18:34 Pulse Oximetry 98 09/05/19 18:34 Temperature 36.3 C L 09/05/19 18:34 Pulse 86 09/05/19 18:34 Respiratory Rate 16 09/05/19 18:34 Blood Pressure 129/69 09/05/19 18:34 Blood Pressure Position Sitting 09/05/19 18:34 Pulse Oximetry 98 09/05/19 18:34 Oxygen Delivery Method Room Air 09/05/19 18:34 Oxygen Flow Rate 0 09/05/19 18:34 Pain Level 10 09/05/19 18:34
[2019-09-05] MEDS: Simethicone/Sod Bicarb/Cit Ac, 4 gram PACKET 1 PACKET PO ×2 (20:16→20:21)
--- NOTE | 2019-09-05 20:17 | NUR.NOTE ---
Nursing Note:191 Report received from Raeann HA regarding patient and previous treatment. Pt sitting up right in bed of rm 2 in ED. Pt has emesis bag where he is spitting up mostly saliva and a few pink pill fragments from a previous dose of simethicone he was given earlier. Pt reports that he's not feeling any change in symptoms. Pt to have effervescent granules to see if FB will come up or continue going down pts esophagus. Pt tolerating procedures well, and maintaining calm attitude toward his stay in ED. Apparently, this has occurred several times before. Will continue to monitor pts status.
--- NOTE | 2019-09-05 20:24 | NUR.NOTE ---
Nursing Note: At this time, patient has been given an additional dose of glucagon 1mg IV and a second dose of effervescent capsules to aid in loosening the FB. Pt's vitals remain stable and patient tolerating spitting up saliva as best he can. No other needs at this time.
[2019-09-06 00:33] VITALS: BP 155/67; PULSE 74; RESP 16; TEMP 36.8; O2SAT 99
== END 2019-09-05 20:41 | disposition home or self-care (01) ==
PROVIDERS: Emergency Provider Emergency Medicine; PCP Family Medicine
DX: T18.128A Food in esophagus causing other injury, initial encounter (principal); K22.2 Esophageal obstruction; K21.9 Gastro-esophageal reflux disease without esophagitis; J44.9 Chronic obstructive pulmonary disease, unspecified; Z87.891 Personal history of nicotine dependence
CPT/HCPCS: 96374; 96376; 99284; 99283; J1610

== ENCOUNTER 2020-01-29 20:14 | Emergency (ER) | payer MEDICARE, MEDICAID, SELFPAY ==
[2020-01-29 20:20] VITALS: BP 135/73; PULSE 87; RESP 16; TEMP 36.1; O2SAT 96
--- NOTE | 2020-01-29 20:21 | ED.GENADUL_ITS ---
Discharge Plan Disposition Patient Disposition: HOME Condition: Good Discharge Details Chief Complaint: ThroatFB Clinical Impression: Esophageal foreign body Primary Care Provider: Elva Christian ED Provider: Isaias Ruiz Home Meds and New Rx's Prescriptions: Continued hydroxyzine HCl 25 mg tablet 25 mg PO QID RF: 0 sucralfate [Carafate] 1 GM tablet 1 g PO QID Qty: 28 RF: 3 sertraline 100 MG tablet 200 mg PO DAILY RF: 0 simvastatin 80 MG tablet 80 mg PO HS RF: 0 topiramate [Topamax] 100 MG tablet 100 mg PO BID RF: 0 buspirone 15 MG tablet 30 mg PO BID RF: 0 quetiapine [Seroquel] 400 mg tablet 800 mg PO HS RF: 0 naltrexone 50 mg tablet 100 mg PO DAILY RF: 0 omeprazole 40 MG capsule,delayed release(DR/EC) 40 mg PO BID Qty: 60 RF: 1 Vraylar 6 mg Capsule 6 mg PO DAILY RF: 0 Discharge Instructions Instructions: Food Impaction (ED) Additional Instructions: Your food impaction has passed. Make sure to take small bites as much as possible. Drink plenty of fluids. Do not hesitate to contact me this evening if you have any return of your symptoms. If you notice any worsening of your symptoms, or any new symptoms such as vomiting, diarrhea, fever, chills, shortness of breath, chest pain, numbness, weakness, or fainting , please return immediately to the emergency department for reevaluation. Please follow up with your primary care provider as soon as possible for reassessment and reevaluation. As always, it was a pleasure participating in your medical care today. Referrals: Elva Christian [Primary Care Provider] - Medical Decision Making Pleasant 59-year-old male with a past medical history of multiple foreign bodies in his esophagus presents for suspicion of this. Patient states that 1 hour ago he was eating some steak when he took his first bite, thought he chewed it thoroughly, but then felt that it got stuck. He has been suffering with it for the last hour and then while he was sitting in the waiting room he felt that it passed. Currently he denies any pain difficulty controlling his secretions chest pain shortness of breath or other complaints. He feels much better at this time. Exam is notably benign, he tolerated p.o. fluids extremely well here, he tolerated food well without complication. Signs and symptoms are clinically consistent with passed foreign body. Recommend close follow-up, thorough chewing, and avoidance of large meat boluses. I have extensively reviewed the treatment plan and discharge instructions with the patient. I have addressed all patient concerns at this time. The patient was made aware of what symptoms to monitor for that would warrant a return to the emergency department. Discussed the plan with the patient, they demonstrate verbal understanding and agreement with our assessment and plan at this time. HPI General Date/Time Provider Initiated Documentation: 01/29/20 20:15 . HPI Narrative: Pleasant 59-year-old male with a past medical history of multiple foreign bodies in his esophagus presents for suspicion of this. Patient states that 1 hour ago he was eating some steak when he took his first bite, thought he chewed it thoroughly, but then felt that it got stuck. He has been suffering with it for the last hour and then while he was sitting in the waiting room he felt that it passed. Currently he denies any pain difficulty controlling his secretions chest pain shortness of breath or other complaints. He feels much better at this time. He denies fever chills vomiting diarrhea chest pain numbness tingling weakness vision changes or headache. Related Data Home Medications Medication Instructions Recorded Confirmed buspirone 30 mg PO BID 09/06/15 01/29/20 sertraline 200 mg PO DAILY 09/06/15 01/29/20 simvastatin 80 mg PO HS 09/06/15 01/29/20 topiramate [Topamax] 100 mg PO BID 09/06/15 01/29/20 sucralfate [Carafate] 1 g PO QID #28 tab-cap 04/02/17 01/29/20 omeprazole 40 mg PO BID #60 capsule. 02/12/18 01/29/20 hydroxyzine HCl 25 mg tablet 25 mg PO QID 02/25/19 01/29/20 naltrexone 50 mg tablet 100 mg PO DAILY tab 02/25/19 01/29/20 quetiapine 400 mg tablet 800 mg PO HS tab 02/25/19 01/29/20 Vraylar 6 mg PO DAILY 03/31/19 01/29/20 Previous Rx's Medication Instructions Recorded omeprazole 40 mg PO BID #60 capsule. 02/12/18 Allergies Allergy/AdvReac Type Severity Reaction Status Date / Time No Known Allergies Allergy Verified 01/29/20 20:23 General GENEVIEVE: 3 Review of Systems All systems reviewed & are unremarkable except as noted in HPI and below PFSH Medical History COPD (chronic obstructive pulmonary disease) GERD (gastroesophageal reflux disease) Hyperlipidemia Impaired fasting glucose Schizophrenia Social History Smoking/Tobacco Use Status: Former Tobacco Use Alcohol Intake: current Alcohol Intake frequency: a few times a week Alcohol type: beer Drug use: Never Substance use type: does not use Do you feel safe at home: Yes Do you feel safe in your relationship?: Yes Exam Narrative Exam Narrative: 1.Const: Well-nourished, Well-developed, appearing stated age 2.Eyes: PERRL, no conjunctival injection, and symmetrical lids. 3.ENT: Atraumatic external nose and ears. Moist MM. Neck: Symmetric, trachea midline, No thyromegaly. No difficulty controlling secretions whatsoever. 4.CVS: +S1/S2, No murmurs or gallops. Peripheral pulses 2+ and equal in all extremities. Brisk capillary refill in all extremities. 5.RESP: Unlabored respiratory effort. Clear to auscultation bilaterally. No wheezes rales or rhonchi 6.GI: Soft, Nontender/Nondistended, No hepatosplenomegaly. No guarding or rebound. 7.MSK: Normocephalic/Atraumatic, Extremities w/o deformity or ttp No cyanosis or clubbing, Normal movement of all extremities 8.Skin: Warm, Dry. No rashes or lesions. 9.Neuro: cryptographic vulnerability analyst II-XII grossly intact. Sensation grossly intact, no focal neurologic deficits. 10.Psych: (AAO) x3. Appropriate mood and affect
== END 2020-01-29 20:25 | disposition home or self-care (01) ==
LOC: ER 22:45
PROVIDERS: Emergency Provider Student in an Organized Health Care Education/Training Program; PCP Family Medicine
DX: T18.128A Food in esophagus causing other injury, initial encounter (principal); K22.2 Esophageal obstruction; J44.9 Chronic obstructive pulmonary disease, unspecified; Z87.891 Personal history of nicotine dependence
CPT/HCPCS: 99282

== ENCOUNTER 2020-03-19 11:46 | Day surgery (SDC) | payer MEDICARE, MEDICAID, SELFPAY ==
[2020-03-19] VITALS (31 sets, daily range): BP systolic 107–149; BP diastolic 61–91; PULSE 68–88; RESP 18; TEMP 36.4–37; O2SAT 96–99
[2020-03-19] MEDS: Glucagon 1 MG VIAL IVP ×2 (12:13→13:09)
--- NOTE | 2020-03-19 12:35 | DI.RAD_ITS ---
EXAM: XR SOFT TISSUE NECK CLINICAL HISTORY: FB in throat. TECHNIQUE: 2D digital imaging was performed. COMPARISON: No exams were available for comparison FINDINGS: BONES: No acute fracture is present. No bony destructive lesion is seen. JOINTS: No dislocation present. SOFT TISSUE: No definite foreign body is identified. IMPRESSION: No definite foreign body is identified. If there is continued concern, direct visualization should b e considered. Findings were discussed with the emergency department. DATA REPOSITORY: RADIATION DOSE DELIVERED:
--- NOTE | 2020-03-19 12:36 | W.ED.GENAD ---
Discharge Plan Disposition Patient Disposition: [facility] Condition: Stable Discharge Details Chief Complaint: ThroatFB Clinical Impression: Esophageal foreign body Primary Care Provider: Elva Christian ED Provider: Catie Pedraza Home Meds and New Rx's Prescriptions: No Action hydroxyzine HCl 25 mg tablet 25 mg PO QID RF: 0 sucralfate [Carafate] 1 GM tablet 1 g PO QID Qty: 28 RF: 3 sertraline 100 MG tablet 200 mg PO DAILY RF: 0 simvastatin 80 MG tablet 80 mg PO HS RF: 0 topiramate [Topamax] 100 MG tablet 100 mg PO BID RF: 0 buspirone 15 MG tablet 30 mg PO BID RF: 0 quetiapine [Seroquel] 400 mg tablet 800 mg PO HS RF: 0 naltrexone 50 mg tablet 100 mg PO DAILY RF: 0 omeprazole 40 MG capsule,delayed release(DR/EC) 40 mg PO BID Qty: 60 RF: 1 Vraylar 6 mg Capsule 6 mg PO DAILY RF: 0 Medical Decision Making <FEDE Chang - Last Filed: 03/19/20 15:06> This is a 59-year-old patient well-known to the emergency room for food bolus who presents after eating meat which he reports he ate too quickly. Patient presents to the emergency room complaining of sensation of foreign body in his throat, spitting up secretions. Patient did report he attempted seltzer at home without relief. Patient denies difficulty breathing, shortness of breath or wheezing. Patient reports this does seem similar to previous foreign bodies. Initial vital signs are reviewed. Patient denies any blood in his secretions. Patient's medical history includes COPD, GERD, hyperlipidemia, schizophrenia. After initial evaluation IV access ordered, will attempt granular effervescence, as well as glucagon 1mg IV. Patient does report success with this initial management in the past. Patient has required operating room intervention historically. After approximately 30 minutes patient denies any significant improvement of his symptoms. 1300: Called to Dr. Rivers who is familiar with the patient, discussed case. She recommends another trial of glucagon 1 mg IV in addition to another round of effervescence. She will check in around approximately 230 for reevaluation. Reevaluation the patient reveals persistence of symptoms, mild improvement in drooling. Patient reports persistent pain approximately 9 out of 10. Patient provided Toradol IV for pain relief given patient does take naltrexone and has taken 100 mg by mouth this morning. no relief in pain after Toradol. We will plan to provide 500 mL's IV fluid bolus, as well as Ativan and offer med for additional pain control. 1500 - Dr. Jackson arrived to the emergency room to evaluate the patient, discussed with the patient at the bedside. Plans to bring patient to the operating room for food bolus management. <Rosy Bardales DO - Last Filed: 03/19/20 15:40> I have seen and examined this patient. I discussed case and reviewed note with the PA and I agree with plan and note as documented. HPI <FEDE Chang - Last Filed: 03/19/20 15:06> General Date/Time Provider Initiated Documentation: 03/19/20 11:48. HPI Narrative: This is a 59-year-old patient presenting to the emergency room for concern of food bolus. Patient reports he was eating meat 45 minutes prior to arrival specifically [employer] which he reports was cut into small pieces but he ate quickly. Patient reports sensation of food bolus in the right side of his neck. Patient presents to the emergency room drooling. He does report he tried seltzer water prior to arrival unsuccessfully. Patient does describe some discomfort associated. Patient does have a history of several esophageal food boluses historically, many ER evaluations for similar. Most recently 01/29/2020. Patient reports no difficulty breathing or shortness of breath. Patient denies any chest pain. Denies abdominal pain. Patient describes pain in the right anterior neck. Patient does report he has experienced pain with food bolus in the past. Patient denies any headache or dizziness. Patient is able to speak and provide history. Related Data Home Medications Medication Instructions Recorded Confirmed buspirone 30 mg PO BID 09/06/15 03/19/20 sertraline 200 mg PO DAILY 09/06/15 03/19/20 simvastatin 80 mg PO HS 09/06/15 03/19/20 topiramate [Topamax] 100 mg PO BID 09/06/15 03/19/20 sucralfate [Carafate] 1 g PO QID #28 tab-cap 04/02/17 03/19/20 omeprazole 40 mg PO BID #60 capsule. 02/12/18 03/19/20 hydroxyzine HCl 25 mg tablet 25 mg PO QID 02/25/19 03/19/20 naltrexone 50 mg tablet 100 mg PO DAILY tab 02/25/19 03/19/20 quetiapine 400 mg tablet 800 mg PO HS tab 02/25/19 03/19/20 Vraylar 6 mg PO DAILY 03/31/19 03/19/20 Previous Rx's Medication Instructions Recorded omeprazole 40 mg PO BID #60 capsule. 02/12/18 Allergies Allergy/AdvReac Type Severity Reaction Status Date / Time No Known Allergies Allergy Verified 03/19/20 12:14 General Stated Complaint: ThroatFB GENEVIEVE: 2 Review of Systems <FEDE Chang - Last Filed: 03/19/20 15:06> All systems reviewed & are unremarkable except as noted in HPI and below PFSH <FEDE Chang - Last Filed: 03/19/20 15:06> Medical History COPD (chronic obstructive pulmonary disease) GERD (gastroesophageal reflux disease) Hyperlipidemia Impaired fasting glucose Schizophrenia Surgical History EGD - MAC (03/13/17) EGD - MAC (09/25/17) EGD - MAC (02/12/18) History of colonoscopy (Chronic) History of esophagogastroduodenoscopy (EGD) (Chronic) 05/20/19 Dr Elizabeth Jackson, [facility], If the biopsies do not show eosinophilic esophagitis, then he may be a candidate for Giovanni procedure to reduce the degree of inflammation. Social History Smoking/Tobacco Use Status: Former Tobacco Use Alcohol Intake: current Alcohol Intake frequency: a few times a week Alcohol type: beer Drug use: Never Substance use type: does not use Do you feel safe at home: Yes Do you feel safe in your relationship?: Yes Exam <FEDE Chang - Last Filed: 03/19/20 15:06> Narrative Exam Narrative: CONST: Patient is drooling and splinting. Alert and oriented. HENMT: Head nomocephalic, normal to inspection. Atraumatic. Hearing grossly normal. External ear canal no erythema or swelling. TM normal bilaterally. Nose normal to inspection. No rhinnorhea. Normal facial exam. Oral mucosa normal. Tounge normal. Dentition normal. Normal posterior oropharynx. No visible foreign body noted in the posterior oropharynx. Uvula midline. Some gurgling noted. EYES: General normal appearance. Alignment normal. Eyelids normal. Conjunctiva normal. Sclera normal. PERRL. NECK: Normal visual inspection. FROM. No lymphadenopathy. Trachea midline. No Midline tenderness. Nontender to palpation. No subcutaneous emphysema present. CHEST: Normal insepection of the chest. RESP: Normal respiratory effort. Speaking full sentences. No cough. No wheezing. No retractions. Clear to auscaltation. Breath sound equal and present bilaterally. CARDIO: No JVD. Normal PMI. Regular Rate. Regular Rhythm. Normal peripheral pulses. GI: Normal inspection of abdomen. No distension. Soft. Nontender. No rebound. No gaurding. MUSCULOSKELETAL: Normal Gait. FROM of all extremities. Distal neurovascularly intact. Sensation intact distally. SKIN: Normal. Dry. No rashes. NEURO: Alert and awake. Speech clear. PSYCH: Normal affect. Cooperative. Course <FEDE Chang - Last Filed: 03/19/20 15:06> Vital Signs Vital signs: Vital Signs Temperature 36.4 C L 03/19/20 11:50 Pulse 85 03/19/20 11:50 Respiratory Rate 18 03/19/20 11:50 Blood Pressure 149/91 H 03/19/20 11:50 Pulse Oximetry 99 03/19/20 11:50 Temperature 36.4 C L 03/19/20 11:50 Temperature Source Skin 03/19/20 11:50 Pulse 85 03/19/20 11:50 Respiratory Rate 18 03/19/20 11:50 Respiratory Effort 03/19/20 12:15 Blood Pressure 149/91 H 03/19/20 11:50 Pulse Oximetry 99 03/19/20 11:50 Oxygen Delivery Method Room Air 03/19/20 11:50 Oxygen Flow Rate 0 03/19/20 11:50
[2020-03-19] MEDS: Ketorolac 15 MG/ML VIAL IVP (13:05)
--- NOTE | 2020-03-19 13:14 | NUR.NOTE ---
spoke with brother ceasar jackson at [phone] call [address] ride Nursing Note:
[2020-03-19] MEDS: Normal Saline 500 ML IV (14:33)
[2020-03-19] MEDS: LORazepam 2 MG/ML VIAL 1 MG IVP (14:34)
[2020-03-19] MEDS: ACETAMINOPHEN 1,000 MG/100 ML BTL 400 MG IVPB (14:36)
--- NOTE | 2020-03-19 15:31 | HPE_ITS ---
Date of service: 03/19/20 Time of Service: 15:32 Assessment and Plan Assessment and plan (1) Esophageal foreign body: Status: Acute Assessment and plan: I advised EGD with removal of the foreign body. The procedure and risks of perforation with need for surgery and aspiration discussed. He was advised that this will likely happen again due to the disease esophagus if he continues to eat meat. The patient agrees to proceed. Qualifiers: Encounter type: initial encounter Qualified Code(s): T18.108A - Unspecified foreign body in esophagus causing other injury, initial encounter History of Present Illness Narrative: Patient presents with retained esophageal food bolus after eating [employer] this morning. He has been unable to control his secretions. No improvement with glucagon or effervescent granules. He also reports some substernal discomfort. This has happened numerous times in the past and is related to generalized esophageal narrowing from chronic inflammation. He reports that he is taking his antacids. Review of Systems All systems reviewed & are unremarkable except as noted in HPI and below PFS Medical History COPD (chronic obstructive pulmonary disease) GERD (gastroesophageal reflux disease) Hyperlipidemia Impaired fasting glucose Schizophrenia Surgical History EGD - MAC (03/13/17) EGD - MAC (09/25/17) EGD - MAC (02/12/18) History of colonoscopy (Chronic) History of esophagogastroduodenoscopy (EGD) (Chronic) 05/20/19 Dr Elizabeth Jackson, [facility], If the biopsies do not show eosinophilic esophagitis, then he may be a candidate for Giovanni procedure to reduce the degree of inflammation. Social History Smoking/Tobacco Use Status: Former Tobacco Use Alcohol Intake: current Alcohol Intake frequency: a few times a week Alcohol type: beer Drug use: Never Substance use type: does not use Do you feel safe at home: Yes Do you feel safe in your relationship?: Yes Meds Home Medications and Allergies Home Medications Medication Instructions Recorded Confirmed Type buspirone 30 mg PO BID 09/06/15 03/19/20 History sertraline 200 mg PO DAILY 09/06/15 03/19/20 History simvastatin 80 mg PO HS 09/06/15 03/19/20 History topiramate [Topamax] 100 mg PO BID 09/06/15 03/19/20 History sucralfate [Carafate] 1 g PO QID #28 tab-cap 04/02/17 03/19/20 History omeprazole 40 mg PO BID #60 capsule. 02/12/18 03/19/20 Rx hydroxyzine HCl 25 mg tablet 25 mg PO QID 02/25/19 03/19/20 History naltrexone 50 mg tablet 100 mg PO DAILY tab 02/25/19 03/19/20 History quetiapine 400 mg tablet 800 mg PO HS tab 02/25/19 03/19/20 History Vraylar 6 mg PO DAILY 03/31/19 03/19/20 History Allergies Allergy/AdvReac Type Severity Reaction Status Date / Time No Known Allergies Allergy Verified 03/19/20 12:14 Exam Narrative Exam Narrative: Sittin up, spitting into bag Lungs CTA Heart RRR Abdomen soft Results Last Vital Signs Temp 98.2 F 03/19/20 15:11 Pulse 88 03/19/20 15:11 Resp 18 03/19/20 15:11 BP 107/61 03/19/20 15:11 Pulse Ox 98 03/19/20 15:11 COVID-19 Screening In the past 14 days, have you traveled outside of [place]?: NO Had IN PERSON contact w/suspected or confirmed C-19 person: No
[2020-03-19] MEDS: Lactated Ringers 1,000 ML 200 ML IV ×2 (16:44→18:07)
--- NOTE | 2020-03-19 17:14 | W.PM.DSUDISC ---
Discharge Plan Disposition Patient Disposition: HOME Condition: Good Discharge Details Chief Complaint: ThroatFB Clinical Impression: Esophageal foreign body Reason For Visit: Esophageal food bolus Attending Provider: Elizabeth Jackson Primary Care Provider: Elva Christian ED Provider: Catie Pedraza Home Meds and New Rx's Prescriptions: Continued hydroxyzine HCl 25 mg tablet 25 mg PO QID RF: 0 sucralfate [Carafate] 1 GM tablet 1 g PO QID Qty: 28 RF: 3 sertraline 100 MG tablet 200 mg PO DAILY RF: 0 simvastatin 80 MG tablet 80 mg PO HS RF: 0 topiramate [Topamax] 100 MG tablet 100 mg PO BID RF: 0 buspirone 15 MG tablet 30 mg PO BID RF: 0 quetiapine [Seroquel] 400 mg tablet 800 mg PO HS RF: 0 naltrexone 50 mg tablet 100 mg PO DAILY RF: 0 omeprazole 40 MG capsule,delayed release(DR/EC) 40 mg PO BID Qty: 60 RF: 1 Vraylar 6 mg Capsule 6 mg PO DAILY RF: 0 Discharge Instructions Additional Instructions: Findings: The esophagus showed moderate inflammation/narrowing with a piece of food stuck in this region. It was pushed into the stomach. Please call if you develop: fevers >101.5 Nausea or Vomiting Abdominal or chest pain that is not transient DAY SURGERY UNIT POST EGD INSTRUCTIONS 1. Because there will be medication in your system for the next 24 hours, you may feel a little sleepy. Your coordination will be affected. Therefore: a. Do not drive or operate dangerous equipment for 24 hours. b. Do not drink alcohol beverages for 24 hours (not even beer). c. Plan to go home and rest for the day. 2. Generally there are no restrictions on your activity after a day or so has gone by, but you may feel a bit fatigued for a few days. 3 After you arrive home you may have a light meal as you can tolerate it without feeling sick to your stomach. 4. After surgery, you may feel pain or discomfort. This should be only transient, but if it persists please contact your doctor. 5. If there are any questions regarding the findings of your procedure, please feel free to contact your doctor. 6. If you are unable to contact your doctor with a problem, contact the hospital at [phone]. 7. Continue all your regular medications unless directed otherwise. I understand the above instructions and have no questions. Signature of Patient or Responsible Adult Escort Date/Time Name of Responsible Adult Escort Signature of Nurse Date/Time Activity:: Activity as Tolerated Diet:: Keep food soft for 2 days. DO NOT EAT MEAT Discharge Orders Discharge Orders: Discharge Order (Routine); Ordered 03/19/20 Ordered By: Elizabeth Jackson DS: Diagnosis Discharge Diagnosis (1) Esophageal foreign body: Status: Acute (2) Esophagitis: Status: Acute
--- NOTE | 2020-03-19 17:17 | W.PM.ENDDOP ---
Date of service: 03/19/20 Time of Service: 17:17 Endoscopy Report DATE OF PROCEDURE: 03/19/20 PRE-OP DIAGNOSIS: Esophageal foreign body/food bolus POST-OP DIAGNOSIS: same PROCEDURE: EGD with removal of foreign body SURGEON: Elizabeth Jackson ANESTHESIA: GETA DISPOSITION: PACU INDICATIONS: This patient presents with meat stuck in the esophagus since this morning. He is unable to control his secretions. PROCEDURE DESCRIPTION: The patient was placed supine on the operating table and general anesthesia begun. The endoscope was advanced into the esophagus under direct visualization. The meat food bolus was noted in the proximal third of the esophagus. With gentle pressure, the food bolus was advanced down into the stomach. The scope was passed through the stomach and into the duodenum. There was no duodenitis or ulceration noted. The stomach itself was normal including on retroflexed view of the fundus and lesser curvature. The GE junction was inspected and showed no significant stricture, inflammation, masses or Barretts. The scope was slowly withdrawn with moderate inflammation and narrowing present in the upper esophagus. This has been biopsied in the past. The patient tolerated the procedure well and was stable to recovery.
[2020-03-20 01:24] LABS: COVID-19 RT-PCR UVMMC Result Negative (Negative)
== END 2020-03-19 19:15 | disposition home or self-care (01) ==
LOC: ER 15:45 → DSU 16:32 → MS 18:02
PROVIDERS: Physician Assistant; Emergency Provider Physician Assistant; PCP Family Medicine; Visit Provider Surgery
PROC: 0DC68ZZ Extirpation of Matter from Stomach, Via Natural or Artificial Opening Endoscopic (ICD-10-PCS; CPT 43247; principal; 2020-03-19 16:00)
DX: T18.128A Food in esophagus causing other injury, initial encounter (principal); K22.2 Esophageal obstruction; K21.9 Gastro-esophageal reflux disease without esophagitis; J44.9 Chronic obstructive pulmonary disease, unspecified; Z11.59 Encounter for screening for other viral diseases
CPT/HCPCS: 43247; 99214; 99222; U0003; 70360; J0131; J1610; J1885; J2060

== ENCOUNTER 2020-07-13 15:15 | Outpatient (REF) | payer MEDICARE, MEDICAID, SELFPAY ==
[2020-07-13 18:57] LABS: Bilirubin Negative (Negative); Blood Negative (Negative); Clarity Clear (Clear); Glucose Negative (Negative); Ketones Negative (Negative); Leukocyte Esterase Negative (Negative); Nitrite Negative (Negative); Specific Gravity <= 1.005 (1.005-1.025); Urobilinogen 0.2 EU/dL (Up TO 0.2)
[2020-07-13 18:59] LABS: HCT 42.2 % (40.0-50.0); MCH 30.8 pg (27.0-33.0); MCHC 33.2 % (32.0-36.0); MCV 92.7 fL (80-95); MPV 10.4 fL (8.0-11.0); Platelet Count 208 10^3/uL (130-400); RBC 4.55 10^6/uL (4.36-5.78); RDW 13.1 % (11.8-14.1); RDW-SD 44.8 fL; WBC 5.88 10^3/uL (4.4-10.8)
[2020-07-13 19:24] LABS: ALT 38 U/L (16-63); AST 27 U/L (15-37); Albumin 4.1 g/dL (3.4-5.0); Alkaline Phosphatase 69 U/L (46-116); Anion Gap 11.6 mmol/L (3-11); BUN 9 mg/dL (7-18); Bilirubin, Total 0.2 mg/dL (0.2-1.0); CO2 21.4 mmol/L (21.0-32.0); CREATININE 0.81 mg/dL (0.70-1.30); Calcium 8.9 mg/dL (8.5-10.1); Chloride 105 mmol/L (98-107); Glucose 98 mg/dL (74-106); Sodium 138 mmol/L (136-145)
[2020-07-13 19:29] LABS: Hemoglobin A1C 5.1 % (<5.7)
[2020-07-16 11:14] LABS: PSA, Screening 1.2 ng/mL (0.0-4.5)
== END 2020-07-13 15:35 ==
LOC: NCHCN 15:15
PROVIDERS: PCP Family Medicine; Visit Provider Nurse Practitioner Family
DX: R35.8 Other polyuria (principal); R73.03 Prediabetes; Z00.00 Encounter for general adult medical examination without abnormal findings
CPT/HCPCS: 80053; 84153; 85027; 81003; 83036

== ENCOUNTER 2020-07-25 18:50 | Emergency (ER) | payer MEDICARE, MEDICAID, SELFPAY ==
[2020-07-25 18:52] VITALS: BP 120/76; PULSE 85; RESP 16; TEMP 36.1; O2SAT 100
--- NOTE | 2020-07-25 18:53 | W.ED.GENAD ---
Discharge Plan Disposition Patient Disposition: AGAINST MEDICAL ADVICE Condition: Stable Discharge Details Clinical Impression: Esophageal foreign body Primary Care Provider: Armond Yeung ED Provider: Henrique Sethi Home Meds and New Rx's Prescriptions: Continued hydroxyzine HCl 25 mg tablet 25 mg PO QID RF: 0 sucralfate [Carafate] 1 GM tablet 1 g PO QID Qty: 28 RF: 3 sertraline 100 MG tablet 200 mg PO DAILY RF: 0 simvastatin 80 MG tablet 80 mg PO HS RF: 0 topiramate [Topamax] 100 MG tablet 100 mg PO BID RF: 0 buspirone 15 MG tablet 30 mg PO BID RF: 0 quetiapine [Seroquel] 400 mg tablet 800 mg PO HS RF: 0 naltrexone 50 mg tablet 100 mg PO DAILY RF: 0 omeprazole 40 MG capsule,delayed release(DR/EC) 40 mg PO BID Qty: 60 RF: 1 Vraylar 6 mg Capsule 6 mg PO DAILY RF: 0 Discharge Instructions Instructions: Esophageal Foreign Body (ED) Additional Instructions: if you have worsening pain, difficulty breathing or decide you would want an endoscopy if it doesn't pass return to the emergency department follow up with your primary care provider as needed within 1-2 weeks Medical Decision Making <Rosy Bardales DO - Last Filed: 07/25/20 19:42> 1856 -- 59-year-old male with a history of COPD, GERD, schizophrenia and multiple repeated episodes of esophageal food impaction presents for sensation of food bolus stuck in throat that occurred 1 hour ago after eating pork. This is patient's 11th visit for similar episode in less than 2 years Vitals within normal limits. Patient is able to swallow his own secretions but can hear gurgling in the upper airways. Lungs clear. Normal oxygen saturation. Will try effervescent packet. 1934 -- tried effervescence pack x2 with some relief. Will try glucagon and notify surgery in case he is unable to pass. 1999 -- Case endorsed to Dr. Sethi to follow-up on patient response to glucagon with plan for follow-up with surgery if no relief. Medical Records Medical records reviewed: Yes I reviewed the patient's medical records. <Henrique Sethi MD - Last Filed: 07/25/20 20:52> Pt states he feels the foreign body has gone down and feels it will pass tonight, and is requesting d/c. I advised my recommendation since it still feels stuck is for surgery consult but he declines, he has capacity to make his own decisions and understands risks of having retained foreign body including perforation and possible aspiration which could lead to infections causing disability and and is willing to accept these risks. He is requesting a tylenol with codeine one dose for pain as this did help in the past. HE understands he can return at any time if he changes his mind HPI <Rosy Bardales, - Last Filed: 07/25/20 19:42> General Mode of arrival: ambulatory. Date/Time Provider Initiated Documentation: 07/25/20 18:51. Limitations to Documentation: no limitations. Information obtained by: patient. HPI Narrative: Patient is a 59-year-old male with a history of COPD, GERD, hyperlipidemia, schizophrenia and multiple episodes of impacted food bolus requiring ED visit and operative intervention who presents for sensation of pork stuck in his throat after eating it 1 hour ago. Patient states he was eating meat 3 days ago at home and had a sensation that it was stuck but it was able to pass. Patient states he feels that he may have something still stuck or may be just pain. Denies any vomiting but states he is spitting up a lot of mucus. He denies any chest pain, difficulty breathing or abdominal pain. Related Data Home Medications Medication Instructions Recorded Confirmed buspirone 30 mg PO BID 09/06/15 07/25/20 sertraline 200 mg PO DAILY 09/06/15 07/25/20 simvastatin 80 mg PO HS 09/06/15 07/25/20 topiramate [Topamax] 100 mg PO BID 09/06/15 07/25/20 sucralfate [Carafate] 1 g PO QID #28 tab-cap 04/02/17 07/25/20 omeprazole 40 mg PO BID #60 capsule. 02/12/18 07/25/20 hydroxyzine HCl 25 mg tablet 25 mg PO QID 02/25/19 07/25/20 naltrexone 50 mg tablet 100 mg PO DAILY tab 02/25/19 07/25/20 quetiapine 400 mg tablet 800 mg PO HS tab 02/25/19 07/25/20 Vraylar 6 mg PO DAILY 03/31/19 07/25/20 Previous Rx's Medication Instructions Recorded omeprazole 40 mg PO BID #60 capsule. 02/12/18 Allergies Allergy/AdvReac Type Severity Reaction Status Date / Time No Known Allergies Allergy Verified 07/25/20 18:58 General GENEVIEVE: 2 Review of Systems <Rosy Bardales DO - Last Filed: 07/25/20 19:42> All systems reviewed & are unremarkable except as noted in HPI and below Constitutional Constitutional: Reports as per HPI, Denies chills and Denies fever(s) Eyes Eyes: Denies blurry vision ENT Ears, Nose, Mouth, and Throat: Denies dizziness, Denies sore throat and Denies throat swelling Cardiovascular Cardiovascular: Denies chest pain and Denies dyspnea Respiratory Respiratory: Denies cough and Denies dyspnea Gastrointestinal Gastrointestinal: Denies abdominal pain, Denies diarrhea and Denies vomiting Genitourinary Genitourinary: Denies hematuria and Denies dysuria Musculoskeletal Musculoskeletal: Denies back pain and Denies numbness Integumentary/Breasts Skin/Breast: Denies lesions and Denies rash Neurologic Neurologic: Denies dizziness, Denies localized weakness and Denies numbness Allergic/Immunologic Allergic/Immunologic: Denies throat swelling PFSH <Rosy Bardales DO - Last Filed: 07/25/20 19:42> Medical History (Updated 07/25/20 @ 19:42 by Rosy Bardales DO) COPD (chronic obstructive pulmonary disease) GERD (gastroesophageal reflux disease) Hyperlipidemia Impaired fasting glucose Schizophrenia Surgical History EGD - MAC (03/13/17) EGD - MAC (09/25/17) EGD - MAC (02/12/18) History of colonoscopy History of esophagogastroduodenoscopy (EGD) 05/20/19 Dr Elizabeth Jackson, [facility], If the biopsies do not show eosinophilic esophagitis, then he may be a candidate for Giovanni procedure to reduce the degree of inflammation. Social History Smoking/Tobacco Use Status: Former Tobacco Use Smoking risk assessment performed?: Yes Alcohol Intake: current Alcohol Intake frequency: a few times a week Alcohol type: beer Drug use: Never Substance use type: does not use Do you feel safe at home: Yes Do you feel safe in your relationship?: Yes Exam <Rosy Bardales DO - Last Filed: 07/25/20 19:42> Const General: cooperative and other (upper airway gurgling noises w/ occ coughing but able to swallow secretions) Orientation: alert, awake and oriented x3 HENMT Head: normal to inspection Ears: hearing grossly normal bilaterally and external ears normal General nose exam: external nose normal Face and sinus: normal facial exam Mouth: oral mucosae normal Throat: posterior oropharynx normal Eyes General: appearance normal, both eyes and all related structures Eyelids: eyelids normal Pupils: PERRL EOM: EOM intact bilaterally Neck Neck: normal visual inspection Lymphatic: no lymphadenopathy noted Chest Chest: normal inspection of the chest Resp Effort & Inspection: normal respiratory effort and able to speak in complete sentences Auscultation: clear to auscultation bilaterally Cardio Rate: regular rate Rhythm: regular rhythm GI Inspection: normal to inspection Palpation: soft, not firm, no guarding, no hepatosplenomegaly, no masses and nontender Auscultation: normal bowel sounds Skin General skin exam: no rashes or lesions noted Neuro General: patient alert and patient awake Cognition: normal cognition Speech: speech normal Gait: normal gait Motor: muscle tone normal throughout Sensory Exam: no sensory deficits noted Extrem General: normal to inspection, full ROM and capillary refill normal Psych Appearance: grossly normal Mental Status: mental status grossly normal Speech and Movement: speech and movement normal Affect: normal affect Thought Process: normal Sign Out <Rosy Bardales DO - Last Filed: 07/25/20 19:42> Sign Out Data: Sign Out Comment: Follow-up on response to glucagon and additional effervescence. If unable to pass, follow-up with surgery for possible operative intervention. Last updated by Rosy Bardales DO at 07/25/20 19:43
[2020-07-25] MEDS: Glucagon 1 MG VIAL IM (19:50)
[2020-07-25 20:57] VITALS: BP 114/76; PULSE 99; RESP 16; TEMP 36.9; O2SAT 97
== END 2020-07-25 21:00 | disposition left against medical advice (07) ==
PROVIDERS: Emergency Provider Emergency Medicine; PCP Nurse Practitioner Family
DX: T18.128A Food in esophagus causing other injury, initial encounter (principal); K22.2 Esophageal obstruction; Z53.29 Procedure and treatment not carried out because of patient's decision for other reasons; K21.9 Gastro-esophageal reflux disease without esophagitis; J44.9 Chronic obstructive pulmonary disease, unspecified
CPT/HCPCS: 96372; 99284; J1610

== ENCOUNTER → 2020-10-25 12:40 | Outpatient (BNVA) | payer MEDICARE, MEDICAID, SELFPAY | PROVIDERS: PCP Nurse Practitioner Family; Referring Provider Nurse Practitioner Family; Visit Provider Physical Therapy Assistant | DX: Z12.11 Encounter for screening for malignant neoplasm of colon (principal) ==

== ENCOUNTER 2020-11-01 02:30 | Outpatient (CLI) | payer OTHER, MEDICAID, SELFPAY ==
[2020-11-03 09:03] LABS: COVID-19 RT-PCR UVMMC Result Negative (Negative)
== END 2020-11-01 02:31 | disposition home or self-care (01) ==
PROVIDERS: PCP Nurse Practitioner Family; Visit Provider Surgery
DX: Z20.822 Contact with and (suspected) exposure to COVID-19 (principal); Z01.818 Encounter for other preprocedural examination
CPT/HCPCS: U0003

== ENCOUNTER 2020-11-05 08:44 | Day surgery (SDC) | payer OTHER, MEDICAID, SELFPAY ==
--- NOTE | 2020-11-05 07:00 | W.COLOREPORT ---
Date of service: 11/05/20 Time of Service: : Colonoscopy Report Date of procedure: 11/05/20 Pre-op diagnosis general: Colon Cancer Screening Post-op diagnosis procedure note: same Procedure: Colonoscopy with polypectomy Surgeon: Sonya Hodges Anesthesia proc note operative: other (General/ASA 2 Justyn Campos, SAVANAH/) Estimated blood loss (mL): 2 Pathology: other (Transverse polyp) Complications: None Disposition: same day Indications: The patient is here for Colonoscopy pre-op. His last screening was in 2009 and was unremarkable. He has no family history of colon cancer. He has not had any bowel habit changes. -Discussed colonoscopy bowel prep as well as the procedure. Discussed possible complications of the procedure to include bleeding, pain, perforation, missed small lesion/polyp, sore throat, aspiration and adverse reaction to the medications. Questions were answered to patient?s satisfaction. No guarantees were implied or given. I spent 30 minutes in reviewing the record, seeing the patient, providing patient education, answering patient's questions and documenting in the medical record. P// Colonoscopy under sedation Prep: Miralax/Dulcolax Procedure Start Time: : Procedure End Time: 12:07 Retraction Time: 17 minutes Findings: one adenomatous polyp in the Transverse colon Procedure Description: After informed consent was obtained the patient was taken to the procedure room and placed in a left decubitous position. Monitors were applied and a time out was done. The patients name, date of , procedure, allergies to medications and metal in their body was reviewed. The patient was then sedated. Once sedated and comfortable a rectal exam was done. External exam was normal. Internal exam revealed a normal sphincter tone and no palpable masses. The prostate felt smooth. The scope was then introduced and retro-flexed. No internal hemorrhoids, polyps or masses were identified on retro-flexion. The scope was then advanced to the cecum with difficulty due to a tortuous colon. The ileocecal vlave and appendiceal orifice were identified. The prep was adequate. The scope was then slowly retracted over 17 minutes back into the rectum. Polyps were removed with cold forceps in the Transverse colon. There was no diverticulosis noted. The scope was removed and the patient was woken up and taken back to Same day surgery in stable condition. The patient tolerated the procedure well and there were no immediate complications. Follow up: The patient should follow up in 3-5 years unless they develop changes in bowel habits or other new gastrointestinal complaints.
--- NOTE | 2020-11-05 07:01 | W.PM.DSUDISC ---
Discharge Plan Disposition Patient Disposition: HOME Condition: Good Discharge Details Reason For Visit: Colonoscopy Attending Provider: Sonya Hodges Primary Care Provider: Armond Yeung Home Meds and New Rx's Prescriptions: Continued hydroxyzine HCl 25 mg tablet 25 mg PO QID RF: 0 sucralfate [Carafate] 1 GM tablet 1 g PO QID Qty: 28 RF: 3 All Day Allergy (cetirizine) 10 mg capsule 10 mg PO DAILY RF: 0 triamcinolone acetonide [Nasacort] 55 mcg aerosol,spray 1 spray intranasal DAILY RF: 0 Flovent HFA 110 mcg/actuation HFA aerosol inhaler 1 puff inhalation BID RF: 0 hydroxyzine HCl 25 mg tablet 25 mg PO QID PRNRF: 0 sertraline 100 MG tablet 200 mg PO DAILY RF: 0 simvastatin 80 MG tablet 80 mg PO HS RF: 0 topiramate [Topamax] 100 MG tablet 100 mg PO BID RF: 0 buspirone 15 MG tablet 30 mg PO BID RF: 0 quetiapine [Seroquel] 400 mg tablet 800 mg PO HS RF: 0 naltrexone 50 mg tablet 100 mg PO DAILY RF: 0 omeprazole 40 MG capsule,delayed release(DR/EC) 40 mg PO BID Qty: 60 RF: 1 Vraylar 6 mg Capsule 6 mg PO DAILY RF: 0 Discontinued polyethylene glycol 3350 17 gram/dose powder 238 g PO ONCE Qty: 238 RF: 0 bisacodyl [Dulcolax (bisacodyl)] 5 mg tablet,delayed release (DR/EC) 5 mg PO ONCE Qty: 4 RF: 0 Discharge Instructions Instructions: Colorectal Polyps (DC) Additional Instructions: Findings: 2 polyps Follow up: 3-5 years Please call if you develop: fevers >101.5 Nausea or Vomiting Abdominal pain that is not transient DAY SURGERY UNIT POST ENDOSCOPY INSTRUCTIONS 1. Because there will be medication in your system for the next 24 hours, you may feel a little sleepy. Your coordination will be affected. Therefore: a. Do not drive or operate dangerous equipment for 24 hours. b. Do not drink alcohol beverages for 24 hours (not even beer). c. Plan to go home and rest for the day. 2. Generally there are no restrictions on your activity after a day or so has gone by, but you may feel a bit fatigued for a few days. 3 After you arrive home you may have a light meal and return to a normal diet as you can tolerate it without feeling sick to your stomach. 4. After surgery, you may feel pain or discomfort. This should be only transient, but if it persists please contact your doctor. 5. If there are any questions regarding the findings of your procedure, please feel free to contact your doctor. 6. If you are unable to contact your doctor with a problem, contact the hospital at [phone]. 7. Continue all your regular medications unless directed otherwise. I understand the above instructions and have no questions. Signature of Patient or Responsible Adult Escort Date/Time Name of Responsible Adult Escort Signature of Nurse Date/Time Activity:: Activity as Tolerated Diet:: As Tolerated Discharge Orders Discharge Orders: Discharge Order (Routine); Ordered 11/05/20 Ordered By: Sonya Hodges
[2020-11-05 09:15] VITALS: BP 123/82; PULSE 91; RESP 18; TEMP 36.8; O2SAT 99
[2020-11-05] MEDS: Lactated Ringers 1,000 ML 80 ML IV (09:26)
--- NOTE | 2020-11-05 11:25 | BOWEL_PTH ---
PATIENT: Juanjo Story LOC: [facility] U#:[id number] AGE/SX: 60/M ROOM: RE11/05/[address]: Sonya Hodges MD : 1960 BED: DIS: 11/05/2020 SPEC #: [id number] RECD: 11/05/20 12:55 STATUS: JESSICA REQ #: [id number] STEVE: 11/05/20 11:[address]: Sonya Hodges DEPT: Surgical Specimen RECD BY: Tita Mckinley ENTERED: 11/05/20 12:55 SP TYPE: Bowel OTHR DR: Armond Yeung Tissues: 1 - BIOPSY BOWEL 2 - BIOPSY BOWEL Procedures: GROSS AND MICRO LEVEL 4 Comments: [id number]
[2020-11-05 12:40] VITALS: BP 126/78; PULSE 79; RESP 18; TEMP 36; O2SAT 99
== END 2020-11-05 13:35 | disposition home or self-care (01) ==
LOC: SUR 08:45
PROVIDERS: PCP Nurse Practitioner Family; Visit Provider Surgery
PROC: 0DJD8ZZ Inspection of Lower Intestinal Tract, Via Natural or Artificial Opening Endoscopic (ICD-10-PCS; CPT 45378; principal; 2020-11-05 10:00)
DX: Z12.11 Encounter for screening for malignant neoplasm of colon (principal); D12.3 Benign neoplasm of transverse colon; K62.1 Rectal polyp
CPT/HCPCS: 45380; 88305; J2001; J2704

== ENCOUNTER 2021-01-21 20:18 | Emergency (ER) | payer OTHER, MEDICAID, SELFPAY ==
[2021-01-21 20:29] VITALS: BP 118/75; PULSE 90; RESP 14; TEMP 36.5; O2SAT 97
--- NOTE | 2021-01-21 20:40 | ED.GENADUL_ITS ---
Discharge Plan Disposition Patient Disposition: HOME Condition: Stable Discharge Details Clinical Impression: Esophageal foreign body Primary Care Provider: Armond Yeung ED Provider: Henrique Sethi Home Meds and New Rx's Prescriptions: Continued hydroxyzine HCl 25 mg tablet 25 mg PO QID RF: 0 sucralfate [Carafate] 1 GM tablet 1 g PO QID Qty: 28 RF: 3 All Day Allergy (cetirizine) 10 mg capsule 10 mg PO DAILY RF: 0 triamcinolone acetonide [Nasacort] 55 mcg aerosol,spray 1 spray intranasal DAILY RF: 0 Flovent HFA 110 mcg/actuation HFA aerosol inhaler 1 puff inhalation BID RF: 0 hydroxyzine HCl 25 mg tablet 25 mg PO QID PRNRF: 0 sertraline 100 MG tablet 200 mg PO DAILY RF: 0 simvastatin 80 MG tablet 80 mg PO HS RF: 0 topiramate [Topamax] 100 MG tablet 100 mg PO BID RF: 0 buspirone 15 MG tablet 30 mg PO BID RF: 0 quetiapine [Seroquel] 400 mg tablet 800 mg PO HS RF: 0 naltrexone 50 mg tablet 100 mg PO DAILY RF: 0 omeprazole 40 MG capsule,delayed release(DR/EC) 40 mg PO BID Qty: 60 RF: 1 Vraylar 6 mg Capsule 6 mg PO DAILY RF: 0 Discharge Instructions Instructions: Food Impaction (ED) Additional Instructions: if you have difficulty swallowing liquids, severe pain or persistent vomit return to the emergency department follow up with your primary care provider within 1-2 weeks Medical Decision Making 60 yo male who has had prior episodes of food getting stuck in his esophagus, was eating llanos around 7pm tonight and felt a piece get stuck in his throat. Denies dyspnea or cough. No chest pain or abdomen pain or n/v. He points to his chino apple to where he feels it is stuck. He is not drooling and is breathing normally, normal oropharynx. Based on history likely is the food stuck in the esophagus, no indication it is in the airways. HE would like to try effervescent and glucagon after he gets pain meds which I feel is reasonable. Will reassess after toradol, glucagon and effervescent pt states he felt the food go down and now has no symptoms and is swallowing normally. Will d/c and discussed return precautions Differential Diagnosis Differential Diagnosis: foreign body, retained food bolus HPI General Mode of arrival: ambulatory . Date/Time Provider Initiated Documentation: 01/21/21 20:24 . Limitations to Documentation: no limitations . Information obtained by: patient . History of Present Illness 60 year old M presents to the emergency department with the chief complaint of feels food stuck in throat, described as moderate, Patient started experiencing this hour(s) (2) and it has been constant. No relieving factors improve symptom(s), No exacerbating factors reported . Patient notes no other symptoms.. Patient did receive the following treatments prior to arrival, none Related Data Home Medications Medication Instructions Recorded Confirmed buspirone 30 mg PO BID 09/06/15 01/21/21 sertraline 200 mg PO DAILY 09/06/15 01/21/21 simvastatin 80 mg PO HS 09/06/15 01/21/21 topiramate [Topamax] 100 mg PO BID 09/06/15 01/21/21 sucralfate [Carafate] 1 g PO QID #28 tab-cap 04/02/17 01/21/21 omeprazole 40 mg PO BID #60 capsule. 02/12/18 01/21/21 hydroxyzine HCl 25 mg tablet 25 mg PO QID 02/25/19 01/21/21 naltrexone 50 mg tablet 100 mg PO DAILY tab 02/25/19 01/21/21 quetiapine 400 mg tablet 800 mg PO HS tab 02/25/19 01/21/21 Vraylar 6 mg PO DAILY 03/31/19 01/21/21 cetirizine 10 mg capsule 10 mg PO DAILY 09/05/20 01/21/21 fluticasone propionate 110 1 puff INHALATION BID 09/05/20 01/21/21 mcg/actuation HFA aerosol inhaler hydroxyzine HCl 25 mg tablet 25 mg PO QID PRN 09/05/20 01/21/21 triamcinolone acetonide 55 mcg 1 spray INTRANASAL DAILY 09/05/20 01/21/21 nasal spray aerosol Previous Rx's Medication Instructions Recorded omeprazole 40 mg PO BID #60 capsule. 02/12/18 Allergies Allergy/AdvReac Type Severity Reaction Status Date / Time No Known Allergies Allergy Verified 01/21/21 20:32 General Stated Complaint: ThroatFB GENEVIEVE: 3 Review of Systems All systems reviewed & are unremarkable except as noted in HPI and below Constitutional Constitutional: Denies chills, Denies fever(s) and Denies weakness Cardiovascular Cardiovascular: Denies chest pain and Denies dyspnea Respiratory Respiratory: Denies cough and Denies dyspnea Gastrointestinal Gastrointestinal: Denies abdominal pain, Denies nausea and Denies vomiting Musculoskeletal Musculoskeletal: Denies joint swelling Neurologic Neurologic: Denies weakness [facility] Medical History (Updated 01/21/21 @ 21:18 by Henrique Sethi MD) Alcohol abuse, episodic Allergic rhinitis COPD (chronic obstructive pulmonary disease) Diabetes mellitus, type II GERD (gastroesophageal reflux disease) History of prediabetes Hyperlipidemia Impaired fasting glucose Polyuria Schizophrenia Surgical History EGD - MAC (03/13/17) EGD - MAC (09/25/17) EGD - MAC (02/12/18) History of colonoscopy History of esophagogastroduodenoscopy (EGD) 05/20/19 Dr Elizabeth Jackson, [facility], If the biopsies do not show eosinophilic esophagitis, then he may be a candidate for Giovanni procedure to reduce the degree of inflammation. Social History (Updated 10/25/20 @ 13:25 by FEDE Hunter) Smoking/Tobacco Use Status: Former Tobacco Use Quit Date: 09/21/04 Smoking risk assessment performed?: Yes Alcohol Intake: current Alcohol Intake frequency: a few times a week Alcohol type: beer Drug use: Never Substance use type: does not use Do you feel safe at home: Yes Do you feel safe in your relationship?: Yes Exam Const General: no acute distress Orientation: alert HENCA Head: normal to inspection Ears: external ears normal General nose exam: external nose normal Mouth: moist mucous membranes Eyes General: appearance normal, both eyes and all related structures Neck Neck: normal visual inspection Resp Effort & Inspection: normal respiratory effort and able to speak in complete sentences Cardio Rate: regular rate GI Palpation: nontender Skin General skin exam: no rashes or lesions noted Neuro General: patient alert and patient oriented x3 Extrem General: normal to inspection Psych Mental Status: mental status grossly normal Course Vital Signs Vital signs: Vital Signs Temperature 36.5 C 01/21/21 20:29 Pulse 90 01/21/21 20:29 Respiratory Rate 14 01/21/21 20:29 Blood Pressure 118/75 01/21/21 20:29 Pulse Oximetry 97 01/21/21 20:29 Temperature 36.5 C 01/21/21 20:29 Temperature Source Skin 01/21/21 20:29 Pulse 90 01/21/21 20:29 Respiratory Rate 14 01/21/21 20:29 Respiratory Effort Non-Labored 01/21/21 20:33 Respiratory Pattern Normal 01/21/21 20:33 Blood Pressure 118/75 01/21/21 20:29 Blood Pressure Position Sitting 01/21/21 20:29 Pulse Oximetry 97 01/21/21 20:29 Oxygen Delivery Method Room Air 01/21/21 20:29 Oxygen Flow Rate 0 01/21/21 20:29 Pain Level 10 01/21/21 20:29
[2021-01-21] MEDS: Glucagon 1 MG VIAL IVP (20:54)
[2021-01-21] MEDS: Ketorolac 15 MG/ML VIAL IVP (20:54)
[2021-01-21 21:28] VITALS: BP 118/75; PULSE 90; RESP 14; TEMP 36.5; O2SAT 97
== END 2021-01-21 21:30 | disposition home or self-care (01) ==
PROVIDERS: Emergency Provider Emergency Medicine; PCP Nurse Practitioner Family
DX: T18.128A Food in esophagus causing other injury, initial encounter (principal); X58.XXXA Exposure to other specified factors, initial encounter
CPT/HCPCS: 96374; 96375; 99284; 99283; J1610; J1885

== ENCOUNTER 2021-04-23 13:21 | Outpatient (REF) | payer OTHER, MEDICAID, SELFPAY ==
[2021-04-23 16:25] LABS: Hemoglobin A1C 5.2 % (<5.7)
[2021-04-23 16:45] LABS: ALT 52 U/L (16-63); AST 46 U/L (15-37); Albumin 4.3 g/dL (3.4-5.0); Alkaline Phosphatase 72 U/L (46-116); Anion Gap 7.1 mmol/L (3-11); BUN 10 mg/dL (7-18); Bilirubin, Total 0.2 mg/dL (0.2-1.0); CO2 26.9 mmol/L (21.0-32.0); CREATININE 0.8 mg/dL (0.70-1.30); Calcium 9.2 mg/dL (8.5-10.1); Calculated LDL 61 mg/dL (<100); Chloride 103 mmol/L (98-107); Cholesterol 161 mg/dL (<200); Glucose 86 mg/dL (74-106); HDL Cholesterol 82 mg/dL (40-60); Potassium 3.8 mmol/L (3.5-5.1); Sodium 137 mmol/L (136-145); Total Protein 7.2 g/dL (6.4-8.2); Triglyceride 91 mg/dL (<150)
== END 2021-04-23 13:22 | disposition home or self-care (01) ==
LOC: NCHCN 13:21
PROVIDERS: PCP Nurse Practitioner Family; Visit Provider Physician Assistant
DX: R73.03 Prediabetes (principal); E78.5 Hyperlipidemia, unspecified
CPT/HCPCS: 80053; 80061; 83036

== ENCOUNTER 2021-11-21 18:35 | Outpatient (REF) | payer OTHER, MEDICAID, SELFPAY ==
[2021-11-21 14:30] LABS: HCT 43.8 % (40.0-50.0); HGB 14.1 g/dL (13.5-17.5); MCH 30.9 pg (27.0-33.0); MCHC 32.2 % (32.0-36.0); MCV 96.1 fL (80-95); MPV 9.9 fL (8.0-11.0); Platelet Count 218 10^3/uL (130-400); RBC 4.56 10^6/uL (4.36-5.78); RDW 13.6 % (11.8-14.1); RDW-SD 48.4 fL
[2021-11-21 14:50] LABS: ALT 51 U/L (16-63); AST 57 U/L (15-37); Albumin 4.2 g/dL (3.4-5.0); Alkaline Phosphatase 90 U/L (46-116); Anion Gap 13.5 mmol/L (3-11); BUN 8 mg/dL (7-18); Bilirubin, Total 0.4 mg/dL (0.2-1.0); CO2 24.5 mmol/L (21.0-32.0); CREATININE 0.8 mg/dL (0.70-1.30); Chloride 105 mmol/L (98-107); Glucose 97 mg/dL (74-106); Potassium 4.1 mmol/L (3.5-5.1); Sodium 143 mmol/L (136-145); Total Protein 7.1 g/dL (6.4-8.2)
[2021-11-23 11:32] LABS: COVID-19 RT-PCR UVMMC Result Negative (Negative)
== END 2021-11-21 18:36 | disposition home or self-care (01) ==
LOC: LBN 18:35
PROVIDERS: PCP Nurse Practitioner Family; Visit Provider Physician Assistant Medical
DX: R53.1 Weakness (principal); Z20.822 Contact with and (suspected) exposure to COVID-19
CPT/HCPCS: 80053; 85027; U0003

== ENCOUNTER 2021-11-29 16:35 | Outpatient (REF) | payer OTHER, MEDICAID, SELFPAY ==
[2021-11-29 15:30] LABS: Abs Immature Grans 0.03 10^3/uL (0.0-0.06); Absolute Basophil Count 0.04 10^3/uL (0.0-0.2); Absolute Lymphocyte Count 1.34 10^3/uL (1.2-3.4); Absolute Monocyte Count 0.42 10^3/uL (0.1-0.8); Basophils % 0.5; Eosinophils % 2.5; HCT 40.2 % (40.0-50.0); HGB 13.1 g/dL (13.5-17.5); Immature Grans % 0.4; Lymphocytes % 16.9; MCH 31.4 pg (27.0-33.0); MCHC 32.6 % (32.0-36.0); MCV 96.4 fL (80-95); Monocytes % 5.3; Neutrophils % 74.4; Nucleated RBC 0 %; Platelet Count 212 10^3/uL (130-400); RBC 4.17 10^6/uL (4.36-5.78); RDW 13.3 % (11.8-14.1); RDW-SD 47.8 fL; WBC 7.93 10^3/uL (4.4-10.8)
[2021-11-29 15:33] LABS: ESR 5 mm/hr (0-20)
[2021-11-29 16:14] LABS: ALT 44 U/L (16-63); AST 54 U/L (15-37); Albumin 4.2 g/dL (3.4-5.0); Alkaline Phosphatase 69 U/L (46-116); Anion Gap 10.9 mmol/L (3-11); BUN 9 mg/dL (7-18); Bilirubin, Total 0.3 mg/dL (0.2-1.0); C-Reactive Protein 0.58 mg/dL (0.0-0.3); CO2 24.1 mmol/L (21.0-32.0); CREATININE 0.8 mg/dL (0.70-1.30); Calcium 8.8 mg/dL (8.5-10.1); Chloride 106 mmol/L (98-107); Glucose 97 mg/dL (74-106); Potassium 4.2 mmol/L (3.5-5.1); Sodium 141 mmol/L (136-145); Total Protein 7.1 g/dL (6.4-8.2)
[2021-11-30 09:48] LABS: HIV-1/2 Ag & Ab Screen Negative (Negative)
[2021-12-02 14:52] LABS: Hepatitis A Antibody IgM Negative (Negative); Hepatitis B Core Antibody Negative (Negative); Hepatitis B surface Ag Negative (Negative); Hepatitis C Ab w Rflx HCV PCR Negative (Negative)
== END 2021-11-29 16:36 | disposition home or self-care (01) ==
LOC: NCHCN 16:35
PROVIDERS: PCP Nurse Practitioner Family; Visit Provider Nurse Practitioner Family
DX: R53.1 Weakness (principal); R79.89 Other specified abnormal findings of blood chemistry; M25.59 Pain in other specified joint; Z11.4 Encounter for screening for human immunodeficiency virus [HIV]; Z11.59 Encounter for screening for other viral diseases
CPT/HCPCS: 80053; 85652; 86704; 86709; 86803; 87340; 87389; 85025; 86140

== ENCOUNTER 2022-03-27 20:35 | Emergency (ER) | payer OTHER, MEDICAID, SELFPAY ==
[2022-03-27 20:40] VITALS: BP 133/74; PULSE 78; RESP 16; TEMP 36.4; O2SAT 96
--- NOTE | 2022-03-27 20:52 | ED.GENADUL_ITS ---
Discharge Plan Disposition Patient Disposition: HOME Condition: Good Discharge Details Clinical Impression: Esophageal foreign body Primary Care Provider: Prasanna Browne ED Provider: Tita Sewell Home Meds and New Rx's Prescriptions: Continued sucralfate [Carafate] 1 GM tablet 1 g PO QID Qty: 28 All Day Allergy (cetirizine) 10 mg capsule 10 mg PO DAILY triamcinolone acetonide [Nasacort] 55 mcg aerosol,spray 1 spray intranasal DAILY Rx Instructions: administer into each nostril fluticasone propionate [Flovent HFA] 110 mcg/actuation HFA aerosol inhaler 1 puff inhalation BID hydroxyzine HCl 25 mg tablet 25 mg PO QID PRN aspirin 81 mg tablet,delayed release (DR/EC) 81 mg PO DAILY topiramate 50 mg tablet 50 mg PO DAILY albuterol sulfate 90 mcg/actuation HFA aerosol inhaler 2 puff inhalation Q4H PRN triamcinolone acetonide [Nasacort] 55 mcg aerosol,spray 1 spray intranasal DAILY Rx Instructions: administer into each nostril buspirone 15 mg tablet 15 mg PO BID sertraline 100 MG tablet 200 mg PO DAILY simvastatin 80 MG tablet 80 mg PO HS quetiapine [Seroquel] 400 mg tablet 800 mg PO HS naltrexone 50 mg tablet 100 mg PO DAILY omeprazole 40 MG capsule,delayed release(DR/EC) 40 mg PO BID Qty: 60 1RF Vraylar 6 mg Capsule 6 mg PO DAILY Discharge Instructions Additional Instructions: Cut your food into small pieces into completely Soft diet as tolerated over the course of the next couple days Should this continue to happen, I recommend endoscopy Return earlier should you have new or worsening complaints Discharge Data Discharge Date/Time-TO BE ENTERED AT DEPARTURE: 03/27/22 21:06 Medical Decision Making When I walked into the room to reassess patient he had dislodged lobster He was maintaining secretions Request discharge home at this time Will likely need outpatient endoscopy, discussed with patient Medical Records Medical records reviewed: Yes I reviewed the patient's medical records. HPI General Date/Time Provider Initiated Documentation: 03/27/22 20:52 . HPI Narrative: This 61-year-old male presents with report of pain in his throat. He states he was eating a lobster tail and he is unable to swallow his saliva. He states it happens occasionally. Denies any chest pain or shortness of breath. Related Data Home Medications Medication Instructions Recorded Confirmed sertraline 100 mg tablet 200 mg PO DAILY 09/06/15 03/27/22 simvastatin 80 mg tablet 80 mg PO HS 09/06/15 03/27/22 sucralfate 1 gram tablet (Carafate) 1 g PO QID #28 tab-caps 04/02/17 03/27/22 omeprazole 40 mg capsule,delayed 40 mg PO BID ##60 02/12/18 03/27/22 release naltrexone 50 mg tablet 100 mg PO DAILY 02/25/19 03/27/22 quetiapine 400 mg tablet (Seroquel) 800 mg PO HS 02/25/19 03/27/22 cariprazine 6 mg capsule (Vraylar) 6 mg PO DAILY 03/31/19 03/27/22 cetirizine 10 mg capsule (All Day 10 mg PO DAILY 09/05/20 03/27/22 Allergy (cetirizine)) fluticasone propionate 110 1 puff inhalation BID 09/05/20 03/27/22 mcg/actuation HFA aerosol inhaler (Flovent HFA) hydroxyzine HCl 25 mg tablet 25 mg PO QID PRN 09/05/20 03/27/22 triamcinolone acetonide 55 mcg 1 spray intranasal DAILY 09/05/20 03/27/22 nasal spray aerosol (Nasacort) albuterol sulfate 90 mcg/actuation 2 puff inhalation Q4H PRN 02/19/22 03/27/22 aerosol inhaler aspirin 81 mg tablet,delayed 81 mg PO DAILY 02/19/22 03/27/22 release buspirone 15 mg tablet 15 mg PO BID 02/19/22 03/27/22 topiramate 50 mg tablet 50 mg PO DAILY 02/19/22 03/27/22 triamcinolone acetonide 55 mcg 1 spray intranasal DAILY 02/19/22 03/27/22 nasal spray aerosol (Nasacort) Previous Rx's Medication Instructions Recorded omeprazole 40 mg capsule,delayed 40 mg PO BID ##60 02/12/18 release Allergies Allergy/AdvReac Type Severity Reaction Status Date / Time No Known Allergies Allergy Verified 03/27/22 20:43 General Stated Complaint: ThroatFB GENEVIEVE: 3 Review of Systems All systems reviewed & are unremarkable except as noted in HPI and below PFSH All Active Problems (Updated 03/27/22 @ 20:54 by FEDE Garcia) Tubular adenoma (Acute ~10/2020) Colon polyp, hyperplastic (Acute ~10/2020) Esophageal foreign body (Acute) Esophagitis (Acute) Medical History (Updated 03/27/22 @ 20:54 by FEDE Garcia) Alcohol abuse COPD (chronic obstructive pulmonary disease) Diabetes mellitus, type II Elevated serum glutamic pyruvic transaminase (SGPT) level GERD (gastroesophageal reflux disease) History of prediabetes Hyperlipidemia Schizophrenia Surgical History EGD - MAC (03/13/17) EGD - MAC (09/25/17) EGD - MAC (02/12/18) History of colonoscopy History of esophagogastroduodenoscopy (EGD) 05/20/19 Dr Elizabeth Jackson, [facility], If the biopsies do not show eosinophilic esophagitis, then he may be a candidate for Giovanni procedure to reduce the degree of inflammation. Social History (Updated 10/25/20 @ 13:25 by FEDE Hunter) Smoking/Tobacco Use Status: Former Tobacco Use Quit Date: 09/21/04 Smoking risk assessment performed?: Yes Alcohol Intake: current Alcohol Intake frequency: a few times a week Alcohol type: beer Drug use: Never Substance use type: does not use Do you feel safe at home: Yes Do you feel safe in your relationship?: Yes Exam Const General: cooperative and comfortable Orientation: alert and oriented x3 HENMT Other: Uvula midline, no visible foreign body Neck Other: No stridor Resp Effort & Inspection: normal respiratory effort Auscultation: clear to auscultation bilaterally Cardio Rate: regular rate Rhythm: regular rhythm Skin General skin exam: no rashes or lesions noted Neuro General: patient alert and patient oriented x3 Course Vital Signs Vital signs: Vital Signs Pulse 78 03/27/22 20:40 Respiratory Rate 16 03/27/22 20:40 Blood Pressure 133/74 03/27/22 20:40 Temperature Source Temporal Artery Scan 03/27/22 20:40 Pulse 78 03/27/22 20:40 Respiratory Rate 16 03/27/22 20:40 Respiratory Effort 03/27/22 20:40 Blood Pressure 133/74 03/27/22 20:40 Oxygen Delivery Method Room Air 03/27/22 20:40 Oxygen Flow Rate 0 03/27/22 20:40 Pain Level 10 03/27/22 20:40
== END 2022-03-27 21:06 | disposition home or self-care (01) ==
PROVIDERS: Emergency Provider Physician Assistant; PCP Physician Assistant
DX: T18.128A Food in esophagus causing other injury, initial encounter (principal); X58.XXXA Exposure to other specified factors, initial encounter
CPT/HCPCS: 99281

== ENCOUNTER → 2022-05-13 13:32 | Outpatient (BNVA) | payer OTHER, MEDICAID, SELFPAY | PROVIDERS: PCP Physician Assistant; Referring Provider Physician Assistant; Visit Provider Psychiatry & Neurology Neurology | DX: F20.9 Schizophrenia, unspecified (principal); E11.9 Type 2 diabetes mellitus without complications; G21.11 Neuroleptic induced parkinsonism; R13.10 Dysphagia, unspecified | CPT/HCPCS: 99215 ==

== ENCOUNTER → 2022-08-12 09:38 | Outpatient (BNVA) | payer OTHER, MEDICAID, SELFPAY | PROVIDERS: PCP Physician Assistant; Referring Provider Physician Assistant; Visit Provider Psychiatry & Neurology Neurology | DX: G21.11 Neuroleptic induced parkinsonism (principal); R29.898 Other symptoms and signs involving the musculoskeletal system; R13.10 Dysphagia, unspecified; E11.9 Type 2 diabetes mellitus without complications | CPT/HCPCS: 99214 ==

== ENCOUNTER → 2022-09-09 11:07 | Outpatient (BNVA) | payer OTHER, MEDICAID, SELFPAY | PROVIDERS: PCP Physician Assistant; Referring Provider Physician Assistant; Visit Provider Psychiatry & Neurology Neurology | DX: G21.11 Neuroleptic induced parkinsonism (principal); R13.10 Dysphagia, unspecified; E11.9 Type 2 diabetes mellitus without complications | CPT/HCPCS: 99214 ==

== ENCOUNTER → 2022-10-21 10:59 | Outpatient (BNVA) | payer OTHER, MEDICAID, SELFPAY | PROVIDERS: PCP Physician Assistant; Referring Provider Physician Assistant; Visit Provider Psychiatry & Neurology Neurology | DX: G21.11 Neuroleptic induced parkinsonism (principal); R13.10 Dysphagia, unspecified; K21.9 Gastro-esophageal reflux disease without esophagitis; E11.9 Type 2 diabetes mellitus without complications | CPT/HCPCS: 99214 ==

== ENCOUNTER → 2023-01-19 10:46 | Outpatient (BNVA) | payer OTHER, MEDICAID, SELFPAY | PROVIDERS: PCP Physician Assistant; Referring Provider Physician Assistant; Visit Provider Psychiatry & Neurology Neurology | DX: K21.9 Gastro-esophageal reflux disease without esophagitis (principal); R41.3 Other amnesia; F39 Unspecified mood [affective] disorder; G21.11 Neuroleptic induced parkinsonism; R13.10 Dysphagia, unspecified | CPT/HCPCS: 99214 ==

== ENCOUNTER 2023-04-07 17:04 | Outpatient (REF) | payer OTHER, MEDICAID, SELFPAY ==
[2023-04-07 19:17] LABS: HCT 37.7 % (40.0-50.0); HGB 12.6 g/dL (13.5-17.5); MCH 30.8 pg (27.0-33.0); MCHC 33.4 % (32.0-36.0); MCV 92 fL (80-95); MPV 10.3 fL (8.0-11.0); Platelet Count 177 10^3/uL (130-400); RBC 4.09 10^6/uL (4.36-5.78); RDW 12.8 % (11.8-14.1); RDW-SD 43.2 fL; WBC 6.07 10^3/uL (4.4-10.8)
[2023-04-07 19:24] LABS: ALT 9 U/L (16-63); AST 23 U/L (15-37); Albumin 4.1 g/dL (3.4-5.0); Alkaline Phosphatase 80 U/L (46-116); Anion Gap 8.1 mmol/L (3-11); BUN 11 mg/dL (7-18); Bilirubin, Total 0.3 mg/dL (0.2-1.0); CO2 28.9 mmol/L (21.0-32.0); Calcium 8.5 mg/dL (8.5-10.1); Calculated LDL 49 mg/dL (<100); Chloride 106 mmol/L (98-107); Cholesterol 143 mg/dL (<200); Estimated GFR 84.57 (mL/min/1.73m2); Glucose 92 mg/dL (74-106); HDL Cholesterol 88 mg/dL (40-60); Potassium 3.7 mmol/L (3.5-5.1); Sodium 143 mmol/L (136-145); Total Protein 6.4 g/dL (6.4-8.2); Triglyceride 30 mg/dL (<150)
[2023-04-08 19:53] LABS: PSA, Screening 0.8 ng/mL (<=4.5)
== END 2023-04-07 17:05 | disposition home or self-care (01) ==
LOC: NCHCN 17:04
PROVIDERS: PCP Physician Assistant; Visit Provider Physician Assistant
DX: E78.5 Hyperlipidemia, unspecified (principal); K21.9 Gastro-esophageal reflux disease without esophagitis; Z12.5 Encounter for screening for malignant neoplasm of prostate
CPT/HCPCS: 80053; 80061; 84153; 85027

== ENCOUNTER → 2023-04-29 10:28 | Outpatient (BNVA) | payer OTHER, MEDICAID, SELFPAY | PROVIDERS: PCP Physician Assistant; Referring Provider Physician Assistant; Visit Provider Psychiatry & Neurology Neurology | DX: K21.9 Gastro-esophageal reflux disease without esophagitis (principal); F39 Unspecified mood [affective] disorder; E11.9 Type 2 diabetes mellitus without complications; G21.11 Neuroleptic induced parkinsonism; R13.10 Dysphagia, unspecified; R41.3 Other amnesia | CPT/HCPCS: 99213 ==

== ENCOUNTER → 2023-09-30 12:45 | Outpatient (BNVA) | payer OTHER, MEDICAID, SELFPAY | PROVIDERS: PCP Physician Assistant; Referring Provider Physician Assistant; Visit Provider Psychiatry & Neurology Neurology | DX: G21.11 Neuroleptic induced parkinsonism (principal); R13.10 Dysphagia, unspecified; R41.3 Other amnesia | CPT/HCPCS: 99213 ==

== ENCOUNTER → 2023-10-17 09:52 | Outpatient (CLI) | payer OTHER, MEDICAID, SELFPAY ==
--- NOTE | 2023-10-17 | DI.RAD_ITS ---
Exam(s) XR CHEST 2V PA LATERAL EXAM: XR CHEST 2V PA LATERAL CLINICAL HISTORY: R05.9 COUGH UNSPECIFIED TECHNIQUE: 2D digital imaging was performed of the chest. Two images were obtained. PA and lateral views were obtained. COMPARISON: CR XR PORTABLE CHEST AP from 08/01/2018 FINDINGS: MEDIASTINUM: Normal. HEART: Normal. PULMONARY VASCULATURE: Normal. LUNGS: Clear. PLEURAL SPACE: No pleural effusion or pneumothorax. BONE:Within normal limits for the patient's age. OTHER FINDINGS:Normal. IMPRESSION: No acute pulmonary findings. DATA REPOSITORY: RADIATION DOSE DELIVERED:
--- NOTE | 2023-10-17 10:40 | DI.VRAD_ITS ---
PROCEDURE INFORMATION: Exam: XR Chest Exam date and time: 10/17/2023 10:24 AM Age: 63 years old Clinical indication: Cough TECHNIQUE: Imaging protocol: Radiologic exam of the chest. Views: 2 views. COMPARISON: SC XR PORTABLE CHEST AP 08/01/2018 7:07 PM FINDINGS: Lungs: No consolidation. Pleural spaces: No pleural effusion. No pneumothorax. Heart/Mediastinum: No cardiomegaly. Bones/joints: Unremarkable. IMPRESSION: No acute findings. Dictated and Authenticated by: Kecia De Leon MD. Ordering:SAVANNAH GRIFFIN MD
== END ==
PROVIDERS: PCP Physician Assistant; Visit Provider Nurse Practitioner Family
DX: R05.9 Cough, unspecified (principal)
CPT/HCPCS: 71046

== ENCOUNTER 2023-10-28 17:37 | Emergency (ER) | payer OTHER, MEDICAID, SELFPAY ==
[2023-10-28] VITALS (7 sets, daily range): BP systolic 104–160; BP diastolic 58–85; PULSE 63–83; RESP 16–21; TEMP 36.1–37; O2SAT 94–99; BMI 22.1
--- NOTE | 2023-10-28 17:39 | ED.GENADUL_ITS ---
HPI General Date/Time Provider Initiated Documentation: 10/28/23 17:39 . HPI Narrative: MDM This is an afebrile and not tachycardic 63-year-old male with esophageal food impaction for which we will trial empiric dose of sodium bicarbonate?EZ gas. Patient's symptoms unfortunately failed to resolve. I spoke with Dr. Carbajal who came in and took the patient to endoscopy.I ordered basic labs which showed leukocytosis and improved normocytic anemia. No FARHAD. Reassuring basic metabolic panel. I have ordered these labs only for anesthesia as needed. No trauma and equal breath sounds without pneumothorax so I did not obtain a chest x-ray. Given no hematemesis and I did not send type and screen as I was not concerned for Justyna-Borden tear. No significant chest pain so my suspicion for esophageal rupture is low so I did not order any cross-sectional imaging. In the absence of chest pain I did not obtain ECG nor presented troponin. No pain or proportion to suggest necrotizing soft tissue infection. I provided the patient with 500 cc of crystalloid while keeping him NPO. Chronic conditions affecting the care of the patient: Dysphagia parkinsonism History obtained from an outside historian: N/A External record review: N/A Medications: EZ gas Social determinants of health affecting disposition: N/A Management discussed with: Dr. Carbajal Treatment/interventions considered: N/A Response to therapies provided:N/A HPI This is a 63-year-old male with a history of dysphagia parkinsonism and previous esophageal food impactions arrived to the emergency department via private vehicle after eating a piece of llanos which became lodged in his throat approximately 2 hours ago. He has not been able to tolerate p.o. liquids or solids. He feels that the foreign body is at the base of his tongue. He denies any other concerns. He was in his usual state of health earlier today with no nausea vomiting chest pain or shortness of breath. He is not having any chest pain at the moment and no fevers. Exam General: Mildly uncomfortable-appearing in no acute distress speaking in complete sentences. Head: Normocephalic, atraumatic. Eye: Extraocular eye movements intact. No conjunctival injection. No scleral icterus. Ear, nose, mouth, throat: Grossly normal inspection. Normal voice, handling secretions normally. No obvious foreign bodies in posterior oropharynx. Neck: Trachea midline. Cardiovascular: Well-perfused distal extremities. Regular rate and rhythm. Respiratory: Nonlabored respiration. Clear lungs bilaterally. No chest wall crepitance Gastrointestinal: Nondistended abdomen.Soft nontender. Musculoskeletal: No edema. Moving all 4 extremities spontaneously. Skin: Normal for age and race, grossly normal temperature and turgor. No acute rash. Neurologic: Alert and appropriate, no apparent acute deficits. Related Data Home Medications Medication Instructions Recorded Confirmed sertraline 100 mg tablet 200 mg PO DAILY 09/06/15 09/30/23 sucralfate 1 gram tablet (Carafate) 1 g PO QID #28 tab-caps 04/02/17 09/30/23 omeprazole 40 mg capsule,delayed 40 mg PO BID ##60 02/12/18 09/30/23 release naltrexone 50 mg tablet 100 mg PO DAILY 02/25/19 09/30/23 quetiapine 400 mg tablet (Seroquel) 800 mg PO HS 02/25/19 09/30/23 cariprazine 6 mg capsule (Vraylar) 6 mg PO DAILY 03/31/19 09/30/23 cetirizine 10 mg capsule (All Day 10 mg PO DAILY 09/05/20 09/30/23 Allergy (cetirizine)) hydroxyzine HCl 25 mg tablet 25 mg PO QID PRN 09/05/20 09/30/23 buspirone 15 mg tablet 30 mg PO BID 05/13/22 09/30/23 polyethylene glycol 3350 17 17 g PO DAILY 10/21/22 09/30/23 gram/dose oral powder celecoxib 100 mg capsule (Celebrex) 100 mg PO DAILY 04/29/23 09/30/23 carbidopa 25 mg-levodopa 100 mg 1 tab PO QID #360 tabs 09/30/23 09/30/23 tablet (Sinemet) topiramate 50 mg tablet 50 mg PO DAILY 09/30/23 09/30/23 Previous Rx's Medication Instructions Recorded omeprazole 40 mg capsule,delayed 40 mg PO BID ##60 02/12/18 release carbidopa 25 mg-levodopa 100 mg 1 tab PO QID #360 tabs 09/30/23 tablet (Sinemet) Allergies Allergy/AdvReac Type Severity Reaction Status Date / Time No Known Allergies Allergy Verified 09/30/23 12:48 General GENEVIEVE: 3 Medical Decision Making Quality:SDOH Health Related Social Needs: No Data to Display PFSH All Active Problems Memory deficit (Acute) Dysphagia (Acute) Parkinsonism (Acute) Tubular adenoma (Acute ~10/2020) Colon polyp, hyperplastic (Acute ~10/2020) Esophageal foreign body (Acute) Esophagitis (Acute) Medical History Alcohol abuse Elevated serum glutamic pyruvic transaminase (SGPT) level Diabetes mellitus, type II History of prediabetes GERD (gastroesophageal reflux disease) COPD (chronic obstructive pulmonary disease) Schizophrenia Hyperlipidemia Surgical History History of esophagogastroduodenoscopy (EGD) 05/20/19 Dr Elizabeth Jackson, [facility], If the biopsies do not show eosinophilic esophagitis, then he may be a candidate for Giovanni procedure to reduce the degree of inflammation. History of colonoscopy EGD - MAC (02/12/18) EGD - MAC (09/25/17) EGD - MAC (03/13/17) Family History Other Diabetes Hyperlipidemia Hypertension Social History Smoking/Tobacco Use Status: Former Tobacco Use Quit Date: 09/21/04 Smoking risk assessment performed?: Yes Alcohol Intake: current Alcohol Intake frequency: a few times a week Alcohol type: beer Drug use: Never Substance use type: does not use Housing: house Do you feel safe at home: Yes Do you feel safe in your relationship?: Yes Discharge Plan Disposition Patient Disposition: Home Condition: Good Discharge Details Clinical Impression: Esophageal foreign body Primary Care Provider: Prasanna Browne ED Provider: Saul Fuller Bertrand Meds and New Rx's Prescriptions: Continued polyethylene glycol 3350 17 gram/dose powder 17 g PO DAILY celecoxib [Celebrex] 100 mg capsule 100 mg PO DAILY topiramate 50 mg tablet 50 mg PO DAILY carbidopa-levodopa [Sinemet] 25-100 mg tablet 1 tab PO QID Qty: 360 3RF Rx Instructions: Take around 6am, 10am, 2pm, and 6pm (about every 4 hours) sucralfate [Carafate] 1 GM tablet 1 g PO QID Qty: 28 All Day Allergy (cetirizine) 10 mg capsule 10 mg PO DAILY hydroxyzine HCl 25 mg tablet 25 mg PO QID PRN buspirone 15 mg tablet 30 mg PO BID sertraline 100 MG tablet 200 mg PO DAILY quetiapine [Seroquel] 400 mg tablet 800 mg PO HS naltrexone 50 mg tablet 100 mg PO DAILY omeprazole 40 MG capsule,delayed release(DR/EC) 40 mg PO BID Qty: 60 1RF Vraylar 6 mg Capsule 6 mg PO DAILY Discharge Instructions Instructions: Esophageal Foreign Body (GEN), Aspiration Precautions (GEN) Additional Instructions: Juanjo, we were able to retrieve the foreign body from your throat without any difficulty today. I suspect that the reason it got stuck with some difficulty with swallowing combined with the fact that the food itself was still quite large. I did not see any abnormalities of the esophagus that caused it to get stuck. I would like you to stick with a liquid diet over the next 48 hours to make sure that your swallowing feels back to normal. You may have a sore throat over the next few days. I would encourage you to use things like Chloraseptic spray to help with discomfort. Warm liquids such as tea, or cold things such as popsicles or ice creams may also provide some relief. Assuming you are able to swallow normal after 48 hours, you could advance her diet back to regular food, but I would encourage you to cut it into pieces that are no larger than a sugar cube, and you should be very careful to chew the food completely before you initiate swallowing. I also recommend that you follow-up with your primary care doctor, or Dr. Evans for reconsideration of a consultation with a speech and swallow therapist. If you need anything at all, or have any questions, please do not hesitate to call the [facility] at any time. Discharge Data Discharge Date/Time-TO BE ENTERED AT DEPARTURE: 10/28/23 20:57 Discharge Physician: Musa Carbajal
[2023-10-28 18:44] LABS: Abs Immature Grans 0.07 10^3/uL (0.0-0.06); Absolute Basophil Count 0.07 10^3/uL (0.0-0.2); Absolute Lymphocyte Count 1.41 10^3/uL (1.2-3.4); Basophils % 0.6; Eosinophils % 0.9; HCT 39.9 % (40.0-50.0); HGB 13.2 g/dL (13.5-17.5); Immature Grans % 0.6; Lymphocytes % 12.6; MCH 29.9 pg (27.0-33.0); MCHC 33.1 % (32.0-36.0); MCV 90 fL (80-95); MPV 8.4 fL (8.0-11.0); Monocytes % 3.6; Neutrophils % 81.7; Platelet Count 280 10^3/uL (130-400); RBC 4.42 10^6/uL (4.36-5.78); RDW 12.9 % (11.8-14.1); RDW-SD 42.5 fL; WBC 11.23 10^3/uL (4.4-10.8)
[2023-10-28 18:46] LABS: Absolute Neutrophil Count 9.17 10^3/uL (1.2-6.7)
[2023-10-28] MEDS: Normal Saline 500 ML IV (18:51)
[2023-10-28 18:53] LABS: Anion Gap 10.6 mmol/L (3-11); BUN 6 mg/dL (7-18); CO2 25.4 mmol/L (21.0-32.0); CREATININE 0.7 mg/dL (0.70-1.30); Calcium 8.9 mg/dL (8.5-10.1); Chloride 104 mmol/L (98-107); Estimated GFR 102.89 (mL/min/1.73m2); Glucose 101 mg/dL (74-106); Potassium 3.7 mmol/L (3.5-5.1); Sodium 140 mmol/L (136-145)
--- NOTE | 2023-10-28 19:06 | W.PM.HP.N ---
Date of service: 10/28/23 Time of Service: 19:06 Assessment and Plan Assessment and plan (1) Esophageal foreign body: Status: Acute Assessment and plan: By history and exam, this certainly seems consistent with a retained foreign body in the esophagus. At the current time, he is able to expectorate most of his secretions. He is protecting his airway. I think at this point the only option is to move forward with urgent EGD to help clear the esophagus and relieve his symptoms. We talked about the risks and the benefits of the procedure, which she seems to understand, and we will make arrangements to proceed an emergent fashion Qualifiers: Encounter type: initial encounter Qualified Code(s): T18.108A - Unspecified foreign body in esophagus causing other injury, initial encounter History of Present Illness History of Present Illness Chief Complaint: Food bolus stuck in throat Narrative: Juanjo is 63 years old, he is got a past medical history that is most significant for parkinsonism. He started eating clam chowder for dinner tonight, and after the first bite, felt like he had some food stuck in his throat. He describes it as a sticking painful feeling in the lower neck, slightly to the right side. He says it feels like it wants to move, but he cannot quite get it up or down. He has been gagging and retching a bit. This is similar to episodes that he is experienced in the past. He tells me he did have to have food taken out of his throat in the past, although he cannot recall the exact date or the details related to that. Review of Systems Constitutional Constitutional: Denies fever(s), Denies poor appetite and Denies weight loss Eyes Eyes: Reports system reviewed and no additional complaints, except as documented ENT Ears, Nose, Mouth, and Throat: Reports system reviewed and no additional complaints, except as documented and Reports dysphagia Cardiovascular Cardiovascular: Denies chest pain and Denies dyspnea Respiratory Respiratory: Denies chest congestion, Denies cough and Denies dyspnea Gastrointestinal Gastrointestinal: Denies abdominal pain, Denies belching, Reports dysphagia, Denies dyspepsia, Denies nausea and Denies vomiting Genitourinary Genitourinary: Reports system reviewed and no additional complaints, except as documented Musculoskeletal Musculoskeletal: Reports system reviewed and no additional complaints, except as documented Neurologic Neurologic: Reports system reviewed and no additional complaints, except as documented Psychiatric Psychiatric: Reports system reviewed and no additional complaints, except as documented Endocrine Endocrine: Reports system reviewed and no additional complaints, except as documented Hematologic/Lymphatic Hematologic/Lymphatic: Denies easy bleeding and Denies easy bruising PFSH All Active Problems Memory deficit (Acute) Dysphagia (Acute) Parkinsonism (Acute) Tubular adenoma (Acute ~10/2020) Colon polyp, hyperplastic (Acute ~10/2020) Esophageal foreign body (Acute) Esophagitis (Acute) Medical History Alcohol abuse Elevated serum glutamic pyruvic transaminase (SGPT) level Diabetes mellitus, type II History of prediabetes GERD (gastroesophageal reflux disease) COPD (chronic obstructive pulmonary disease) Schizophrenia Hyperlipidemia Surgical History History of esophagogastroduodenoscopy (EGD) 05/20/19 Dr Elizabeth Jackson, [facility], If the biopsies do not show eosinophilic esophagitis, then he may be a candidate for Giovanni procedure to reduce the degree of inflammation. History of colonoscopy EGD - MAC (02/12/18) EGD - MAC (09/25/17) EGD - MAC (03/13/17) Family History Other Diabetes Hyperlipidemia Hypertension Social History Smoking/Tobacco Use Status: Former Tobacco Use Quit Date: 09/21/04 Smoking risk assessment performed?: Yes Alcohol Intake: current Alcohol Intake frequency: a few times a week Alcohol type: beer Drug use: Never Substance use type: does not use Housing: house Do you feel safe at home: Yes Do you feel safe in your relationship?: Yes Meds Allergies and Home Medications Allergies Allergy/AdvReac Type Severity Reaction Status Date / Time No Known Allergies Allergy Verified 09/30/23 12:48 Home Medications Medication Instructions Recorded Confirmed Type sertraline 100 mg tablet 200 mg PO DAILY 09/06/15 09/30/23 History sucralfate 1 gram tablet (Carafate) 1 g PO QID #28 tab-caps 04/02/17 09/30/23 History omeprazole 40 mg capsule,delayed 40 mg PO BID ##60 02/12/18 09/30/23 Rx release naltrexone 50 mg tablet 100 mg PO DAILY 02/25/19 09/30/23 History quetiapine 400 mg tablet (Seroquel) 800 mg PO HS 02/25/19 09/30/23 History cariprazine 6 mg capsule (Vraylar) 6 mg PO DAILY 03/31/19 09/30/23 History cetirizine 10 mg capsule (All Day 10 mg PO DAILY 09/05/20 09/30/23 History Allergy (cetirizine)) hydroxyzine HCl 25 mg tablet 25 mg PO QID PRN 09/05/20 09/30/23 History buspirone 15 mg tablet 30 mg PO BID 05/13/22 09/30/23 History polyethylene glycol 3350 17 17 g PO DAILY 10/21/22 09/30/23 History gram/dose oral powder celecoxib 100 mg capsule (Celebrex) 100 mg PO DAILY 04/29/23 09/30/23 History carbidopa 25 mg-levodopa 100 mg 1 tab PO QID #360 tabs 09/30/23 09/30/23 Rx tablet (Sinemet) topiramate 50 mg tablet 50 mg PO DAILY 09/30/23 09/30/23 History Exam Const General: cooperative, healthy appearing and in distress Nutritional Appearance: average body habitus Orientation: alert, awake and oriented x3 HENMT Head: normal to inspection Neck Neck: normal visual inspection, full ROM and no lymphadenopathy Thyroid: thyroid normal Chest Chest: normal inspection of the chest Resp Effort & Inspection: cough and no tracheal deviation Auscultation: clear to auscultation bilaterally Cardio Rate: regular rate Rhythm: regular rhythm GI Inspection: normal to inspection Palpation: soft, no guarding and nontender Results Labs 10/28/23 18:38 10/28/23 18:38 Labs: Laboratory Results - last 24 hr 10/28/23 18:38 WBC 11.23 H RBC 4.42 Hgb 13.2 L Hct 39.9 L MCV 90 MCH 29.9 MCHC 33.1 RDW 12.9 Plt Count 280 MPV 8.4 Immature Gran % 0.6 Neutrophils % 81.7 Lymphocytes % 12.6 Monocytes % 3.6 Eosinophils % 0.9 Basophils % 0.6 Nucleated RBC % 0.0 Absolute Neutrophils 9.17 H Absolute Lymphocytes 1.41 Absolute Monocytes 0.40 Absolute Eosinophils 0.10 Absolute Basophils 0.07 Sodium 140 Potassium 3.7 Chloride 104 Carbon Dioxide 25.4 Anion Gap 10.6 BUN 6 L Creatinine 0.7 Est GFR (CKD-EPI 2020) 102.89 Glucose 101 Calcium 8.9 Last Vital Signs Temp 97.0 F L 10/28/23 17:42 Pulse 83 10/28/23 17:42 Resp 16 10/28/23 17:42 BP 160/85 H 10/28/23 17:42 Pulse Ox 97 10/28/23 17:42 PAWSS Have you Been Recently Intoxicated or Drunk Within the Last 30 days?: No Have you Ever Experienced Previous Episodes of Alcohol Withdrawal?: No Have you ever Experienced Withdrawal Seizures?: No Have you ever Experienced Delirium Tremens(DT)s?: No Have you ever undergone Alcohol Rehabilitation Treatment (i.e, inpt ot outpatient treatment programs)?: No Have you ever Experienced Blackouts?: No Have you ever Combined Alcohol with other Downers within the last 90 days?: No Have you ever Combined Alcohol with any other Substance of Abuse during the last 90 days?: No Positive Blood Alcohol level on Presentation? [PCS.BAL]: No Evidence of Increased Autonomic Activity (i.e. HR>120, tremor, sweating, agitation, nausea)?: No Result: 0 Time Spent Time spent with Patient: 40-54 minutes Time was spent: preparing to see the patient(eg.review tests), obtaining and/or reviewing separately otained hiistory, referring, communicating with other health medical care evaluation specialist, indepentently interpreting results, counseling the patient and care coordination
--- NOTE | 2023-10-28 19:25 | ANES.PREOP_ITS ---
General Info Date of Service Date Performed: 10/28/23 Height: 5 ft 11 in Weight: 72 kg Body Mass Index (BMI): 22.1 Surgical Procedure: Operation Date: 10/28/23 19:05 Proposed Procedure Side Surgeon p Gastroscopy/Removal Foreign Body Musa Carbajal MD Meds Allergies and Home Medications Allergies Allergy/AdvReac Type Severity Reaction Status Date / Time No Known Allergies Allergy Verified 09/30/23 12:48 Home Medication Medication Instructions Recorded sertraline 100 mg tablet 200 mg PO DAILY 09/06/15 sucralfate 1 gram tablet (Carafate) 1 g PO QID #28 tab-caps 04/02/17 omeprazole 40 mg capsule,delayed 40 mg PO BID ##60 02/12/18 release naltrexone 50 mg tablet 100 mg PO DAILY 02/25/19 quetiapine 400 mg tablet (Seroquel) 800 mg PO HS 02/25/19 cariprazine 6 mg capsule (Vraylar) 6 mg PO DAILY 03/31/19 cetirizine 10 mg capsule (All Day 10 mg PO DAILY 09/05/20 Allergy (cetirizine)) hydroxyzine HCl 25 mg tablet 25 mg PO QID PRN 09/05/20 buspirone 15 mg tablet 30 mg PO BID 05/13/22 polyethylene glycol 3350 17 17 g PO DAILY 10/21/22 gram/dose oral powder celecoxib 100 mg capsule (Celebrex) 100 mg PO DAILY 04/29/23 carbidopa 25 mg-levodopa 100 mg 1 tab PO QID #360 tabs 09/30/23 tablet (Sinemet) topiramate 50 mg tablet 50 mg PO DAILY 09/30/23 PFS Active Problems Active Problems: Problem Status Onset Code Memory deficit R41.3 Dysphagia R13.10 Parkinsonism G20 Tubular adenoma ~10/2020 D36.9 Colon polyp, hyperplastic ~10/2020 K63.5 Esophageal foreign body T18.108A Esophagitis K20.9 Medical History Medical History Alcohol abuse Elevated serum glutamic pyruvic transaminase (SGPT) level Diabetes mellitus, type II History of prediabetes GERD (gastroesophageal reflux disease) COPD (chronic obstructive pulmonary disease) Schizophrenia Hyperlipidemia Surgical History Surgical History History of esophagogastroduodenoscopy (EGD) 05/20/19 Dr Elizabeth Jackson, [facility], If the biopsies do not show eosinophilic esophagitis, then he may be a candidate for Giovanni procedure to reduce the degree of inflammation. History of colonoscopy EGD - MAC (02/12/18) EGD - MAC (09/25/17) EGD - MAC (03/13/17) Tobacco Smoking/Tobacco Use Status: Former Tobacco Use Alcohol Alcohol Intake: current Alcohol intake frequency: a few times a week Alcohol type: beer Substance Use Substance use: Never Substance use type: does not use Vital Signs and Lab Results Vital Signs Most Recent Vital Signs in EMR: Most Recent Vital Signs Temp Pulse Resp BP Pulse Ox 36.1 C L 83 16 160/85 H 97 10/28/23 17:42 10/28/23 17:42 10/28/23 17:42 10/28/23 17:42 10/28/23 17:42 Lab Results 10/28/23 18:38 10/28/23 18:38 Blood Type / Crossmatch: 2 No Data to Display Complete Blood Count: 2 White Blood Count 11.23 10^3/uL (4.4-10.8) H 10/28/23 18:38 Red Blood Count 4.42 10^6/uL (4.36-5.78) 10/28/23 18:38 Hemoglobin 13.2 g/dL (13.5-17.5) L 10/28/23 18:38 Hematocrit 39.9 % (40.0-50.0) L 10/28/23 18:38 Platelet Count 280 10^3/uL (130-400) 10/28/23 18:38 Complete Metabolic Panel: 2 Sodium 140 mmol/L (136-145) 10/28/23 18:38 Potassium 3.7 mmol/L (3.5-5.1) 10/28/23 18:38 Chloride 104 mmol/L (98-107) 10/28/23 18:38 Carbon Dioxide 25.4 mmol/L (21.0-32.0) 10/28/23 18:38 BUN 6 mg/dL (7-18) L 10/28/23 18:38 Creatinine 0.7 mg/dL (0.70-1.30) 10/28/23 18:38 Est GFR (CKD-EPI 2020) 102.89 (mL/min/1.73m2) 10/28/23 18:38 Calcium 8.9 mg/dL (8.5-10.1) 10/28/23 18:38 Glucose 101 mg/dL (74-106) 10/28/23 18:38 Liver Function Panel: 2 No Data to Display Coagulation Panel: 2 No Data to Display Cardiac Panel: 2 No Data to Display Arterial Blood Gas: 2 No Data to Display Venous Blood Gas: 2 No Data to Display Pancreas Panel: 2 No Data to Display Thyroid Panel: 2 No Data to Display Infectious Disease: 2 No Data to Display Blood Cultures: 2 No Data to Display Toxicology Panel: 2 No Data to Display Anesthesia Assessment and Plan Anesthesia History Personal History: No History of Anesthesia Complications Family History: No Family History of Anesthesia Complications Exercise Tolerance Exercise Tolerance: Metabolic Equivalents>4 Pertinent Negatives Pertinent Negatives: Other (esophageal disease) Cardiac & Pulmonary Exam Cardiac Exam: Normal S1/S2 Heart Sounds Pulmonary Exam: Clear Bilateral Breath Sounds Implantable Cardiac Device Does patient have a Pacemaker or an ICD?: No Airway Exam Known Difficult Airway: No Mallampati Class: 2 Mouth Opening: Normal (> 3cm) Thyromental Distance: Greater than 3 cm Neck Range of Motion: Full ROM Neck Circumference: Normal Teeth Condition: Normal Dentition ASA Classification ASA Score: ASA 2 Emergency Case?: Yes NPO Status NPO Status: NPO Clears >2 hours, Solids >8 hours Anesthesia Plan Resuscitation Status: Full Code Anesthesia Technique: General Anesthesia Airway Planned: Endotracheal Tube Monitors Used: Standard Monitors
--- NOTE | 2023-10-28 19:52 | W.PM.ENDDOP ---
Date of service: 10/28/23 Time of Service: 19:53 Endoscopy Report DATE OF PROCEDURE: 10/28/23 PRE-OP DIAGNOSIS: Esophageal retained food bolus POST-OP DIAGNOSIS: same PROCEDURE: EGD with retrieval of retained food bolus SURGEON: Musa Carbajal ANESTHESIA TYPE: General LMA/ETT PATHOLOGY: none sent COMPLICATIONS: None DISPOSITION: floor INDICATIONS: Juanjo is a 63-year-old male was eating dinner when he noticed a sensation of having food stuck in his throat. He had some gagging and retching, and was unable to clear with the assistance of the emergency medicine team. PROCEDURE START TIME: 19:38 PROCEDURE END TIME: 19:45 FINDINGS: Retained food bolus in the upper portion of the esophagus. PROCEDURE DESCRIPTION: After the induction of general endotracheal anesthesia, and with the assistance of a bite-block, I advanced a standard Olympus EGD scope and through the mouth and into the hypopharynx. Glottis was visualized. Scope was directed posteriorly into the upper portion of the esophagus. Just beyond the cricopharyngeus narrowing, there was an obvious food bolus there was occluding a majority of the esophageal lumen. I tried to advance it gently with the scope, but there was some resistance. Therefore, using a endoscopic Juan Luis grasping device, I attempted to secure the food bolus. A small portion of the upper part broke off, and was able to be retrieved out through the mouth. The endoscope was advanced back down to the bolus and, this time, the Juan Luis device was able to grasp the entirety of the bolus. I retrieved it out through the mouth. It was quite large. I then advanced the scope back into the hypopharynx. I traversed the cricopharyngeus without any difficulty into the upper portion of the esophagus. There was a little bit of erythema and irritation where the food bolus had been stuck. I saw no evidence of stricture or web in this location. There was no evidence of any Zenker's diverticulum. I was able to advance the endoscope down through the esophagus proper without any difficulty. There was no resistance. I advanced through the GE junction into the stomach which was gently insufflated. All of this appeared totally normal. I brought the camera out along the length of the esophagus 1 last time. Again, there was some erythema in the upper portion of the esophagus but everything else appeared normal. At that point, I removed the scope, we allowed the patient to wake up from anesthesia and transferred him to the recovery unit.
--- NOTE | 2023-10-28 20:02 | W.PM.DSUDISC ---
Date of service: 10/28/23 Time of Service: 20:02 Discharge Plan Disposition Patient Disposition: Admit to [facility] Condition: Good Discharge Details Clinical Impression: Esophageal foreign body Primary Care Provider: Prasanna Browne ED Provider: Saul Fuller [place] Meds and New Rx's Prescriptions: No Action polyethylene glycol 3350 17 gram/dose powder 17 g PO DAILY celecoxib [Celebrex] 100 mg capsule 100 mg PO DAILY topiramate 50 mg tablet 50 mg PO DAILY carbidopa-levodopa [Sinemet] 25-100 mg tablet 1 tab PO QID Qty: 360 3RF Rx Instructions: Take around 6am, 10am, 2pm, and 6pm (about every 4 hours) sucralfate [Carafate] 1 GM tablet 1 g PO QID Qty: 28 All Day Allergy (cetirizine) 10 mg capsule 10 mg PO DAILY hydroxyzine HCl 25 mg tablet 25 mg PO QID PRN buspirone 15 mg tablet 30 mg PO BID sertraline 100 MG tablet 200 mg PO DAILY quetiapine [Seroquel] 400 mg tablet 800 mg PO HS naltrexone 50 mg tablet 100 mg PO DAILY omeprazole 40 MG capsule,delayed release(DR/EC) 40 mg PO BID Qty: 60 1RF Vraylar 6 mg Capsule 6 mg PO DAILY DS: Diagnosis Discharge Diagnosis (1) Esophageal foreign body: Status: Acute Asessment and Plan: Status post endoscopic retrieval Follow-up with primary care physician
--- NOTE | 2023-10-28 20:05 | W.PM.DS.N ---
Date of service: 10/28/23 Time of Service: 20:05 DS: Diagnosis Discharge Diagnosis (1) Esophageal foreign body: Status: Acute Discharge Plan Disposition Patient Disposition: Home Condition: Good Discharge Details Clinical Impression: Esophageal foreign body Primary Care Provider: Prasanna Browne ED Provider: Saul Fuller Home Meds and New Rx's Prescriptions: Continued polyethylene glycol 3350 17 gram/dose powder 17 g PO DAILY celecoxib [Celebrex] 100 mg capsule 100 mg PO DAILY topiramate 50 mg tablet 50 mg PO DAILY carbidopa-levodopa [Sinemet] 25-100 mg tablet 1 tab PO QID Qty: 360 3RF Rx Instructions: Take around 6am, 10am, 2pm, and 6pm (about every 4 hours) sucralfate [Carafate] 1 GM tablet 1 g PO QID Qty: 28 All Day Allergy (cetirizine) 10 mg capsule 10 mg PO DAILY hydroxyzine HCl 25 mg tablet 25 mg PO QID PRN buspirone 15 mg tablet 30 mg PO BID sertraline 100 MG tablet 200 mg PO DAILY quetiapine [Seroquel] 400 mg tablet 800 mg PO HS naltrexone 50 mg tablet 100 mg PO DAILY omeprazole 40 MG capsule,delayed release(DR/EC) 40 mg PO BID Qty: 60 1RF Vraylar 6 mg Capsule 6 mg PO DAILY Discharge Instructions Instructions: Esophageal Foreign Body (GEN), Aspiration Precautions (GEN) Additional Instructions: Juanjo, we were able to retrieve the foreign body from your throat without any difficulty today. I suspect that the reason it got stuck with some difficulty with swallowing combined with the fact that the food itself was still quite large. I did not see any abnormalities of the esophagus that caused it to get stuck. I would like you to stick with a liquid diet over the next 48 hours to make sure that your swallowing feels back to normal. You may have a sore throat over the next few days. I would encourage you to use things like Chloraseptic spray to help with discomfort. Warm liquids such as tea, or cold things such as popsicles or ice creams may also provide some relief. Assuming you are able to swallow normal after 48 hours, you could advance her diet back to regular food, but I would encourage you to cut it into pieces that are no larger than a sugar cube, and you should be very careful to chew the food completely before you initiate swallowing. I also recommend that you follow-up with your primary care doctor, or Dr. Evans for reconsideration of a consultation with a speech and swallow therapist. If you need anything at all, or have any questions, please do not hesitate to call the [facility] at any time. Discharge Data Discharge Physician: Musa Carbajal DS: Summary Time Spent with Patient providing and/or coordinating discharge services: Less than 30 minutes Status at Discharge Functional status at discharge: independent ambulation Overall status at discharge: patient is back to baseline Mental Status: mental status grossly normal Speech and Movement: speech and movement normal Mood: congruent mood Affect: normal affect Quality:SDOH Health Related Social Needs: No Data to Display Exam Neck Other: Neck is soft and supple. GI Other: Abdomen soft and nondistended Psych Mental Status: mental status grossly normal Speech and Movement: speech and movement normal Mood: congruent mood Affect: normal affect DS: Data Vitals/I&O Vitals and I&O: Vital Signs Temperature 97.8 F 10/28/23 19:15 Temperature Source Skin 10/28/23 17:42 Pulse 81 10/28/23 19:15 Respiratory Rate 21 10/28/23 19:15 Respiratory Effort Normal, Non-Labored 10/28/23 17:52 Respiratory Pattern Normal 10/28/23 17:52 Blood Pressure 149/69 H 10/28/23 19:15 Blood Pressure Position Sitting 10/28/23 17:42 Pulse Oximetry 99 10/28/23 19:15 Oxygen Delivery Method Room Air 10/28/23 17:42 Oxygen Flow Rate 0 10/28/23 17:42 Intake & Output 10/27/23 10/28/23 10/28/23 23:59 11:59 23:59 Weight 158 lb 11.725 oz Data Completed and Pending Labs on day of discharge: Labs from last 24 hours 10/28/23 18:38 WBC 11.23 H RBC 4.42 Hgb 13.2 L Hct 39.9 L MCV 90 MCH 29.9 MCHC 33.1 RDW 12.9 Plt Count 280 MPV 8.4 Immature Gran % 0.6 Neutrophils % 81.7 Lymphocytes % 12.6 Monocytes % 3.6 Eosinophils % 0.9 Basophils % 0.6 Nucleated RBC % 0.0 Absolute Neutrophils 9.17 H Absolute Lymphocytes 1.41 Absolute Monocytes 0.40 Absolute Eosinophils 0.10 Absolute Basophils 0.07 Sodium 140 Potassium 3.7 Chloride 104 Carbon Dioxide 25.4 Anion Gap 10.6 BUN 6 L Creatinine 0.7 Est GFR (CKD-EPI 2020) 102.89 Glucose 101 Calcium 8.9 PFSH All Active Problems Memory deficit (Acute) Dysphagia (Acute) Parkinsonism (Acute) Tubular adenoma (Acute ~10/2020) Colon polyp, hyperplastic (Acute ~10/2020) Esophageal foreign body (Acute) Esophagitis (Acute) Medical History Alcohol abuse Elevated serum glutamic pyruvic transaminase (SGPT) level Diabetes mellitus, type II History of prediabetes GERD (gastroesophageal reflux disease) COPD (chronic obstructive pulmonary disease) Schizophrenia Hyperlipidemia Surgical History History of esophagogastroduodenoscopy (EGD) 05/20/19 Dr Elizabeth Jackson, [facility], If the biopsies do not show eosinophilic esophagitis, then he may be a candidate for Giovanni procedure to reduce the degree of inflammation. History of colonoscopy EGD - MAC (02/12/18) EGD - MAC (09/25/17) EGD - MAC (03/13/17) Family History Other Diabetes Hyperlipidemia Hypertension Social History Smoking/Tobacco Use Status: Former Tobacco Use Quit Date: 09/21/04 Smoking risk assessment performed?: Yes Alcohol Intake: current Alcohol Intake frequency: a few times a week Alcohol type: beer Drug use: Never Substance use type: does not use Housing: house Do you feel safe at home: Yes Do you feel safe in your relationship?: Yes Time Spent with Patient Time Spent with Patient: <45 minutes Time was spent: counseling the patient and care coordination
--- NOTE | 2023-10-28 20:09 | W.ANESPOSTOP ---
Postoperative Evaluation Date, Time and Location Date Performed: 10/28/23 Time Performed: 20:10 Patient Location: PACU Vital Signs Most Recent Imported Vital Signs: Most Recent Vital Signs Temp Pulse Resp BP Pulse Ox 36.6 C 70 16 104/65 96 10/28/23 20:01 10/28/23 20:01 10/28/23 20:01 10/28/23 20:10/28/23 20:01 Assessment Mental Status: Awake (Alert & Oriented to Patient Baseline) Airway and Respiratory Function: Patent airway with normal (patient baseline) respiratory exam Cardiovascular Function: Hemodynamically Stable Hydration Status: Adequately Hydrated Nausea & Vomiting: No Nausea or Vomiting Pain: Pt. Denies Any Pain Peripheral Nerve Block: Patient did not receive a nerve block
== END 2023-10-28 20:57 | disposition home or self-care (01) ==
LOC: ER 20:14 → MS 20:31
PROVIDERS: Surgery; Emergency Provider Emergency Medicine; PCP Physician Assistant
PROC: 0DC68ZZ Extirpation of Matter from Stomach, Via Natural or Artificial Opening Endoscopic (ICD-10-PCS; CPT 43247; principal; 2023-10-28 19:05)
DX: T18.128A Food in esophagus causing other injury, initial encounter (principal); E11.9 Type 2 diabetes mellitus without complications; J44.9 Chronic obstructive pulmonary disease, unspecified; G20.C Parkinsonism, unspecified; Z87.891 Personal history of nicotine dependence
CPT/HCPCS: 80048; 96360; 99284; 85025; J0330; J1100; J2001; J2405; J2704

== ENCOUNTER 2024-01-28 17:57 | Day surgery (SDC) | payer OTHER, MEDICAID, SELFPAY ==
[2024-01-28] VITALS (7 sets, daily range): BP systolic 105–142; BP diastolic 62–67; PULSE 61–76; RESP 16–26; TEMP 36.1–36.9; O2SAT 95–99; BMI 22.6
--- NOTE | 2024-01-28 18:13 | ED.GENADUL_ITS ---
Discharge Plan Disposition Patient Disposition: Admit to [facility] Condition: Fair Discharge Details Clinical Impression: Esophageal foreign body Primary Care Provider: Prasanna Browne ED Provider: Neda Barron Home Meds and New Rx's Prescriptions: No Action polyethylene glycol 3350 17 gram/dose powder 17 g PO DAILY celecoxib [Celebrex] 100 mg capsule 100 mg PO DAILY topiramate 50 mg tablet 50 mg PO DAILY carbidopa-levodopa [Sinemet] 25-100 mg tablet 1 tab PO QID Qty: 360 3RF Rx Instructions: Take around 6am, 10am, 2pm, and 6pm (about every 4 hours) sucralfate [Carafate] 1 GM tablet 1 g PO QID Qty: 28 All Day Allergy (cetirizine) 10 mg capsule 10 mg PO DAILY hydroxyzine HCl 25 mg tablet 25 mg PO QID PRN buspirone 15 mg tablet 30 mg PO BID sertraline 100 MG tablet 200 mg PO DAILY quetiapine [Seroquel] 400 mg tablet 800 mg PO HS naltrexone 50 mg tablet 100 mg PO DAILY omeprazole 40 MG capsule,delayed release(DR/EC) 40 mg PO BID Qty: 60 1RF Vraylar 6 mg Capsule 6 mg PO DAILY HPI General Date/Time Provider Initiated Documentation: 01/28/24 18:01 . Limitations to Documentation: physical limitation . Information obtained by: patient . HPI Narrative: 63-year-old gentleman with past medical history of Parkinson's disease and prior esophageal food bolus presents for evaluation of difficulty swallowing. He reports that about 1 hour ago he had some beef stew. He reports that a piece of the beef is in his throat and he cannot pass it. He reports that he keeps regurgitating and he is unable to swallow his spit. He reports that this has happened to him multiple times in the past. His last endoscopy was about a year ago. Related Data Home Medications Medication Instructions Recorded Confirmed sertraline 100 mg tablet 200 mg PO DAILY 09/06/15 01/28/24 sucralfate 1 gram tablet (Carafate) 1 g PO QID #28 tab-caps 04/02/17 01/28/24 omeprazole 40 mg capsule,delayed 40 mg PO BID ##60 02/12/18 01/28/24 release naltrexone 50 mg tablet 100 mg PO DAILY 02/25/19 01/28/24 quetiapine 400 mg tablet (Seroquel) 800 mg PO HS 02/25/19 01/28/24 cariprazine 6 mg capsule (Vraylar) 6 mg PO DAILY 03/31/19 01/28/24 cetirizine 10 mg capsule (All Day 10 mg PO DAILY 09/05/20 01/28/24 Allergy (cetirizine)) hydroxyzine HCl 25 mg tablet 25 mg PO QID PRN 09/05/20 01/28/24 buspirone 15 mg tablet 30 mg PO BID 05/13/22 01/28/24 polyethylene glycol 3350 17 17 g PO DAILY 10/21/22 01/28/24 gram/dose oral powder celecoxib 100 mg capsule (Celebrex) 100 mg PO DAILY 04/29/23 01/28/24 carbidopa 25 mg-levodopa 100 mg 1 tab PO QID #360 tabs 09/30/23 01/28/24 tablet (Sinemet) topiramate 50 mg tablet 50 mg PO DAILY 09/30/23 01/28/24 Previous Rx's Medication Instructions Recorded omeprazole 40 mg capsule,delayed 40 mg PO BID ##60 02/12/18 release carbidopa 25 mg-levodopa 100 mg 1 tab PO QID #360 tabs 09/30/23 tablet (Sinemet) Allergies Allergy/AdvReac Type Severity Reaction Status Date / Time No Known Allergies Allergy Verified 01/28/24 18:03 General Stated Complaint: Abd Prob GENEVIEVE: 3 Exam Narrative Exam Narrative: Review of Systems: All systems reviewed & are unremarkable except as noted in HPI and below Well-developed, + acute distress NCAT Actively regurgitating, not tolerating secretions PERRL, normal conjunctiva RRR Unlabored respiratory effort, no respiratory distress Nondistended abdomen Extremities w/o deformity, no cyanosis, no edema No rashes or lesions. no focal neurologic deficits Appropriate mood and affect Course Vital Signs Vital signs: Vital Signs Temperature 36.1 C L 01/28/24 18:04 Pulse 76 01/28/24 18:04 Respiratory Rate 16 01/28/24 18:04 Blood Pressure 142/62 H 01/28/24 18:04 Pulse Oximetry 99 01/28/24 18:04 Temperature 36.1 C L 01/28/24 18:04 Temperature Source Temporal Artery Scan 01/28/24 18:04 Pulse 76 01/28/24 18:04 Respiratory Rate 16 01/28/24 18:04 Respiratory Effort Normal, Non-Labored 01/28/24 18:07 Blood Pressure 142/62 H 01/28/24 18:04 Blood Pressure Position Sitting 01/28/24 18:04 Pulse Oximetry 99 01/28/24 18:04 Oxygen Delivery Method Room Air 01/28/24 18:04 Oxygen Flow Rate 0 01/28/24 18:04 Pain Level 9 01/28/24 18:04 Medical Decision Making Emergent evaluation of esophageal food bolus. Patient has had this multiple times before and is supposed to be on thin liquids. Patient has had symptoms for an hour and they are not improving. He is not able to tolerate his secretions at this time. No respiratory distress at this time. Given his history and significance of symptoms, general surgery will take for endoscopy. Medical Records Medical records reviewed: Yes I reviewed the patient's medical records. Quality:SDOH Health Related Social Needs: No Data to Display COUNTS INCLUDE 234 BEDS AT THE [facility] All Active Problems (Updated 01/28/24 @ 19:16 by Neda Barron MD) Memory deficit (Acute) Dysphagia (Acute) Parkinsonism (Acute) Tubular adenoma (Acute ~10/2020) Colon polyp, hyperplastic (Acute ~10/2020) Esophageal foreign body (Acute) Esophagitis (Acute) Medical History Alcohol abuse Elevated serum glutamic pyruvic transaminase (SGPT) level Diabetes mellitus, type II History of prediabetes GERD (gastroesophageal reflux disease) COPD (chronic obstructive pulmonary disease) Schizophrenia Hyperlipidemia Surgical History History of esophagogastroduodenoscopy (EGD) 05/20/19 Dr Elizabeth Jackson, [facility], If the biopsies do not show eosinophilic esophagitis, then he may be a candidate for Giovanni procedure to reduce the degree of inflammation. History of colonoscopy EGD - MAC (02/12/18) EGD - MAC (09/25/17) EGD - MAC (03/13/17) Family History Other Diabetes Hyperlipidemia Hypertension Social History Smoking/Tobacco Use Status: Former Tobacco Use Quit Date: 09/21/04 Smoking risk assessment performed?: Yes Alcohol Intake: current Alcohol Intake frequency: a few times a week Alcohol type: beer Drug use: Never Substance use type: does not use Housing: house Do you feel safe at home: Yes Do you feel safe in your relationship?: Yes
--- NOTE | 2024-01-28 18:56 | W.PM.HP.N ---
Date of service: 01/28/24 Time of Service: 18:56 Assessment and Plan Assessment and plan (1) Esophageal foreign body: Status: Acute Assessment and plan: I saw Juanjo in October of this year when he had a large retained food bolus at that time. Clinical presentation is nearly identical. He is able to spit up his secretions and seems to be keeping his airway clear at this point, but he does have coughing and some retching with any attempt to intentionally swallow. All of this seems consistent with another retained food bolus. Will make arrangements to proceed to the operating room for EGD as soon as possible. Qualifiers: Encounter type: initial encounter Qualified Code(s): T18.108A - Unspecified foreign body in esophagus causing other injury, initial encounter History of Present Illness History of Present Illness Chief Complaint: Dysphagia Narrative: Juanjo is 63 years old. His History is most significant for Parkinson's disease and schizophrenia. He is known to have swallowing dysfunction, and has had multiple hospital encounters for retained food bolus that required EGD to clear the esophagus. He is back in the emergency department tonight. He reports he was attempting to eat some kind of beef stew approximately 1 hour before presentation. During the course of swallowing, he noticed a sensation that the food was stuck, and immediately had pain, and difficulty with his secretions. He came directly to the emergency department, and attempts to clear the food bolus there have been unsuccessful. Review of Systems Constitutional Constitutional: Reports system reviewed and no additional complaints, except as documented Eyes Eyes: Reports system reviewed and no additional complaints, except as documented ENT Ears, Nose, Mouth, and Throat: Reports system reviewed and no additional complaints, except as documented, Denies change in voice, Reports dysphagia, Denies hoarseness and Reports odynophagia Cardiovascular Cardiovascular: Denies chest pain and Denies dyspnea Respiratory Respiratory: Reports cough and Denies dyspnea Gastrointestinal Gastrointestinal: Denies abdominal pain, Reports dysphagia and Reports odynophagia Comments: Retching without overt nausea Musculoskeletal Musculoskeletal: Reports system reviewed and no additional complaints, except as documented Neurologic Neurologic: Denies behavioral changes and Reports confusion Psychiatric Psychiatric: Denies behavioral changes and Reports confusion Hematologic/Lymphatic Hematologic/Lymphatic: Denies easy bleeding and Denies easy bruising PFSH All Active Problems Memory deficit (Acute) Dysphagia (Acute) Parkinsonism (Acute) Tubular adenoma (Acute ~10/2020) Colon polyp, hyperplastic (Acute ~10/2020) Esophageal foreign body (Acute) Esophagitis (Acute) Medical History Alcohol abuse Elevated serum glutamic pyruvic transaminase (SGPT) level Diabetes mellitus, type II History of prediabetes GERD (gastroesophageal reflux disease) COPD (chronic obstructive pulmonary disease) Schizophrenia Hyperlipidemia Surgical History History of esophagogastroduodenoscopy (EGD) 05/20/19 Dr Elizabeth Jackson, [facility], If the biopsies do not show eosinophilic esophagitis, then he may be a candidate for Giovanni procedure to reduce the degree of inflammation. History of colonoscopy EGD - MAC (02/12/18) EGD - MAC (09/25/17) EGD - MAC (03/13/17) Family History Other Diabetes Hyperlipidemia Hypertension Social History Smoking/Tobacco Use Status: Former Tobacco Use Quit Date: 09/21/04 Smoking risk assessment performed?: Yes Alcohol Intake: current Alcohol Intake frequency: a few times a week Alcohol type: beer Drug use: Never Substance use type: does not use Housing: house Do you feel safe at home: Yes Do you feel safe in your relationship?: Yes Meds Allergies and Home Medications Allergies Allergy/AdvReac Type Severity Reaction Status Date / Time No Known Allergies Allergy Verified 01/28/24 18:03 Home Medications Medication Instructions Recorded Confirmed Type sertraline 100 mg tablet 200 mg PO DAILY 09/06/15 01/28/24 History sucralfate 1 gram tablet (Carafate) 1 g PO QID #28 tab-caps 04/02/17 01/28/24 History omeprazole 40 mg capsule,delayed 40 mg PO BID ##60 02/12/18 01/28/24 Rx release naltrexone 50 mg tablet 100 mg PO DAILY 02/25/19 01/28/24 History quetiapine 400 mg tablet (Seroquel) 800 mg PO HS 02/25/19 01/28/24 History cariprazine 6 mg capsule (Vraylar) 6 mg PO DAILY 03/31/19 01/28/24 History cetirizine 10 mg capsule (All Day 10 mg PO DAILY 09/05/20 01/28/24 History Allergy (cetirizine)) hydroxyzine HCl 25 mg tablet 25 mg PO QID PRN 09/05/20 01/28/24 History buspirone 15 mg tablet 30 mg PO BID 05/13/22 01/28/24 History polyethylene glycol 3350 17 17 g PO DAILY 10/21/22 01/28/24 History gram/dose oral powder celecoxib 100 mg capsule (Celebrex) 100 mg PO DAILY 04/29/23 01/28/24 History carbidopa 25 mg-levodopa 100 mg 1 tab PO QID #360 tabs 09/30/23 01/28/24 Rx tablet (Sinemet) topiramate 50 mg tablet 50 mg PO DAILY 09/30/23 01/28/24 History Exam Const General: cooperative and in distress mild; not respiratory Nutritional Appearance: thin Orientation: alert, awake and oriented x3 HENMT Head: normal to inspection Mouth: oral mucosae normal, moist mucous membranes abnormal, breath no malodorous and muffled voice Teeth and gingiva: poor dentition Throat: uvula midline and no peritonsillar masses Eyes General: appearance normal, both eyes and all related structures Neck Neck: normal visual inspection, full ROM, lymphadenopathy noted, trachea midline, supple and nontender Resp Effort & Inspection: normal respiratory effort and not able to speak in complete sentences Auscultation: bronchial breath sounds Cardio Rate: regular rate Rhythm: regular rhythm Heart Sounds: S1 normal and S2 normal GI Inspection: normal to inspection Palpation: soft and no guarding Results Last Vital Signs Temp 97.0 F L 01/28/24 18:04 Pulse 76 01/28/24 18:04 Resp 16 01/28/24 18:04 BP 142/62 H 01/28/24 18:04 Pulse Ox 99 01/28/24 18:04 Time Spent Time spent with Patient: <40 minutes Time was spent: referring, communicating with other health caregivers homecare, indepentently interpreting results, counseling the patient and care coordination
[2024-01-28] MEDS: Lactated Ringers 1,000 ML 30 ML IV (19:30)
--- NOTE | 2024-01-28 19:43 | W.ANESPRE ---
General Info Date of Service Date Performed: 01/28/24 Height: 5 ft 10 in Weight: 71.668 kg Body Mass Index (BMI): 22.6 Surgical Procedure: Operation Date: 01/28/24 19:30 Proposed Procedure Side Surgeon p Gastroscopy/Removal Foreign Body Musa Carbajal MD Meds Allergies and Home Medications Allergies Allergy/AdvReac Type Severity Reaction Status Date / Time No Known Allergies Allergy Verified 01/28/24 18:03 Home Medication Medication Instructions Recorded sertraline 100 mg tablet 200 mg PO DAILY 09/06/15 sucralfate 1 gram tablet (Carafate) 1 g PO QID #28 tab-caps 04/02/17 omeprazole 40 mg capsule,delayed 40 mg PO BID ##60 02/12/18 release naltrexone 50 mg tablet 100 mg PO DAILY 02/25/19 quetiapine 400 mg tablet (Seroquel) 800 mg PO HS 02/25/19 cariprazine 6 mg capsule (Vraylar) 6 mg PO DAILY 03/31/19 cetirizine 10 mg capsule (All Day 10 mg PO DAILY 09/05/20 Allergy (cetirizine)) hydroxyzine HCl 25 mg tablet 25 mg PO QID PRN 09/05/20 buspirone 15 mg tablet 30 mg PO BID 05/13/22 polyethylene glycol 3350 17 17 g PO DAILY 10/21/22 gram/dose oral powder celecoxib 100 mg capsule (Celebrex) 100 mg PO DAILY 04/29/23 carbidopa 25 mg-levodopa 100 mg 1 tab PO QID #360 tabs 09/30/23 tablet (Sinemet) topiramate 50 mg tablet 50 mg PO DAILY 09/30/23 Current Visit Medications: Current Medications Generic Name Dose Route Start Last Admin Trade Name Freq PRN Reason Stop Dose Admin IV Miscellaneous Supplies 1 each 01/28/24 18:15 Iv Access-Emergency Dept IV DIRECTED ERIBERTO Sodium Chloride 0 ml 01/28/24 18:11 Normal Saline Flush 10 Ml Syr IVP PRN PRN Sodium Chloride 0 ml 01/28/24 20:00 Normal Saline Flush 10 Ml Syr IVP BID ERIBERTO Sodium Chloride 0 ml 01/28/24 18:11 Normal Saline 10 Ml Vial IJ DIRECTED PRN PFSH Active Problems Active Problems: Problem Status Onset Code Memory deficit R41.3 Dysphagia R13.10 Parkinsonism G20 Tubular adenoma ~10/2020 D36.9 Colon polyp, hyperplastic ~10/2020 K63.5 Esophageal foreign body T18.108A Esophagitis K20.9 Medical History Medical History Alcohol abuse Elevated serum glutamic pyruvic transaminase (SGPT) level Diabetes mellitus, type II History of prediabetes GERD (gastroesophageal reflux disease) COPD (chronic obstructive pulmonary disease) Schizophrenia Hyperlipidemia Surgical History Surgical History History of esophagogastroduodenoscopy (EGD) 05/20/19 Dr Elizabeth Jackson, [facility], If the biopsies do not show eosinophilic esophagitis, then he may be a candidate for Giovanni procedure to reduce the degree of inflammation. History of colonoscopy EGD - MAC (02/12/18) EGD - MAC (09/25/17) EGD - MAC (03/13/17) Tobacco Smoking/Tobacco Use Status: Former Tobacco Use Alcohol Alcohol Intake: current Alcohol intake frequency: a few times a week Alcohol type: beer Substance Use Substance use: Never Substance use type: does not use Vital Signs and Lab Results Vital Signs Most Recent Vital Signs in EMR: Most Recent Vital Signs Temp Pulse Resp BP Pulse Ox 36.1 C L 76 18 142/62 H 98 01/28/24 18:04 01/28/24 18:04 01/28/24 19:40 01/28/24 18:04 01/28/24 19:40 Vital Signs Comment Vital Signs Comment:: Temp Pulse Resp BP Pulse Ox 36.1 C L 76 18 142/62 H 98 01/28/24 18:04 01/28/24 18:04 01/28/24 19:40 01/28/24 18:04 01/28/24 19:40 Point of Care Results Point of Care Results: Finger Stick Blood Glucose 93 01/28/24 19:13 Lab Results Blood Type / Crossmatch: No Data to Display Complete Blood Count: No Data to Display Complete Metabolic Panel: No Data to Display Liver Function Panel: No Data to Display Coagulation Panel: No Data to Display Cardiac Panel: No Data to Display Arterial Blood Gas: No Data to Display Venous Blood Gas: No Data to Display Pancreas Panel: No Data to Display Thyroid Panel: No Data to Display Infectious Disease: No Data to Display Blood Cultures: No Data to Display Toxicology Panel: No Data to Display Anesthesia Assessment and Plan Anesthesia History Personal History: No History of Anesthesia Complications Family History: No Family History of Anesthesia Complications Exercise Tolerance Exercise Tolerance: Metabolic Equivalents>4 Pertinent Negatives Pertinent Negatives: No Major Cardiovascular Symptoms or Complaints and No Major Pulmonary Symptoms or Complaints Cardiac & Pulmonary Exam Cardiac Exam: Normal S1/S2 Heart Sounds Pulmonary Exam: Clear Bilateral Breath Sounds Implantable Cardiac Device Does patient have a Pacemaker or an ICD?: No Airway Exam Known Difficult Airway: No Mallampati Class: 2 Mouth Opening: Normal (> 3cm) Thyromental Distance: Greater than 3 cm Neck Range of Motion: Full ROM Neck Circumference: Normal Teeth Condition: Generalized Poor Dentition (none loose) ASA Classification ASA Score: ASA 3 Emergency Case?: Yes NPO Status NPO Status: Full Stomach Anesthesia Plan Resuscitation Status: Full Code Anesthesia Technique: General Anesthesia Airway Planned: Endotracheal Tube Monitors Used: Standard Monitors
--- NOTE | 2024-01-28 20:09 | W.PM.OP ---
Date of service: 01/28/24 Time of Service: 20:09 Operative Note Operative Note DATE OF PROCEDURE: 01/28/24 PRE-OP DIAGNOSIS: Esophageal retained food bolus POST-OP DIAGNOSIS: same PROCEDURE: EGD with retrieval of retained esophageal food bolus SURGEON: Musa Carbajal ANESTHESIA TYPE: General LMA/ETT Refer to Anesthesia Record ESTIMATED BLOOD LOSS: 0 PATHOLOGY: none sent COMPLICATIONS: None Patient was transported to: PACU Patient's condition: stable Indications: Juanjo is a 63-year-old male with dysphagia and a retained esophageal food bolus Findings: Retained food bolus in the proximal third of the esophagus consistent with meat Procedure Description: After the initiation of general endotracheal anesthesia, I advanced a standard gastroscope through the mouth past the hypopharynx and into the esophagus.? Under the direct vision of the scope, I advanced down into the esophagus.? Within the first third of the esophagus I encountered a large food bolus that appeared consistent with meat. An endoscopic Juan Luis grasper was used to secure it, and it gently withdrawn retrograde through the hypopharynx and out the mouth. I then reintroduced the camera back into the esophagus. The remainder the esophagus was clear, and I could advance the scope down easily into the stomach. I performed retroflexion. There was no evidence of any hiatal hernia. There was some partially digested food product within the stomach proper. I brought the camera back up to the GE junction. This was normal and healthy appearing. I did not see any evidence of strictures or webs distally. The camera was then slowly withdrawn along the length of the esophagus. The middle portion of the esophagus was normal and healthy appearing. Again, within the first third of the esophagus was the area where the food bolus had been stuck. There were no strictures or webs here. There was a little bit of erythema of the mucosa, as well as a small longitudinal laceration of the mucosa. It was less than 1 cm, and not bleeding. I did not see any evidence of any exposed muscularis. The camera was advanced back down along the length of the esophagus, and the esophagus was emptied of the insufflated air. I then withdrew the camera out through the hypopharynx, the patient was allowed to wake from anesthesia and extubated before transfer to the recovery unit.
--- NOTE | 2024-01-28 20:23 | W.ANESPOSTOP ---
Postoperative Evaluation Date, Time and Location Date Performed: 01/28/24 Time Performed: 20:23 Patient Location: PACU Vital Signs Most Recent Imported Vital Signs: Most Recent Vital Signs Temp Pulse Resp BP Pulse Ox 36.8 C 63 18 114/66 96 01/28/24 20:19 01/28/24 20:19 01/28/24 20:19 01/28/24 20:19 01/28/24 20:19 Pain Score Most Recent Pain Score: Most Recent Pain Score Pain Level 9 01/28/24 18:04 Assessment Mental Status: Awake (Alert & Oriented to Patient Baseline) Airway and Respiratory Function: Patent airway with normal (patient baseline) respiratory exam Cardiovascular Function: Hemodynamically Stable Hydration Status: Adequately Hydrated Nausea & Vomiting: No Nausea or Vomiting Pain: Pt. Denies Any Pain Peripheral Nerve Block: Patient did not receive a nerve block
--- NOTE | 2024-01-28 20:30 | W.PM.DSUDISC ---
Date of service: 01/28/24 Time of Service: 20:30 Discharge Plan Disposition Patient Disposition: Home Condition: Good Discharge Details Reason For Visit: throat pain, respiratory Attending Provider: Musa Carbajal Primary Care Provider: Prasanna Browne Home Meds and New Rx's Prescriptions: Continued polyethylene glycol 3350 17 gram/dose powder 17 g PO DAILY celecoxib [Celebrex] 100 mg capsule 100 mg PO DAILY topiramate 50 mg tablet 50 mg PO DAILY carbidopa-levodopa [Sinemet] 25-100 mg tablet 1 tab PO QID Qty: 360 3RF Rx Instructions: Take around 6am, 10am, 2pm, and 6pm (about every 4 hours) sucralfate [Carafate] 1 GM tablet 1 g PO QID Qty: 28 All Day Allergy (cetirizine) 10 mg capsule 10 mg PO DAILY hydroxyzine HCl 25 mg tablet 25 mg PO QID PRN buspirone 15 mg tablet 30 mg PO BID sertraline 100 MG tablet 200 mg PO DAILY quetiapine [Seroquel] 400 mg tablet 800 mg PO HS naltrexone 50 mg tablet 100 mg PO DAILY omeprazole 40 MG capsule,delayed release(DR/EC) 40 mg PO BID Qty: 60 1RF Vraylar 6 mg Capsule 6 mg PO DAILY Discharge Instructions Instructions: Esophageal Foreign Body (GEN), Level 1 National Dysphagia Diet (DC), Upper Endoscopy (DC) Additional Instructions: Juanjo, I was sorry to see you back in the hospital with food stuck in your throat again. Although I am quite pleased that you did meet with a speech and swallow specialist. I would encourage you to follow-up with them once again, and work to complete all of the recommendations that they have provided. Similar to last time, you may experience a little bit of a sore throat in the days to come after doing the EGD procedure. Throat sprays like Chloraseptic might be helpful. And just like last time, I would encourage you to have just a liquid diet for about 48 hours to make sure that your swallowing is comfortable and does not cause any problems. I did attach some information here about National dysphagia diet. I included level 1, which is the most basic, and should be the simplest to swallow. As mentioned above, I think speech and swallow would offer the best expertise regarding things that we will be more comfortable for you. But this will serve as a good starting point. If you have any questions at all, or need anything, please do not hesitate to call my office. Otherwise, would recommend that you follow-up with your primary care physician, as well as the speech and swallow team. Activity:: Activity as Tolerated Diet:: Dysphagia diet DS: Diagnosis Discharge Diagnosis (1) Esophageal foreign body: Status: Acute Asessment and Plan: Status post EGD with retrieval of food bolus
== END 2024-01-28 22:53 | disposition home or self-care (01) ==
LOC: ER 19:16 → SUR 19:39 → MS 20:36
PROVIDERS: Emergency Provider Emergency Medicine; PCP Physician Assistant; Visit Provider Surgery
PROC: 0DC68ZZ Extirpation of Matter from Stomach, Via Natural or Artificial Opening Endoscopic (ICD-10-PCS; CPT 43247; principal; 2024-01-28 19:30)
DX: T18.108A Unspecified foreign body in esophagus causing other injury, initial encounter (principal); K20.90 Esophagitis, unspecified without bleeding; R13.14 Dysphagia, pharyngoesophageal phase
CPT/HCPCS: 43247; G0378; J1100; J2405; J2704

== ENCOUNTER 2024-02-24 16:17 | Emergency (ER) | payer OTHER, MEDICAID, SELFPAY ==
[2024-02-24 16:19] VITALS: BP 155/90; PULSE 78; RESP 15; TEMP 36; O2SAT 98
--- NOTE | 2024-02-24 16:19 | ED.GENADUL_ITS ---
Discharge Plan Disposition Patient Disposition: Home Condition: Good Discharge Details Clinical Impression: Esophageal foreign body Primary Care Provider: Prasanna Browne ED Provider: Sohan Rushing [place] Meds and New Rx's Prescriptions: Continued polyethylene glycol 3350 17 gram/dose powder 17 g PO DAILY celecoxib [Celebrex] 100 mg capsule 100 mg PO DAILY topiramate 50 mg tablet 50 mg PO DAILY carbidopa-levodopa [Sinemet] 25-100 mg tablet 1 tab PO QID Qty: 360 3RF Rx Instructions: Take around 6am, 10am, 2pm, and 6pm (about every 4 hours) sucralfate [Carafate] 1 GM tablet 1 g PO QID Qty: 28 All Day Allergy (cetirizine) 10 mg capsule 10 mg PO DAILY hydroxyzine HCl 25 mg tablet 25 mg PO QID PRN buspirone 15 mg tablet 30 mg PO BID sertraline 100 MG tablet 200 mg PO DAILY quetiapine [Seroquel] 400 mg tablet 800 mg PO HS naltrexone 50 mg tablet 100 mg PO DAILY omeprazole 40 MG capsule,delayed release(DR/EC) 40 mg PO BID Qty: 60 1RF Vraylar 6 mg Capsule 6 mg PO DAILY Discharge Instructions Additional Instructions: You were seen for esophageal foreign body which likely passed with use of effervescent and gravity. Please remember to cut your food into small pieces and chew carefully. Follow-up with primary care as needed. Return to ED for problems. HPI General Mode of arrival: ambulatory . Date/Time Provider Initiated Documentation: 02/24/24 16:19 . Limitations to Documentation: no limitations . Information obtained by: patient, RN notes reviewed and old records reviewed . HPI Narrative: Patient presents to ED with a piece of steak stuck in his throat, relatively high up according to him. Has history of same with multiple endoscopies. He was eating cube steak about 45 minutes ago when it became lodged in his throat. He denies any difficulty breathing. Has some upper chest discomfort/foreign body sensation. Was well prior to this event. Related Data Home Medications Medication Instructions Recorded Confirmed sertraline 100 mg tablet 200 mg PO DAILY 09/06/15 02/24/24 sucralfate 1 gram tablet (Carafate) 1 g PO QID #28 tab-caps 04/02/17 02/24/24 omeprazole 40 mg capsule,delayed 40 mg PO BID ##60 02/12/18 02/24/24 release naltrexone 50 mg tablet 100 mg PO DAILY 02/25/19 02/24/24 quetiapine 400 mg tablet (Seroquel) 800 mg PO HS 02/25/19 02/24/24 cariprazine 6 mg capsule (Vraylar) 6 mg PO DAILY 03/31/19 02/24/24 cetirizine 10 mg capsule (All Day 10 mg PO DAILY 09/05/20 02/24/24 Allergy (cetirizine)) hydroxyzine HCl 25 mg tablet 25 mg PO QID PRN 09/05/20 02/24/24 buspirone 15 mg tablet 30 mg PO BID 05/13/22 02/24/24 polyethylene glycol 3350 17 17 g PO DAILY 10/21/22 02/24/24 gram/dose oral powder celecoxib 100 mg capsule (Celebrex) 100 mg PO DAILY 04/29/23 02/24/24 carbidopa 25 mg-levodopa 100 mg 1 tab PO QID #360 tabs 09/30/23 02/24/24 tablet (Sinemet) topiramate 50 mg tablet 50 mg PO DAILY 09/30/23 02/24/24 Previous Rx's Medication Instructions Recorded omeprazole 40 mg capsule,delayed 40 mg PO BID ##60 02/12/18 release carbidopa 25 mg-levodopa 100 mg 1 tab PO QID #360 tabs 09/30/23 tablet (Sinemet) Allergies Allergy/AdvReac Type Severity Reaction Status Date / Time No Known Allergies Allergy Verified 02/24/24 16:23 General GENEVIEVE: 3 Review of Systems Narrative: per HPI Exam Narrative Exam Narrative: Const: WDWN male in NAD. VS per triage. HEENT: NC/AT. Normal facial exam. Lungs: Normal respiratory effort. Lungs are clear. Cor: RRR without murmur. Good radial pulses. Neuro: A+O x 3. Normal speech, mentation, shuffling gait. Cranial nerves II - XII grossly intact. No gross motor or sensory deficit. Medical Decision Making Patient presenting to ED with esophageal foreign body. Has had this many times in the past and typically requires endoscopy. He is having no difficulty breathing. Will start with effervescence and heal stomping before moving to glucagon or nitro. On second attempt with effervescent and heal stomp patient succeeded in dislodging foreign body. He is able to drink water now without difficulty. He is discharged home with reminders to cut up his food and chew thoroughly. Return precautions provide. Medical Records Medical records reviewed: Yes I reviewed the patient's medical records. PFSH All Active Problems (Updated 02/24/24 @ 16:31 by Sohan Rushing MD) Alcohol abuse (Chronic) Memory deficit (Acute) Dysphagia (Acute) Tubular adenoma (Acute ~10/2020) Colon polyp, hyperplastic (Acute ~10/2020) Esophageal foreign body (Acute) Esophagitis (Acute) Medical History Parkinsonism Diabetes mellitus, type II GERD (gastroesophageal reflux disease) COPD (chronic obstructive pulmonary disease) Schizophrenia Hyperlipidemia Surgical History History of esophagogastroduodenoscopy (EGD) 05/20/19 Dr Elizabeth Jackson, [facility], If the biopsies do not show eosinophilic esophagitis, then he may be a candidate for Giovanni procedure to reduce the degree of inflammation. History of colonoscopy EGD - MAC (02/12/18) EGD - MAC (09/25/17) EGD - MAC (03/13/17) Family History Other Diabetes Hyperlipidemia Hypertension Social History Smoking/Tobacco Use Status: Former Tobacco Use Quit Date: 09/21/04 Smoking risk assessment performed?: Yes Alcohol Intake: current Alcohol Intake frequency: a few times a week Alcohol type: beer Drug use: Never Substance use type: does not use Housing: house Do you feel safe at home: Yes Do you feel safe in your relationship?: Yes
--- NOTE | 2024-02-24 16:32 | NUR.NOTE ---
EZ gas given 1625. obstruction cleared. able to swallow and drink water.Nursing Note:
== END 2024-02-24 16:38 | disposition home or self-care (01) ==
LOC: ER 16:41
PROVIDERS: Emergency Provider Emergency Medicine; PCP Physician Assistant
DX: T18.128A Food in esophagus causing other injury, initial encounter (principal); G20.C Parkinsonism, unspecified; E11.9 Type 2 diabetes mellitus without complications; K21.9 Gastro-esophageal reflux disease without esophagitis; J44.9 Chronic obstructive pulmonary disease, unspecified; E78.5 Hyperlipidemia, unspecified; Z87.891 Personal history of nicotine dependence; W44.F3XA Food entering into or through a natural orifice, initial encounter; Y93.89 Activity, other specified; Y92.89 Other specified places as the place of occurrence of the external cause
CPT/HCPCS: 99283

== ENCOUNTER 2024-03-29 15:01 | Outpatient (REF) | payer OTHER, MEDICAID, SELFPAY ==
[2024-03-29 16:19] LABS: HCT 36.4 % (40.0-50.0); HGB 11.8 g/dL (13.5-17.5); MCH 29.1 pg (27.0-33.0); MCHC 32.4 % (32.0-36.0); MCV 90 fL (80-95); MPV 10.4 fL (8.0-11.0); Platelet Count 186 10^3/uL (130-400); RBC 4.06 10^6/uL (4.36-5.78); RDW 14.4 % (11.8-14.1); RDW-SD 47.3 fL; WBC 6.05 10^3/uL (4.4-10.8)
[2024-03-29 16:32] LABS: ALT 19 U/L (16-63); AST 19 U/L (15-37); Albumin 3.8 g/dL (3.4-5.0); Alkaline Phosphatase 74 U/L (46-116); Anion Gap 9.7 mmol/L (3-11); BUN 8 mg/dL (7-18); Bilirubin, Total 0.28 mg/dL (0.2-1.0); CO2 24.3 mmol/L (21.0-32.0); CREATININE 0.9 mg/dL (0.70-1.30); Calcium 8.9 mg/dL (8.5-10.1); Calculated LDL 47 mg/dL (<100); Chloride 109 mmol/L (98-107); Cholesterol 140 mg/dL (<200); Estimated GFR 95.37 (mL/min/1.73m2); Glucose 78 mg/dL (74-106); HDL Cholesterol 85 mg/dL (40-60); Potassium 3.9 mmol/L (3.5-5.1); Sodium 143 mmol/L (136-145); Total Protein 6.3 g/dL (6.4-8.2); Triglyceride 43 mg/dL (<150)
[2024-04-06 16:29] LABS: PSA, Screening 0.4 ng/mL (<=4.5)
== END 2024-03-29 15:02 | disposition home or self-care (01) ==
LOC: NCHCN 15:01
PROVIDERS: PCP Physician Assistant; Visit Provider Physician Assistant
DX: E78.5 Hyperlipidemia, unspecified (principal); Z12.5 Encounter for screening for malignant neoplasm of prostate
CPT/HCPCS: 80053; 80061; 84153; 85027

== ENCOUNTER → 2024-03-30 11:01 | Outpatient (BNVA) | payer OTHER, MEDICAID, SELFPAY | PROVIDERS: PCP Physician Assistant; Visit Provider Psychiatry & Neurology Neurology | DX: G21.11 Neuroleptic induced parkinsonism (principal); R13.10 Dysphagia, unspecified; R41.3 Other amnesia | CPT/HCPCS: 99213 ==

== ENCOUNTER 2024-04-12 14:25 | Emergency (ER) | payer OTHER, MEDICAID, SELFPAY ==
[2024-04-12 14:31] VITALS: BP 108/48; PULSE 72; RESP 16; TEMP 36.9; O2SAT 97
--- NOTE | 2024-04-12 15:15 | DI.CT_ITS ---
Exam(s) CT CHEST WO EXAM: CT CHEST WO CLINICAL HISTORY: RIGHT RIB PAIN. TECHNIQUE: Multi planar reconstructions were performed. CONTRAST MATERIAL: None COMPARISON: CT UPPER ABD WITH CONTRAST (P) from 08/21/2010 CR,XR XR CHEST 2V PA LATERAL from 10/17/2023 FINDINGS: CHEST: LUNGS: There are no infiltrates nor pleural effusions. A few tiny calcified granulomas are noted in the upper level of the left lung. There is also a noncalcified 2-3 mm nodule in the lateral basal se gment of the left lower (series 3/image 47). No focal right lung findings. No pleural effusions on either side. There are no findings in the trachea and mainstem bronchi. There is no bronchiectasis. MEDIASTINUM: There is no obvious hilar nor mediastinal adenopathy. Visualized thyroid unremarkable.No obvious axillary adenopathy CARDIAC: Heart size is normal. There is no pericardial effusion.Caliber of the thoracic aorta is wit hin normal limits. 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 This is not an uncommon variant. VISUALIZED UPPER ABDOMEN:No adrenal masses nor splenomegaly. Partially visualized kidneys reveal lar ge calculus in the midpole level of right kidney only partially included in the field of view but slava suring at least 9 mm size. No calculi seen in the partially included left kidney. OSSEOUS: No fractures. No significant osseous lesions. IMPRESSION: 1. No infiltrates nor pleural effusions. Small benign-appearing 3 millimeter left lower lobe nodule. Not requiring imaging follow-up in low risk patient. Otherwise repeat CT scan in 1 year. 2. No intrathoracic adenopathy. 3. There is a 9 millimeter calculus noted in the partially included right kidney. Called by myself to ER physician 04/12/2024 5:40 p.m. RADIATION DOSE DELIVERED: Total DLP DATA REPOSITORY: All CT scans at this facility are submitted to the National Radiology Data Registry (NRDR) Dose Index Registry (DIR) with the [employer] (ACR). RADIATION OPTIMIZATION: All CT scans at this facility use at least one of these dose optimization te chniques: automated exposure control; mA and/or kV adjustment per patient size (includes targeted exa ms where dose is matched to clinical indication); or iterative reconstruction.
[2024-04-12 15:20] VITALS: BP 117/67; PULSE 73; RESP 16; O2SAT 97
[2024-04-12 15:27] VITALS: BP 117/67; PULSE 73
[2024-04-12 15:37] LABS: Abs Immature Grans 0.01 10^3/uL (0.0-0.06); Absolute Basophil Count 0.06 10^3/uL (0.0-0.2); Absolute Lymphocyte Count 1.57 10^3/uL (1.2-3.4); Absolute Monocyte Count 0.47 10^3/uL (0.1-0.8); Absolute Neutrophil Count 2.53 10^3/uL (1.2-6.7); Basophils % 1.2 %; Eosinophils % 4.1 %; HCT 38.2 % (40.0-50.0); HGB 12.6 g/dL (13.5-17.5); Immature Grans % 0.2 %; Lymphocytes % 32.4 %; MCH 29.6 pg (27.0-33.0); MCV 90 fL (80-95); MPV 9.2 fL (8.0-11.0); Monocytes % 9.7 %; Neutrophils % 52.4 %; Platelet Count 182 10^3/uL (130-400); RBC 4.25 10^6/uL (4.36-5.78); RDW 14.2 % (11.8-14.1); RDW-SD 46.9 fL; WBC 4.84 10^3/uL (4.4-10.8)
[2024-04-12 15:53] LABS: ALT 21 U/L (16-63); AST 43 U/L (15-37); Albumin 4.1 g/dL (3.4-5.0); Alkaline Phosphatase 88 U/L (46-116); Anion Gap 9.4 mmol/L (3-11); BUN 9 mg/dL (7-18); Bilirubin, Total 0.25 mg/dL (0.2-1.0); CO2 27.6 mmol/L (21.0-32.0); CREATININE 0.8 mg/dL (0.70-1.30); Calcium 8.9 mg/dL (8.5-10.1); Chloride 105 mmol/L (98-107); Estimated GFR 98.83 (mL/min/1.73m2); Glucose 86 mg/dL (74-106); Lipase 78 U/L (16-77); Potassium 3.8 mmol/L (3.5-5.1); Sodium 142 mmol/L (136-145); Total Protein 7.2 g/dL (6.4-8.2)
[2024-04-12 17:01] VITALS: BP 111/72; PULSE 71; PULSE 73; RESP 20
[2024-04-12 17:02] VITALS: PULSE 71; RESP 16
--- NOTE | 2024-04-12 17:03 | W.ED.GENAD ---
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 50 mg tablet 50 mg PO DAILY carbidopa-levodopa [Sinemet] 25-100 mg tablet 1 tab PO QID Qty: 360 3RF Rx Instructions: Take around 6am, 10am, 2pm, and 6pm (about every 4 hours) sucralfate [Carafate] 1 GM tablet 1 g PO QID Qty: 28 All Day Allergy (cetirizine) 10 mg capsule 10 mg PO DAILY hydroxyzine HCl 25 mg tablet 25 mg PO QID PRN buspirone 15 mg tablet 30 mg PO BID sertraline 100 MG tablet 200 mg PO DAILY quetiapine [Seroquel] 400 mg tablet 800 mg PO HS naltrexone 50 mg tablet 100 mg PO DAILY omeprazole 40 MG capsule,delayed release(DR/EC) 40 mg PO BID Qty: 60 1RF Vraylar 6 mg Capsule 6 mg PO DAILY simvastatin 80 mg tablet 80 mg PO DAILY Patient Comments: filled on 04/01, pt states not taking. Discharge Instructions Instructions: Bruised Rib (DC) Additional Instructions: Use lidocaine patches provided Can take Tylenol or Celexa Uribe as prescribed Lab work does not indicate any significant abnormalities, If symptoms do not improve, please follow-up with your primary care provider HPI General Date/Time Provider Initiated Documentation: 04/12/24 14:27. Limitations to Documentation: no limitations. Information obtained by: patient. HPI Narrative: 63-year-old gentleman with past medical history of Parkinson's and alcohol abuse presents for evaluation of right rib pain. He reports that he has had this pain for the last 2 days. He thinks that he might has hit it on a door but he cannot say for sure. He reports that the pain is worse with movement. It is not associated with any vomiting or diarrhea. Is no chest pain or shortness of breath or abdominal pain. He has pain that he localizes along the lower rib margin. Related Data Home Medications ?Medication ?Instructions ?Recorded ?Confirmed sertraline 100 mg tablet 200 mg PO DAILY 09/06/15 04/12/24 sucralfate 1 gram tablet (Carafate) 1 g PO QID #28 tab-caps 04/02/17 04/12/24 omeprazole 40 mg capsule,delayed 40 mg PO BID ##60 02/12/18 04/12/24 release naltrexone 50 mg tablet 100 mg PO DAILY 02/25/19 04/12/24 quetiapine 400 mg tablet (Seroquel) 800 mg PO HS 02/25/19 04/12/24 cariprazine 6 mg capsule (Vraylar) 6 mg PO DAILY 03/31/19 04/12/24 cetirizine 10 mg capsule (All Day 10 mg PO DAILY 09/05/20 04/12/24 Allergy (cetirizine)) hydroxyzine HCl 25 mg tablet 25 mg PO QID PRN 09/05/20 04/12/24 buspirone 15 mg tablet 30 mg PO BID 05/13/22 04/12/24 polyethylene glycol 3350 17 17 g PO DAILY 10/21/22 04/12/24 gram/dose oral powder celecoxib 100 mg capsule (Celebrex) 100 mg PO DAILY 04/29/23 04/12/24 topiramate 50 mg tablet 50 mg PO DAILY 09/30/23 04/12/24 carbidopa 25 mg-levodopa 100 mg 1 tab PO QID #360 tabs 03/30/24 04/12/24 tablet (Sinemet) lidocaine 5 % topical patch 1 patch topical DAILY #15 ea 04/12/24 (Lidoderm) simvastatin 80 mg tablet 80 mg PO DAILY 04/12/24 04/12/24 Previous Rx's ?Medication ?Instructions ?Recorded omeprazole 40 mg capsule,delayed 40 mg PO BID ##60 02/12/18 release carbidopa 25 mg-levodopa 100 mg 1 tab PO QID #360 tabs 03/30/24 tablet (Sinemet) lidocaine 5 % topical patch 1 patch topical DAILY #15 ea 04/12/24 (Lidoderm) Allergies Allergy/AdvReac Type Severity Reaction Status Date / Time No Known Allergies Allergy Verified 04/12/24 14:33 General Stated Complaint: Abd Prob GENEVIEVE: 3 Exam Narrative Exam Narrative: Review of Systems: All systems reviewed & are unremarkable except as noted in HPI and below Well-developed, no acute distress NCAT PERRL, normal conjunctiva RRR no murmur Tenderness along the right posterior lateral rib margin Unlabored respiratory effort clear bilaterally Nondistended abdomen soft nontender Extremities w/o deformity, no cyanosis, no edema No rashes or lesions. No skin lineages bruising or changes over the right flank no focal neurologic deficits Appropriate mood and affect Course Vital Signs Vital signs: Vital Signs Temperature 36.9 C 04/12/24 14:31 Pulse 72 04/12/24 14:31 Respiratory Rate 16 04/12/24 14:31 Blood Pressure 108/48 L 04/12/24 14:31 Pulse Oximetry 97 04/12/24 14:31 Temperature 36.9 C 04/12/24 14:31 Temperature Source Temporal Artery Scan 04/12/24 14:31 Pulse 73 04/12/24 15:20 Respiratory Rate 16 04/12/24 15:20 Respiratory Effort Normal 04/12/24 15:20 Blood Pressure 117/67 04/12/24 15:20 Blood Pressure Position Sitting 04/12/24 14:31 Pulse Oximetry 97 04/12/24 15:20 Oxygen Delivery Method Room Air 04/12/24 14:31 Oxygen Flow Rate 0 04/12/24 14:31 Pain Level 8 04/12/24 15:20 Lab/Test Results Lab/Test Results: Laboratory Tests Range/Units 04/12/24 04/12/24 04/12/24 15:20 15:24 18:20 WBC Cancelled 4.84 RBC Cancelled 4.25 L Hgb Cancelled 12.6 L Hct Cancelled 38.2 L MCV Cancelled 90 MCH Cancelled 29.6 MCHC Cancelled 33.0 RDW Cancelled 14.2 H Plt Count Cancelled 182 MPV Cancelled 9.2 Immature Gran % Cancelled 0.2 Neutrophils % Cancelled 52.4 Band Neutrophils % Cancelled Lymphocytes % Cancelled 32.4 Atypical Lymphs % Cancelled Monocytes % Cancelled 9.7 Eosinophils % Cancelled 4.1 Basophils % Cancelled 1.2 Metamyelocytes % Cancelled Myelocytes % Cancelled Promyelocytes % Cancelled Other Cells % Cancelled Nucleated RBC % Cancelled 0.0 Absolute Neutrophils Cancelled 2.53 Absolute Lymphocytes Cancelled 1.57 Absolute Monocytes Cancelled 0.47 Absolute Eosinophils Cancelled 0.20 Absolute Basophils Cancelled 0.06 RBC Morphology Cancelled Polychromasia Cancelled Hypochromasia Cancelled Poikilocytosis Cancelled Basophilic Stippling Cancelled Anisocytosis Cancelled Microcytosis Cancelled Macrocytosis Cancelled Spherocytes Cancelled Tear Drop Cells Cancelled Ovalocytes Cancelled Stomatocytes Cancelled Carrasco-Oxford Bodies Cancelled Darrin Cells/Echinocytes Cancelled Acanthocytes (Spur) Cancelled Schistocytes Cancelled Sodium Cancelled 142 Potassium Cancelled 3.8 Chloride Cancelled 105 Carbon Dioxide Cancelled 27.6 Anion Gap Cancelled 9.4 BUN Cancelled 9 Creatinine Cancelled 0.8 Est GFR (CKD-EPI 2020) Cancelled 98.83 Glucose Cancelled 86 Calcium Cancelled 8.9 Magnesium Cancelled Total Bilirubin Cancelled 0.25 AST Cancelled 43 H ALT Cancelled 21 Alkaline Phosphatase Cancelled 88 Troponin I Cancelled Cancelled Total Protein Cancelled 7.2 Albumin Cancelled 4.1 Lipase (16-77) U/L 78 H Medical Decision Making Emergent evaluation of right flank pain. Pain is localized to the rib seems to be associated with the setting of trauma that the patient is not quite clear. He is not having any urinary symptoms or abdominal pain. His abdominal examination is benign. I have a low suspicion for an intra-abdominal process causing this urinary tract infection or renal colic causing the constant pain for the last 2 days. He is not responding well to NSAID taken at home. Lab work obtained. No leukocytosis, no significant anemia. Abdominal lab work unremarkable. He does have a slight elevation of his lipase at only 78, but the patient has no symptoms or concerns for pancreatitis. He has been unable to provide a urinalysis at this time. No chest CT was obtained to evaluate for rib fracture. Final disposition pending chest CT turned over to oncoming provider. Lidocaine patch has been sent to the pharmacy. Quality:CTOH Health Related Social Needs: No Data to Display [facility] All Active Problems (Updated 04/12/24 @ 17:15 by Neda Barron MD) Rib pain on right side (Acute) Alcohol abuse (Chronic) Memory deficit (Acute) Dysphagia (Acute) Tubular adenoma (Acute ~10/2020) Colon polyp, hyperplastic (Acute ~10/2020) Esophageal foreign body (Acute) Esophagitis (Acute) Medical History Parkinsonism Diabetes mellitus, type II GERD (gastroesophageal reflux disease) COPD (chronic obstructive pulmonary disease) Schizophrenia Hyperlipidemia Surgical History History of esophagogastroduodenoscopy (EGD) 05/20/19 Dr Elizabeth Jackson, [facility], If the biopsies do not show eosinophilic esophagitis, then he may be a candidate for Giovanni procedure to reduce the degree of inflammation. History of colonoscopy EGD - MAC (02/12/18) EGD - MAC (09/25/17) EGD - MAC (03/13/17) Family History Other Diabetes Hyperlipidemia Hypertension Social History Smoking/Tobacco Use Status: Former Tobacco Use Quit Date: 09/21/04 Smoking risk assessment performed?: Yes Alcohol Intake: current Alcohol Intake frequency: a few times a week Alcohol type: beer Drug use: Never Substance use type: does not use Housing: house Do you feel safe at home: Yes Do you feel safe in your relationship?: Yes Sign Out Sign Out Data: Sign Out Comment: RIGHT RIB PAIN X2 DAYS, MAYBE FELL HASN'T URINATED, BUT IF HE DOESN'T STILL OK TO DISCHARGE PENDING: CT READ TO [facility] FOR RIB FX Last updated by Neda Barron MD at 04/12/24 17:15
[2024-04-12] MEDS: Lidocaine 5% Patch 1 PATCH TP (17:17)
[2024-04-12] MEDS: Acetaminophen 500 MG TAB 1000 MG PO (17:17)
--- NOTE | 2024-04-12 17:58 | ED.PROG_ITS ---
Date of service: 04/12/24 Time of Service: 17:58 Medical Decision Making Patient stable, CT shows no acute findings in the chest does have a 9 mm stone in his kidney. He localizes the pain into the right mid lateral chest reproducible on exam so doubt that this is the cause of his pain. He is stable for discharge, advised follow-up with his PCP and return precautions given. Imaging Data Radiologic Study: Attestation: I personally reviewed and interpreted this imaging study as follows: Imaging: CT Scan Radiologist's impression: IMPRESSION: 1. No infiltrates nor pleural effusions. Small benign-appearing 3 millimeter left lower lobe nodule. Not requiring imaging follow-up in low risk patient. Otherwise repeat CT scan in 1 year. 2. No intrathoracic adenopathy. 3. There is a 9 millimeter calculus noted in the partially included right kidney Lab Data Lab results reviewed: Yes I reviewed the patient's lab results. Quality:[facility] Health Related Social Needs: No Data to Display Sign Out Sign Out Data: Sign Out Comment: RIGHT RIB PAIN X2 DAYS, MAYBE FELL HASN'T URINATED, BUT IF HE DOESN'T STILL OK TO DISCHARGE PENDING: CT READ TO EVAL FOR RIB FX Last updated by Neda Barron MD at 04/12/24 17:15 Discharge Plan Disposition Patient Disposition: Home Condition: Stable Discharge Details Clinical Impression: Rib pain on right side Primary Care Provider: Prasanna Browne ED Provider: Henrique Sethi Home Meds and New Rx's Prescriptions: New lidocaine [Lidoderm] 5 % adhesive patch,medicated 1 patch topical DAILY Qty: 15 0RF Rx Instructions: leave on most painful area for up to 12 hrs No Action polyethylene glycol 3350 17 gram/dose powder 17 g PO DAILY celecoxib [Celebrex] 100 mg capsule 100 mg PO DAILY Patient Comments: 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 50 mg tablet 50 mg PO DAILY carbidopa-levodopa [Sinemet] 25-100 mg tablet 1 tab PO QID Qty: 360 3RF Rx Instructions: Take around 6am, 10am, 2pm, and 6pm (about every 4 hours) sucralfate [Carafate] 1 GM tablet 1 g PO QID Qty: 28 All Day Allergy (cetirizine) 10 mg capsule 10 mg PO DAILY hydroxyzine HCl 25 mg tablet 25 mg PO QID PRN buspirone 15 mg tablet 30 mg PO BID sertraline 100 MG tablet 200 mg PO DAILY quetiapine [Seroquel] 400 mg tablet 800 mg PO HS naltrexone 50 mg tablet 100 mg PO DAILY omeprazole 40 MG capsule,delayed release(DR/EC) 40 mg PO BID Qty: 60 1RF Vraylar 6 mg Capsule 6 mg PO DAILY simvastatin 80 mg tablet 80 mg PO DAILY Patient Comments: filled on 04/01, pt states not taking. Discharge Instructions Instructions: Bruised Rib (DC) Additional Instructions: * Use lidocaine patches provided * Can take Tylenol or Celexa Uribe as prescribed * Lab work does not indicate any significant abnormalities, * If symptoms do not improve, please follow-up with your primary care provider
== END 2024-04-12 18:09 | disposition home or self-care (01) ==
PROVIDERS: Emergency Medicine; Emergency Provider Emergency Medicine; PCP Physician Assistant
DX: R07.81 Pleurodynia (principal); N20.0 Calculus of kidney; E11.9 Type 2 diabetes mellitus without complications; J44.9 Chronic obstructive pulmonary disease, unspecified; E78.5 Hyperlipidemia, unspecified; G20.A1 Parkinson's disease without dyskinesia, without mention of fluctuations; Z87.891 Personal history of nicotine dependence
CPT/HCPCS: 00123; 71250; 80053; 83690; 99285; 83735; 84484; 85025; 99284

== ENCOUNTER 2024-05-25 02:39 | Outpatient (CLI) | payer OTHER, MEDICAID, SELFPAY ==
[2024-05-25 14:05] LABS: HCT 36.9 % (40.0-50.0); HGB 12.1 g/dL (13.5-17.5); MCH 29.8 pg (27.0-33.0); MCHC 32.8 % (32.0-36.0); MCV 91 fL (80-95); MPV 9.8 fL (8.0-11.0); Platelet Count 178 10^3/uL (130-400); RBC 4.06 10^6/uL (4.36-5.78); RDW 14.2 % (11.8-14.1); RDW-SD 47.6 fL
[2024-05-25 14:47] LABS: Ferritin 38 ng/mL (26-388); Vitamin B12 834 pg/mL (193-986)
[2024-05-25 15:32] LABS: Iron 91 ug/dL (65-175); Total Iron Binding Capacity 348 ug/dL (250-450); Transferrin Sat 26 % (20-55)
== END 2024-05-25 02:40 | disposition home or self-care (01) ==
LOC: LBO 02:39
PROVIDERS: PCP Physician Assistant; Visit Provider Physician Assistant
DX: D64.9 Anemia, unspecified (principal)
CPT/HCPCS: 36415; 85027; 82607; 82728; 83540; 83550; 85045

== ENCOUNTER → 2024-10-13 10:57 | Outpatient (BNVA) | payer MEDICARE, MEDICAID, SELFPAY | PROVIDERS: PCP Physician Assistant; Referring Provider Physician Assistant; Visit Provider Psychiatry & Neurology Neurology | DX: R41.3 Other amnesia (principal); G21.11 Neuroleptic induced parkinsonism; R13.10 Dysphagia, unspecified | CPT/HCPCS: 99215 ==

== ENCOUNTER 2024-11-01 03:26 | Outpatient (CLI) | payer OTHER, MEDICAID, SELFPAY ==
[2024-11-01 10:44] LABS: TSH (W/Ref FT4) 2.53 uIU/mL (0.36-3.74); Vitamin B12 563 pg/mL (193-986)
== END 2024-11-01 03:27 | disposition home or self-care (01) ==
LOC: LBO 03:26
PROVIDERS: PCP Physician Assistant; Visit Provider Psychiatry & Neurology Neurology
DX: R41.3 Other amnesia (principal); G62.9 Polyneuropathy, unspecified
CPT/HCPCS: 36415; 82607; 84443

== ENCOUNTER 2024-11-08 02:25 | Outpatient (CLI) | payer OTHER, MEDICAID, SELFPAY ==
--- NOTE | 2024-11-08 06:30 | DI.MRI_ITS ---
Exam(s) MR BRAIN WO EXAM: MR BRAIN WO CLINICAL HISTORY: memory loss,MEMORY DEFICIT,R41.3 TECHNIQUE: Multiplanar multisequence MRI of the brain was performed. COMPARISON: No exams were available for comparison FINDINGS: VENTRICLES AND EXTRA AXIAL SPACES: Normal in size and morphology for the patient's age. MIDLINE SHIFT: None. CEREBRAL PARENCHYMA: No focus of restricted diffusion to suggest acute infarct. No space-occupying le darrell identified. There are areas of hyperintense signal seen in the white matter on the FLAIR and T2 weighted images likely reflecting small vessel ischemic disease. There is also an area of hyperinten sity seen on the T2 weighted images in the left nehemias. HEMORRHAGE: None. BRAINSTEM/CEREBELLUM: Normal. CALVARIUM: Normal. VISUALIZED PARANASAL SINUSES/MASTOIDS:There is mucosal thickening in the visualized paranasal sinuses . [place]: Normal flow void. PITUITARY GLAND: Unremarkable. OTHER FINDINGS: None. IMPRESSION: 1. Ventricular and sulcal size are symmetric and within normal limits for the patient's age. 2. No evidence of an acute infarct. 3. Areas of hyperintense signal seen in the white matter likely reflecting chronic microvascular isch emic disease. 4. Pansinusitis. DATA REPOSITORY:
== END 2024-11-08 02:45 ==
PROVIDERS: PCP Physician Assistant; Visit Provider Psychiatry & Neurology Neurology
DX: R41.3 Other amnesia (principal)
CPT/HCPCS: 70551

== ENCOUNTER 2024-11-10 13:13 | Emergency (ER) | payer OTHER, MEDICAID, SELFPAY ==
[2024-11-10 13:15] VITALS: BP 117/69; PULSE 70; RESP 16; TEMP 36.9; O2SAT 95
--- NOTE | 2024-11-10 14:00 | DI.RAD_ITS ---
Exam(s) XR CHEST 2V PA LATERAL EXAM: XR CHEST 2V PA LATERAL CLINICAL HISTORY: cough. TECHNIQUE: 2D digital imaging was performed. COMPARISON: CR,XR XR CHEST 2V PA LATERAL from 10/17/2023 FINDINGS: 2 views: Heart size is normal. The mediastinum is not widened. Left lung is clear but there is now patchy infiltrate evident in the lower half of the right lung fie ld which appears to be involving right middle lobe and right lower lobe. There are no pleural effusi ons. IMPRESSION: Right lung infiltrate consistent with probable pneumonia. This involves predominantly the right lowe r lobe but also right middle lobe. There are no pleural effusions. DATA REPOSITORY: RADIATION DOSE DELIVERED:
--- NOTE | 2024-11-10 14:54 | ED.GENADUL_ITS ---
Discharge Plan Disposition Patient Disposition: Home Condition: Stable Discharge Details Clinical Impression: CAP (community acquired pneumonia) Primary Care Provider: Prasanna Browne ED Provider: Henrique Sethi Home Meds and New Rx's Prescriptions: New prednisone 20 mg tablet 60 mg PO DAILY 4 Days Qty: 12 0RF doxycycline hyclate 100 mg tablet 100 mg PO BID Qty: 14 0RF amoxicillin-pot clavulanate 875-125 mg tablet 1 tab PO BID Qty: 14 0RF Continued polyethylene glycol 3350 17 gram/dose powder 17 g PO DAILY celecoxib [Celebrex] 100 mg capsule 100 mg PO DAILY Patient Comments: took 200mg [employer] topiramate 50 mg tablet 50 mg PO DAILY lorazepam 0.5 mg tablet 0.5 mg PO ONCE PRN (Reason: anxiety/claustrophobia) Qty: 2 0RF Rx Instructions: Take one tablet 30min prior to MRI. Ok to take second at time of MRI if still anxious. Do not drive after taking. sucralfate [Carafate] 1 GM tablet 1 g PO QID Qty: 28 All Day Allergy (cetirizine) 10 mg capsule 10 mg PO DAILY hydroxyzine HCl 25 mg tablet 25 mg PO QID PRN buspirone 15 mg tablet 30 mg PO BID carbidopa-levodopa [Sinemet] 25-100 mg tablet 1 tab PO QID Qty: 360 3RF Rx Instructions: Take around 6am, 10am, 2pm, and 6pm (about every 4 hours) sertraline 100 MG tablet 200 mg PO DAILY quetiapine [Seroquel] 400 mg tablet 800 mg PO HS naltrexone 50 mg tablet 100 mg PO DAILY omeprazole 40 MG capsule,delayed release(DR/EC) 40 mg PO BID Qty: 60 1RF Vraylar 6 mg Capsule 6 mg PO DAILY simvastatin 80 mg tablet 80 mg PO DAILY Patient Comments: filled on 04/01, pt states not taking. lidocaine [Lidoderm] 5 % adhesive patch,medicated 1 patch topical DAILY Qty: 15 0RF Rx Instructions: leave on most painful area for up to 12 hrs Discharge Instructions Additional Instructions: Take the antibiotics and prednisone as prescribed. If you are not improving within a week follow-up with your primary care provider. If you feel significantly more ill or have severe worsening shortness of breath return to the emergency department for reevaluation HPI General Mode of arrival: ambulatory . Date/Time Provider Initiated Documentation: 11/10/24 13:55 . Limitations to Documentation: no limitations . Information obtained by: patient . History of Present Illness 64 year old M presents to the emergency department with the chief complaint of cough, described as moderate, Patient started experiencing this week(s) (1) and it has been constant. No relieving factors improve symptom(s), No exacerbating factors reported . Patient notes denies chest pain, fever/chills, nausea/vomiting and shortness of breath. Patient did receive the following treatments prior to arrival, none Related Data Home Medications ?Medication ?Instructions ?Recorded ?Confirmed sertraline 100 mg tablet 200 mg PO DAILY 09/06/15 10/13/24 sucralfate 1 gram tablet (Carafate) 1 g PO QID #28 tab-caps 04/02/17 10/13/24 omeprazole 40 mg capsule,delayed 40 mg PO BID ##60 02/12/18 10/13/24 release naltrexone 50 mg tablet 100 mg PO DAILY 02/25/19 10/13/24 quetiapine 400 mg tablet (Seroquel) 800 mg PO HS 02/25/19 10/13/24 cariprazine 6 mg capsule (Vraylar) 6 mg PO DAILY 03/31/19 10/13/24 cetirizine 10 mg capsule (All Day 10 mg PO DAILY 09/05/20 10/13/24 Allergy (cetirizine)) hydroxyzine HCl 25 mg tablet 25 mg PO QID PRN 09/05/20 10/13/24 buspirone 15 mg tablet 30 mg PO BID 05/13/22 10/13/24 polyethylene glycol 3350 17 17 g PO DAILY 10/21/22 10/13/24 gram/dose oral powder celecoxib 100 mg capsule (Celebrex) 100 mg PO DAILY 04/29/23 10/13/24 topiramate 50 mg tablet 50 mg PO DAILY 09/30/23 10/13/24 lidocaine 5 % topical patch 1 patch topical DAILY #15 ea 04/12/24 10/13/24 (Lidoderm) simvastatin 80 mg tablet 80 mg PO DAILY 04/12/24 10/13/24 carbidopa 25 mg-levodopa 100 mg 1 tab PO QID #360 tabs 10/11/24 10/13/24 tablet (Sinemet) lorazepam 0.5 mg tablet 0.5 mg PO ONCE PRN 10/13/24 10/13/24 anxiety/claustrophobia #2 tabs amoxicillin 875 mg-potassium 1 tab PO BID #14 tabs 11/10/24 clavulanate 125 mg tablet doxycycline hyclate 100 mg tablet 100 mg PO BID #14 tabs 11/10/24 prednisone 20 mg tablet 60 mg (3 x 20 mg) PO DAILY 4 days 11/10/24 #12 tabs Previous Rx's ?Medication ?Instructions ?Recorded omeprazole 40 mg capsule,delayed 40 mg PO BID ##60 02/12/18 release lidocaine 5 % topical patch 1 patch topical DAILY #15 ea 04/12/24 (Lidoderm) carbidopa 25 mg-levodopa 100 mg 1 tab PO QID #360 tabs 10/11/24 tablet (Sinemet) lorazepam 0.5 mg tablet 0.5 mg PO ONCE PRN 10/13/24 anxiety/claustrophobia #2 tabs amoxicillin 875 mg-potassium 1 tab PO BID #14 tabs 11/10/24 clavulanate 125 mg tablet doxycycline hyclate 100 mg tablet 100 mg PO BID #14 tabs 11/10/24 prednisone 20 mg tablet 60 mg (3 x 20 mg) PO DAILY 4 days 11/10/24 #12 tabs Allergies Allergy/AdvReac Type Severity Reaction Status Date / Time No Known Allergies Allergy Verified 11/10/24 13:22 General Stated Complaint: RespSymp GENEVIEVE: 4 Review of Systems All systems reviewed & are unremarkable except as noted in HPI and below Constitutional Constitutional: Denies chills and Denies fever(s) Cardiovascular Cardiovascular: Denies chest pain and Denies dyspnea Respiratory Respiratory: Reports cough and Denies dyspnea Gastrointestinal Gastrointestinal: Denies abdominal pain, Denies nausea and Denies vomiting Exam Const General: no acute distress Orientation: alert HENDC Head: normal to inspection Ears: external ears normal General nose exam: external nose normal Mouth: moist mucous membranes Eyes General: appearance normal, both eyes and all related structures Neck Neck: normal visual inspection Resp Effort & Inspection: normal respiratory effort and able to speak in complete sentences Auscultation: rhonchi and wheezes Cardio Jugular venous pressure: no JVD Rate: regular rate Skin General skin exam: no rashes or lesions noted Neuro General: patient alert and patient oriented x3 Extrem General: normal to inspection Psych Mental Status: mental status grossly normal Course Vital Signs Vital signs: Vital Signs Temperature 36.9 C 11/10/24 13:15 Pulse 70 11/10/24 13:15 Respiratory Rate 16 11/10/24 13:15 Blood Pressure 117/69 11/10/24 13:15 Pulse Oximetry 95 11/10/24 13:15 Temperature 36.9 C 11/10/24 13:15 Temperature Source Temporal Artery Scan 11/10/24 13:15 Pulse 70 11/10/24 13:15 Respiratory Rate 16 11/10/24 13:15 Blood Pressure 117/69 11/10/24 13:15 Blood Pressure Position Sitting 11/10/24 13:15 Pulse Oximetry 95 11/10/24 13:15 Oxygen Delivery Method Room Air 11/10/24 13:15 Oxygen Flow Rate 0 11/10/24 13:15 Pain Level 6 11/10/24 13:15 Medical Decision Making 64-year-old male with a history of COPD and still intermittently smokes per the patient comes in with 1 and half weeks of intermittent productive cough. He denies any fevers no vomiting, no diaphoresis. He had an x-ray done prior to my exam which does show right lower lobe infiltrate. He has normal oxygenation on arrival, no signs of respiratory distress, answer questions appropriately. He is being worked up for this chronic issue with a swallowing thought to be secondary to GERD and not changed. He has no drooling or stridor on exam. He does have rhonchi at the bases bilaterally and wheezing. I recommended doing steroids and a DuoNeb and also checking labs including CBC, CMP and proca lcitonin along with a Fluvid but patient declines this at this time only to have any lab work done, he has medical decision-making capacity currently and understands the reasoning for doing so to determine if he has an underlying viral illness along with his pneumonia and also to evaluate for severity of pneumonia and he is willing to accept the risks of not doing the labs. Will reassess after he gets his DuoNeb and prednisone and Augmentin and doxycycline. Patient feeling better after 1 neb and lung sounds have improved. He still declines have any blood work done. I am going to place him on a course of Augmentin and doxycycline along with prednisone. He will follow-up with his PCP if not improving and return precautions given Differential Diagnosis Differential Diagnosis: COVID, flu, pneumonia Medical Records Medical records reviewed: Yes I reviewed the patient's medical records. Quality:SDOH Health Related Social Needs: No Data to Display PFSH All Active Problems (Updated 11/10/24 @ 15:36 by Henrique Sethi MD) CAP (community acquired pneumonia) (Acute) Alcohol abuse (Chronic) Memory deficit (Acute) Dysphagia (Acute) Tubular adenoma (Acute ~10/2020) Colon polyp, hyperplastic (Acute ~10/2020) Esophageal foreign body (Acute) Esophagitis (Acute) Medical History Parkinsonism Diabetes mellitus, type II GERD (gastroesophageal reflux disease) COPD (chronic obstructive pulmonary disease) Schizophrenia Hyperlipidemia Surgical History History of esophagogastroduodenoscopy (EGD) 05/20/19 Dr Elizabeth Jackson, [facility], If the biopsies do not show eosinophilic esophagitis, then he may be a candidate for Go[place]anni procedure to reduce the degree of inflammation. History of colonoscopy EGD - MAC (02/12/18) EGD - MAC (09/25/17) EGD - MAC (03/13/17) Family History Other Diabetes Hyperlipidemia Hypertension Social History Smoking/Tobacco Use Status: Former Tobacco Use Quit Date: 09/21/04 Smoking risk assessment performed?: Yes Alcohol Intake: current Alcohol Intake frequency: a few times a week Alcohol type: beer Drug use: Never Substance use type: does not use Housing: house Do you feel safe at home: Yes Do you feel safe in your relationship?: Yes
[2024-11-10] MEDS: Amoxicillin 875/Clav. 125 TAB PO (14:59)
[2024-11-10] MEDS: Doxycycline Hyclate 100 MG CAP PO (14:59)
[2024-11-10] MEDS: Albuterol/Ipratropium 3 ML UPD VIAL UPD (15:00)
[2024-11-10] MEDS: predniSONE 20 MG TAB 60 MG PO (15:00)
[2024-11-10 17:47] VITALS: BP 117/69; PULSE 70; RESP 16; TEMP 36.9; O2SAT 95
== END 2024-11-10 15:48 | disposition home or self-care (01) ==
PROVIDERS: Emergency Provider Emergency Medicine; PCP Physician Assistant
DX: J18.9 Pneumonia, unspecified organism (principal)
CPT/HCPCS: 87637; 94640; 99283; 71046; J7512; J7620

== ENCOUNTER 2025-03-01 14:02 | Observation (INO) | payer MEDICARE, MEDICAID, SELFPAY ==
[2025-03-01] VITALS (13 sets, daily range): BP systolic 118–154; BP diastolic 67–83; PULSE 72–93; RESP 16–26; TEMP 36.3–37.4; O2SAT 94–100; BMI 26.4
[2025-03-01] MEDS: Simethicone/Sod Bicarb/Cit Ac, 4 gram PACKET 1 PACKET (14:30)
--- NOTE | 2025-03-01 14:30 | ED.GENADUL_ITS ---
Discharge Plan Discharge Details Chief Complaint: ForeignBody Primary Care Provider: Prasanna Browne ED Provider: Palmira Sanders Home Meds and New Rx's Prescriptions: No Action celecoxib [Celebrex] 100 mg capsule 200 mg PO DAILY PRN Patient Comments: took 200mg [employer] topiramate 50 mg tablet 50 mg PO BID sucralfate [Carafate] 1 gram tablet 1 g PO QID Qty: 360 3RF hydroxyzine HCl 25 mg tablet 25 mg PO QID buspirone 15 mg tablet 30 mg PO BID carbidopa-levodopa [Sinemet] 25-100 mg tablet 1 tab PO QID Qty: 360 3RF Rx Instructions: Take around 6am, 10am, 2pm, and 6pm (about every 4 hours) sertraline 100 MG tablet 200 mg PO DAILY quetiapine [Seroquel] 400 mg tablet 800 mg PO HS omeprazole 40 MG capsule,delayed release(DR/EC) 40 mg PO BID Qty: 60 1RF Vraylar 6 mg Capsule 6 mg PO DAILY simvastatin 80 mg tablet 80 mg PO QPM Patient Comments: filled on 04/01, pt states not taking. Combivent Respimat 20-100 mcg/actuation mist 1 puff INHALATION QID PRN Patient Comments: INHALE 1 PUFF BY MOUTH FOUR TIMES DAILY NEEDED FOR COUGH OR WHEEZING. REDUCE USING TOLERATED memantine 10 mg tablet 5 mg PO BID HPI General Date/Time Provider Initiated Documentation: 03/01/25 14:15 . Limitations to Documentation: no limitations . Information obtained by: patient, RN notes reviewed and old records reviewed . History of Present Illness 64 year old M presents to the emergency department with the chief complaint of esophageal FB, described as severe and similar to prior episodes, Quality is described as constant and other (FB sensation), Patient started experiencing this hour(s) and it has been constant. No relieving factors improve symptom(s), No exacerbating factors reported . Patient notes no other symptoms.. Patient did receive the following treatments prior to arrival, none Related Data Home Medications ?Medication ?Instructions ?Recorded ?Confirmed sertraline 100 mg tablet 200 mg PO DAILY 09/06/15 03/01/25 omeprazole 40 mg capsule,delayed 40 mg PO BID ##60 02/12/18 03/01/25 release quetiapine 400 mg tablet (Seroquel) 800 mg PO HS 02/25/19 03/01/25 cariprazine 6 mg capsule (Vraylar) 6 mg PO DAILY 03/31/19 03/01/25 hydroxyzine HCl 25 mg tablet 25 mg PO QID 09/05/20 03/01/25 buspirone 15 mg tablet 30 mg PO BID 05/13/22 03/01/25 celecoxib 100 mg capsule (Celebrex) 200 mg PO DAILY PRN 04/29/23 03/01/25 topiramate 50 mg tablet 50 mg PO BID 09/30/23 03/01/25 simvastatin 80 mg tablet 80 mg PO QPM 04/12/24 03/01/25 carbidopa 25 mg-levodopa 100 mg 1 tab PO QID #360 tabs 10/11/24 03/01/25 tablet (Sinemet) sucralfate 1 gram tablet (Carafate) 1 g PO QID #360 tab-caps 12/14/24 03/01/25 ipratropium 20 mcg-albuterol 100 1 puff inhalation QID PRN 03/01/25 03/01/25 mcg/actuation mist for inhalation (Combivent Respimat) memantine 10 mg tablet 5 mg PO BID 03/01/25 03/01/25 Previous Rx's ?Medication ?Instructions ?Recorded omeprazole 40 mg capsule,delayed 40 mg PO BID ##60 02/12/18 release carbidopa 25 mg-levodopa 100 mg 1 tab PO QID #360 tabs 10/11/24 tablet (Sinemet) sucralfate 1 gram tablet (Carafate) 1 g PO QID #360 tab-caps 12/14/24 Allergies Allergy/AdvReac Type Severity Reaction Status Date / Time No Known Allergies Allergy Verified 03/01/25 14:14 General Stated Complaint: ForeignBody GENEVIEVE: 3 Review of Systems Constitutional Constitutional: Reports as per HPI, Denies fever(s) and Denies headache(s) ENT Ears, Nose, Mouth, and Throat: Denies headache(s) Cardiovascular Cardiovascular: Reports as per HPI, Denies chest pain and Denies dyspnea Respiratory Respiratory: Reports as per HPI, Denies cough and Denies dyspnea Gastrointestinal Gastrointestinal: Reports as per HPI Musculoskeletal Musculoskeletal: Reports as per HPI and Denies back pain Integumentary/Breasts Skin/Breast: Reports as per HPI and Denies rash Neurologic Neurologic: Reports as per HPI and Denies headache(s) Exam Const General: cooperative, no acute distress and well developed Nutritional Appearance: average body habitus and well nourished Orientation: alert and awake [facility] Head: normal to inspection Mouth: moist mucous membranes Resp Effort & Inspection: normal respiratory effort, able to speak in complete sentences and no respiratory distress Auscultation: clear to auscultation bilaterally, no rales, no rhonchi and no wheezes Cardio Rate: regular rate Rhythm: regular rhythm Heart Sounds: S1 normal and S2 normal Skin General skin exam: no rashes or lesions noted Trauma: no lacerations or abrasions Neuro General: patient alert and patient awake Cognition: normal cognition Speech: speech normal Gait: normal gait Course Vital Signs Vital signs: Vital Signs Temperature 36.6 C 03/01/25 14:10 Pulse 83 03/01/25 14:10 Respiratory Rate 20 03/01/25 14:10 Blood Pressure 154/80 H 03/01/25 14:10 Pulse Oximetry 94 03/01/25 14:10 Temperature 36.6 C 03/01/25 14:10 Temperature Source Oral 03/01/25 14:10 Pulse 83 03/01/25 14:10 Respiratory Rate 20 03/01/25 14:10 Respiratory Effort Normal 03/01/25 14:20 Blood Pressure 154/80 H 03/01/25 14:10 Blood Pressure Position Sitting 03/01/25 14:10 Pulse Oximetry 94 03/01/25 14:10 Oxygen Delivery Method Room Air 03/01/25 14:10 Oxygen Flow Rate 0 03/01/25 14:10 Pain Level 10 03/01/25 14:10 Medical Decision Making Patient is a pleasant 64-year-old gentleman with past medical history significant for Parkinson's disease, type 2 diabetes, GERD, COPD, schizophrenia, presenting with a chief complaint of esophageal foreign body. He has been here for same historically, most recent visit was in February of last year at which time 2 rounds of effervescent granules that were successfully dislodging the foreign body. From notes reviewed, after the most recent esophageal foreign body, patianthonyn did not have f/u but was seen last October for EGD with retrieval of food bolus. Patient denies any shortness of breath. Was eating meat secondary to eating too quickly. On exam, patient appears uncomfortable. He is spitting up his secretions. He is hemodynamically stable, lungs are clear and does not have any shortness of breath. Speaking in full sentences. Patient has no respiratory distress, recurrent esophageal FB. Will try the efferescent granules again as these have worked historically. Attempted x 2 with patient feeling, slightly better but still spitting frequently. Discussed options and will move forward with 0.2mg IV glucagon, zofran for nausea. Glucagon unsuccesful. Will discuss with surgery. At the end of my shift, care transitioned to oncoming LA with surgical consultation pending. Quality:SDOH Health Related Social Needs: No Data to Display PFSH All Active Problems Alcohol abuse (Chronic) Memory deficit (Acute) Dysphagia (Acute) Tubular adenoma (Acute ~10/2020) Colon polyp, hyperplastic (Acute ~10/2020) Esophageal foreign body (Acute) Esophagitis (Acute) Medical History Parkinsonism Diabetes mellitus, type II GERD (gastroesophageal reflux disease) COPD (chronic obstructive pulmonary disease) Schizophrenia Hyperlipidemia Surgical History History of esophagogastroduodenoscopy (EGD) 05/20/19 Dr Elizabeth Jackson, [facility], If the biopsies do not show eosinophilic esophagitis, then he may be a candidate for Giovanni procedure to reduce the degree of inflammation. History of colonoscopy EGD - MAC (02/12/18) EGD - MAC (09/25/17) EGD - MAC (03/13/17) Family History Other Diabetes Hyperlipidemia Hypertension Social History Smoking/Tobacco Use Status: Former Tobacco Use Quit Date: 09/21/04 Smoking risk assessment performed?: Yes Alcohol Intake: current Alcohol Intake frequency: a few times a week Alcohol type: beer Drug use: Never Substance use type: does not use Housing: house Do you feel safe at home: Yes Do you feel safe in your relationship?: Yes
[2025-03-01] MEDS: Ondansetron 4 MG/2 ML VIAL IVP (15:07)
[2025-03-01] MEDS: Normal Saline Flush 10 ML SYR IVP (15:08)
[2025-03-01] MEDS: Glucagon 1 MG VIAL 0.2 MG IVP (15:08)
[2025-03-01] MEDS: Water,Injection,Sterile 10 ML VIAL (15:09)
--- NOTE | 2025-03-01 17:18 | HPE_ITS ---
Date of service: 03/01/25 Time of Service: 17:18 Assessment and Plan Assessment and plan (1) Esophageal foreign body: Status: Acute Assessment and plan: 64-year-old patient with previously documented and esophageal erosive esophagitis who has had frequent stock of food boluses requiring urgent procedures. Currently he is prescribed omeprazole 40 mg p.o. twice daily and sucralfate 1 g 4 times daily. Swallowing habits may be an issue. I have reviewed the procedure of flexible esophagoscopy and food bolus extraction with the patient and his brother, Efrain. They understand that the risks include tearing the esophagus or causing bleeding but that the risk of bleeding and obstructive food bolus is high with ulceration and perforation resulting. The patient does sign the consent form and the procedure will be performed urgently. History of Present Illness Narrative: Patient is a 64-year-old male with history of previous recent esophageal food obstructions who presents with similar issue after eating his midday meal at 2 PM. He feels like the food is stuck in the upper esophagus. He has been unable to swallow since this occurred. He does take omeprazole daily. He has both Parkinson's and schizophrenia with history of alcohol abuse in the distant past. His brother is present at the bedside with him. Review of Systems Constitutional Comments: Patient denies easy fatigue, poor appetite Cardiac: denies chest pain or irregular heartbeat Respiratory: denies dyspnea, NICHOLS, cough Heme: denies easy bleeding, easy bruising PFSH All Active Problems (Updated 03/01/25 @ 16:16 by FEDE Trinidad) Alcohol abuse (Chronic) Memory deficit (Acute) Dysphagia (Acute) Tubular adenoma (Acute ~10/2020) Colon polyp, hyperplastic (Acute ~10/2020) Esophageal foreign body (Acute) Esophagitis (Acute) Medical History Parkinsonism Diabetes mellitus, type II GERD (gastroesophageal reflux disease) COPD (chronic obstructive pulmonary disease) Schizophrenia Hyperlipidemia Surgical History History of esophagogastroduodenoscopy (EGD) 05/20/19 Dr Elizabeth Jackson, [facility], If the biopsies do not show eosinophilic esophagitis, then he may be a candidate for Giovanni procedure to reduce the degree of inflammation. History of colonoscopy EGD - MAC (02/12/18) EGD - MAC (09/25/17) EGD - MAC (03/13/17) Family History Other Diabetes Hyperlipidemia Hypertension Social History Smoking/Tobacco Use Status: Former Tobacco Use Quit Date: 09/21/04 Smoking risk assessment performed?: Yes Alcohol Intake: current Alcohol Intake frequency: a few times a week Alcohol type: beer Drug use: Never Substance use type: does not use Housing: house Do you feel safe at home: Yes Do you feel safe in your relationship?: Yes Meds Allergies and Home Medications Allergies Allergy/AdvReac Type Severity Reaction Status Date / Time No Known Allergies Allergy Verified 03/01/25 14:14 Home Medications ?Medication ?Instructions ?Recorded ?Confirmed ?Type sertraline 100 mg tablet 200 mg PO DAILY 09/06/15 03/01/25 History omeprazole 40 mg capsule,delayed 40 mg PO BID ##60 02/12/18 03/01/25 Rx release quetiapine 400 mg tablet (Seroquel) 800 mg PO HS 02/25/19 03/01/25 History cariprazine 6 mg capsule (Vraylar) 6 mg PO DAILY 03/31/19 03/01/25 History hydroxyzine HCl 25 mg tablet 25 mg PO QID 09/05/20 03/01/25 History buspirone 15 mg tablet 30 mg PO BID 05/13/22 03/01/25 History celecoxib 100 mg capsule (Celebrex) 200 mg PO DAILY PRN 04/29/23 03/01/25 History topiramate 50 mg tablet 50 mg PO BID 09/30/23 03/01/25 History simvastatin 80 mg tablet 80 mg PO QPM 04/12/24 03/01/25 History carbidopa 25 mg-levodopa 100 mg 1 tab PO QID #360 tabs 10/11/24 03/01/25 Rx tablet (Sinemet) sucralfate 1 gram tablet (Carafate) 1 g PO QID #360 tab-caps 12/14/24 03/01/25 Rx ipratropium 20 mcg-albuterol 100 1 puff inhalation QID PRN 03/01/25 03/01/25 History mcg/actuation mist for inhalation (Combivent Respimat) memantine 10 mg tablet 5 mg PO BID 03/01/25 03/01/25 History Exam Narrative Exam Narrative: Constitutional: alert, oriented, sitting up spitting into emesis bag constantly HEENT: normal appearance, head atraumatic, Neck midline, no masses Chest: clear to auscultation Cor: RRR S1 S2 no murmur Psych: normal mood, anxious and flat affect Results Last Vital Signs Temp 36.3 C L 03/01/25 15:49 Pulse 78 03/01/25 15:49 Resp 20 03/01/25 14:10 BP 146/74 H 03/01/25 15:49 Pulse Ox 94 03/01/25 14:10 Time Spent Time spent with Patient: <40 minutes Time was spent: preparing to see the patient(eg.review tests) and obtaining and/or reviewing separately [facility]
--- NOTE | 2025-03-01 17:52 | ANES.PREOP_ITS ---
General Info Date of Service Date Performed: 03/01/25 Height: 5 ft 11 in Weight: 86.183 kg Body Mass Index (BMI): 26.4 Surgical Procedure: Operation Date: 03/01/25 17:35 Proposed Procedure Side Surgeon p Gastroscopy/Removal Foreign Body Deysi Walsh MD Actual Procedure Side Surgeon p Gastroscopy/Removal Foreign Body Not Applicable Deysi Walsh MD Pre-Op Diagnosis Post-Op Diagnosis Esophageal foreign body Meds Allergies and Home Medications Allergies Allergy/AdvReac Type Severity Reaction Status Date / Time No Known Allergies Allergy Verified 03/01/25 14:14 Home Medication ?Medication ?Instructions ?Recorded sertraline 100 mg tablet 200 mg PO DAILY 09/06/15 omeprazole 40 mg capsule,delayed 40 mg PO BID ##60 02/12/18 release quetiapine 400 mg tablet (Seroquel) 800 mg PO HS 02/25/19 cariprazine 6 mg capsule (Vraylar) 6 mg PO DAILY 03/31/19 hydroxyzine HCl 25 mg tablet 25 mg PO QID 09/05/20 buspirone 15 mg tablet 30 mg PO BID 05/13/22 celecoxib 100 mg capsule (Celebrex) 200 mg PO DAILY PRN 04/29/23 topiramate 50 mg tablet 50 mg PO BID 09/30/23 simvastatin 80 mg tablet 80 mg PO QPM 04/12/24 carbidopa 25 mg-levodopa 100 mg 1 tab PO QID #360 tabs 10/11/24 tablet (Sinemet) sucralfate 1 gram tablet (Carafate) 1 g PO QID #360 tab-caps 12/14/24 ipratropium 20 mcg-albuterol 100 1 puff inhalation QID PRN 03/01/25 mcg/actuation mist for inhalation (Combivent Respimat) memantine 10 mg tablet 5 mg PO BID 03/01/25 Current Visit Medications: Current Medications Generic Name Dose Route Start Last Admin Trade Name Freq PRN Reason Stop Dose Admin IV Miscellaneous Supplies 1 each 03/01/25 15:00 Iv Access IV DIRECTED ERIBERTO Sodium Chloride 0 ml 03/01/25 14:51 03/01/25 15:08 Normal Saline Flush 10 Ml Syr IVP 20 ml PRN PRN Administration Sodium Chloride 0 ml 03/01/25 20:00 Normal Saline Flush 10 Ml Syr IVP BID ERIBERTO Sodium Chloride 0 ml 03/01/25 14:51 Normal Saline 10 Ml Vial IJ DIRECTED PRN PFSH Active Problems Active Problems: Problem Status Onset Code Alcohol abuse Chronic F10.10 Memory deficit Acute R41.3 Dysphagia Acute R13.10 Tubular adenoma Acute ~10/2020 D36.9 Colon polyp, hyperplastic Acute ~10/2020 K63.5 Esophageal foreign body Acute T18.108A Esophagitis Acute K20.9 Medical History Medical History Parkinsonism Diabetes mellitus, type II GERD (gastroesophageal reflux disease) COPD (chronic obstructive pulmonary disease) Schizophrenia Hyperlipidemia Surgical History Surgical History History of esophagogastroduodenoscopy (EGD) 05/20/19 Dr Elizabeth Jackson, [facility], If the biopsies do not show eosinophilic esophagitis, then he may be a candidate for Giovanni procedure to reduce the degree of inflammation. History of colonoscopy EGD - MAC (02/12/18) EGD - MAC (09/25/17) EGD - MAC (03/13/17) Tobacco Smoking/Tobacco Use Status: Former Tobacco Use Alcohol Alcohol Intake: current Alcohol intake frequency: a few times a week Alcohol type: beer Substance Use Substance use: Never Substance use type: does not use Vital Signs and Lab Results Vital Signs Most Recent Vital Signs in EMR: Most Recent Vital Signs Temp Pulse Resp BP Pulse Ox 37.1 C 93 H 20 136/72 96 03/01/25 17:25 03/01/25 17:25 03/01/25 17:25 03/01/25 17:25 03/01/25 17:25 Lab Results Blood Type / Crossmatch: No Data to Display Complete Blood Count: No Data to Display Complete Metabolic Panel: No Data to Display Liver Function Panel: No Data to Display Coagulation Panel: No Data to Display Cardiac Panel: No Data to Display Arterial Blood Gas: No Data to Display Venous Blood Gas: No Data to Display Pancreas Panel: No Data to Display Thyroid Panel: No Data to Display Infectious Disease: No Data to Display Blood Cultures: No Data to Display Toxicology Panel: No Data to Display Anesthesia Assessment and Plan Anesthesia History Personal History: No History of Anesthesia Complications Family History: No Family History of Anesthesia Complications Exercise Tolerance Exercise Tolerance: Metabolic Equivalents>4 Pertinent Negatives Pertinent Negatives: No Major Cardiovascular Symptoms or Complaints, No Major Pulmonary Symptoms or Complaints and No History of CVA/TIA Cardiac & Pulmonary Exam Cardiac Exam: Normal S1/S2 Heart Sounds Pulmonary Exam: Clear Bilateral Breath Sounds Implantable Cardiac Device Does patient have a Pacemaker or an ICD?: No Airway Exam Known Difficult Airway: No Mallampati Class: 1 Mouth Opening: Normal (> 3cm) Thyromental Distance: Greater than 3 cm Neck Range of Motion: Full ROM Neck Circumference: Normal Teeth Condition: Generalized Poor Dentition (none loose) ASA Classification ASA Score: ASA 3 Emergency Case?: Yes NPO Status NPO Status: Full Stomach Anesthesia Plan Resuscitation Status: Full Code Anesthesia Technique: General Anesthesia Airway Planned: Endotracheal Tube Monitors Used: Standard Monitors Preoperative Comments:: KEELEY
[2025-03-01] MEDS: Lactated Ringers 1,000 ML 30 ML IV (18:12)
--- NOTE | 2025-03-01 18:37 | ENDO_ITS ---
Date of service: 03/01/25 Time of Service: 18:37 Endoscopy Report DATE OF PROCEDURE: 03/01/25 PRE-OP DIAGNOSIS: Esophageal foreign body obstruction POST-OP DIAGNOSIS: same PROCEDURE: Flexible esophagoscopy to the gastric fundus with removal of esophageal obstructing food bolus SURGEON: Deysi Walsh ANESTHESIA TYPE: General LMA/ETT ESTIMATED BLOOD LOSS: 0 PATHOLOGY: none sent COMPLICATIONS: None DISPOSITION: floor (For after-hours discharge) INDICATIONS: Patient presents unable to swallow after getting meat lodged in his esophagus while eating lunch. He has had multiple episodes of food stuck in the esophagus. FINDINGS: Large meat bolus impacted in the proximal esophagus. After clearing the obstruction the entire esophagus was viewed demonstrating mild nichole esophageal inflammation and furrowing of the proximal esophagus. There was no stricture in the distal esophagus. PROCEDURE DESCRIPTION: The patient was administered satisfactory general endotracheal anesthesia and placed on the operating table in the semierect position. A timeout was observed noting the patient's identity, the goal of the procedure. A bite block was placed which was lubricated and the flexible upper endoscope was inserted under direct vision into the proximal esophagus. The large meat bolus was identified and a 4 pronged grasper was used to remove a large piece. The scope was replaced and a second portion of the meat bolus was removed with a second application of the 4 pronged grasper. The scope was again replaced and now irrigation fluid and gentle pushing was used to advance the remaining meat into the stomach. Retroflexion maneuver was performed and no hiatal hernia was noted. The GE junction corresponded with the diaphragm at 45 cm from the incisors. All gas was evacuated from the stomach and the scope was withdrawn inspecting all aspects of the mucosa completely. The scope was then removed. The patient tolerated the procedure well with plans to take him to the [facility] for recovery and discharge to home.
--- NOTE | 2025-03-01 18:45 | PDOC.DSDIS_ITS ---
Date of service: 03/01/25 Discharge Plan Disposition Patient Disposition: Home Condition: Good Discharge Details Reason For Visit: FB throat Attending Provider: Deysi Walsh Primary Care Provider: Prasanna Browne Home Meds and New Rx's Prescriptions: No Action celecoxib [Celebrex] 100 mg capsule 200 mg PO DAILY PRN Patient Comments: took 200mg [employer] topiramate 50 mg tablet 50 mg PO BID sucralfate [Carafate] 1 gram tablet 1 g PO QID Qty: 360 3RF hydroxyzine HCl 25 mg tablet 25 mg PO QID buspirone 15 mg tablet 30 mg PO BID carbidopa-levodopa [Sinemet] 25-100 mg tablet 1 tab PO QID Qty: 360 3RF Rx Instructions: Take around 6am, 10am, 2pm, and 6pm (about every 4 hours) sertraline 100 MG tablet 200 mg PO DAILY quetiapine [Seroquel] 400 mg tablet 800 mg PO HS omeprazole 40 MG capsule,delayed release(DR/EC) 40 mg PO BID Qty: 60 1RF Vraylar 6 mg Capsule 6 mg PO DAILY simvastatin 80 mg tablet 80 mg PO QPM Patient Comments: filled on 04/01, pt states not taking. Combivent Respimat 20-100 mcg/actuation mist 1 puff INHALATION QID PRN Patient Comments: INHALE 1 PUFF BY MOUTH FOUR TIMES DAILY NEEDED FOR COUGH OR WHEEZING. REDUCE USING TOLERATED memantine 10 mg tablet 5 mg PO BID Discharge Instructions Additional Instructions: Continue to take your medications as prescribed including omeprazole 40 mg 2 stephanie es daily and sucralfate 4 times daily. If you are eating meat, be sure to cut the meat up into very small pieces and follow each bite of food with a drink of water. Referrals: Prasanna Browne [Primary Care Provider] - (2 weeks) Activity:: Activity as Tolerated Diet:: As Tolerated Discharge Orders Discharge Orders: Discharge Order (Routine); Ordered 03/01/25 Ordered By: Deysi Walsh Discharge Data Discharge Date/Time-TO BE ENTERED AT DEPARTURE: 03/01/25 18:50 DS: Diagnosis Discharge Diagnosis (1) Esophageal foreign body: Start date: 03/01/25 Status: Acute Asessment and Plan: Patient had a successful esophagoscopy with removal of the foreign body. He will recover on the [facility] floor and be discharged home when appropriate.
--- NOTE | 2025-03-01 18:57 | W.ANESPOSTOP ---
Postoperative Evaluation Date, Time and Location Date Performed: 03/01/25 Time Performed: 19:00 Patient Location: PACU Vital Signs Most Recent Imported Vital Signs: Most Recent Vital Signs Temp Pulse Resp BP Pulse Ox 36.6 C 78 17 120/83 97 03/01/25 18:52 03/01/25 18:50 03/01/25 18:50 03/01/25 18:50 03/01/25 18:50 Pain Score Most Recent Pain Score: Most Recent Pain Score Pain Level 3 03/01/25 18:50 Assessment Mental Status: Awake (Alert & Oriented to Patient Baseline) Airway and Respiratory Function: Patent airway with normal (patient baseline) respiratory exam Cardiovascular Function: Hemodynamically Stable Hydration Status: Adequately Hydrated Nausea & Vomiting: No Nausea or Vomiting Pain: Pain is tolerable per patient Peripheral Nerve Block: Patient did not receive a nerve block
--- NOTE | 2025-03-01 20:23 | NUR.NOTE ---
Pt came to [facility] from PACU. He has declined to stay for further evaluation before leaving. Pt has not voided since coming to [facility]. Declines to stay until he does. He has eaten applesauce and gisel jannet without nausea or vomiting. Vital signs are stable and IV has been removed. Pt escorted by wheelchair to lobby where family is waiting.
== END 2025-03-01 20:30 | disposition home or self-care (01) ==
LOC: ER 16:16 → DSU 18:03 → MS 19:37
PROVIDERS: Admitting Provider Surgery; Emergency Provider Physician Assistant; PCP Physician Assistant; Visit Provider Surgery
PROC: 0DC68ZZ Extirpation of Matter from Stomach, Via Natural or Artificial Opening Endoscopic (ICD-10-PCS; CPT 43247; principal; 2025-03-01 17:35)
DX: T18.128A Food in esophagus causing other injury, initial encounter (principal); F10.10 Alcohol abuse, uncomplicated; K22.10 Ulcer of esophagus without bleeding; K21.9 Gastro-esophageal reflux disease without esophagitis; F20.9 Schizophrenia, unspecified; E78.5 Hyperlipidemia, unspecified; J44.9 Chronic obstructive pulmonary disease, unspecified; E11.9 Type 2 diabetes mellitus without complications; G20.A1 Parkinson's disease without dyskinesia, without mention of fluctuations
CPT/HCPCS: 43247; 87426; 96374; 96375; 99222; 99285; G0378; J1100; J1610; J2003; J2405; J2704

== ENCOUNTER → 2025-03-15 09:38 | Outpatient (BNVA) | payer MEDICARE, MEDICAID, SELFPAY | PROVIDERS: PCP Physician Assistant; Visit Provider Psychiatry & Neurology Neurology | DX: G21.11 Neuroleptic induced parkinsonism (principal); R13.10 Dysphagia, unspecified; R41.3 Other amnesia; E11.9 Type 2 diabetes mellitus without complications | CPT/HCPCS: 99214 ==

== ENCOUNTER 2025-04-05 15:24 | Outpatient (REF) | payer MEDICARE, MEDICAID, SELFPAY ==
[2025-04-05 18:14] LABS: HCT 38.9 % (40.0-50.0); HGB 12.7 g/dL (13.5-17.5); MCH 30.0 pg (27.0-33.0); MCHC 32.6 % (32.0-36.0); MCV 92 fL (80-95); MPV 10.5 fL (8.0-11.0); Platelet Count 219 10^3/uL (130-400); RBC 4.23 10^6/uL (4.36-5.78); RDW 13.3 % (11.8-14.1); RDW-SD 45.0 fL; WBC 8.53 10^3/uL (4.4-10.8)
[2025-04-05 23:22] LABS: ALT 19 U/L (16-63); AST 44 U/L (15-37); Albumin 4.1 g/dL (3.4-5.0); Alkaline Phosphatase 94 U/L (46-116); Anion Gap 9.3 mmol/L (3-11); BUN 15 mg/dL (7-18); Bilirubin, Total 0.3 mg/dL (0.2-1.0); CO2 25.7 mmol/L (21.0-32.0); Calcium 9.1 mg/dL (8.5-10.1); Chloride 105 mmol/L (98-107); Cholesterol 148 mg/dL (<200); Estimated GFR 102.25 (mL/min/1.73m2); Glucose 103 mg/dL (74-106); Potassium 4.3 mmol/L (3.5-5.1); Sodium 140 mmol/L (136-145); Total Protein 6.8 g/dL (6.4-8.2); Triglyceride 87 mg/dL (<150)
[2025-04-05 23:50] LABS: Calculated LDL 59 mg/dL (<100); HDL Cholesterol 72 mg/dL (>or=40)
== END 2025-04-05 15:25 | disposition home or self-care (01) ==
LOC: NCHCN 15:24
PROVIDERS: PCP Physician Assistant; Visit Provider Physician Assistant
DX: E78.5 Hyperlipidemia, unspecified (principal); Z12.5 Encounter for screening for malignant neoplasm of prostate; K21.9 Gastro-esophageal reflux disease without esophagitis
CPT/HCPCS: 80053; 80061; 85027; 84154

== ENCOUNTER → 2025-06-13 09:03 | Outpatient (BNVA) | payer MEDICARE, MEDICAID, SELFPAY | PROVIDERS: PCP Physician Assistant; Referring Provider Physician Assistant; Visit Provider Psychiatry & Neurology Neurology | DX: G21.11 Neuroleptic induced parkinsonism (principal); R13.10 Dysphagia, unspecified; R41.3 Other amnesia; E11.9 Type 2 diabetes mellitus without complications | CPT/HCPCS: 99214 ==